=== PATIENT | male | born 1990 | race Caucasian/White ===

== ENCOUNTER 2021-07-22 11:05 | Outpatient (REF) | payer OTHER, SELFPAY ==
[2021-07-22 12:03] LABS: Influenza A PCR NEGATIVE (Negative); Influenza B PCR NEGATIVE (Negative); Resp Syncy Virus RNA Qual PCR NEGATIVE (Negative); SARS COV2 PCR INHOUSE NEGATIVE (Negative)
== END 2021-07-22 11:06 | disposition home or self-care (01) ==
LOC: HO.LNP 11:05
PROVIDERS: Visit Provider Internal Medicine
DX: Z20.822 Contact with and (suspected) exposure to COVID-19 (principal); R43.9 Unspecified disturbances of smell and taste
CPT/HCPCS: 0241U

== ENCOUNTER 2022-05-26 13:27 | Outpatient (REF) | payer OTHER, SELFPAY ==
--- NOTE | ~2022-05-26 | XR_ITS ---
EXAMINATION: CR X-RAY FOOT AND ANKLE RIGHT CLINICAL INFORMATION: Right foot and ankle pain. COMPARISON: None TECHNIQUE: 3 views each of the right foot and ankle were obtained. FINDINGS: The ankle joint and mortise are intact. The tarsal bones are normally aligned. The metatarsals and phalanges are intact. There is no acute fracture or dislocation. The soft tissues are unremarkable. XR/XR ankle RT min 3V IMPRESSION: Unremarkable right foot and ankle.
--- NOTE | ~2022-05-26 | XR_ITS ---
EXAMINATION: CR X-RAY FOOT AND ANKLE RIGHT CLINICAL INFORMATION: Right foot and ankle pain. COMPARISON: None TECHNIQUE: 3 views each of the right foot and ankle were obtained. FINDINGS: The ankle joint and mortise are intact. The tarsal bones are normally aligned. The metatarsals and phalanges are intact. There is no acute fracture or dislocation. The soft tissues are unremarkable. XR/XR foot RT min 3V IMPRESSION: Unremarkable right foot and ankle.
== END 2022-05-26 13:28 | disposition home or self-care (01) ==
LOC: HO.HMGCX 13:27
PROVIDERS: Visit Provider Internal Medicine
DX: S93.401A Sprain of unspecified ligament of right ankle, initial encounter (principal)
CPT/HCPCS: 73610; 73630

== ENCOUNTER 2022-12-08 18:26 | Outpatient (REF) | payer OTHER, SELFPAY ==
[2022-12-08 19:31] LABS: Influenza A PCR NEGATIVE (Negative); Influenza B PCR NEGATIVE (Negative); Resp Syncy Virus RNA Qual PCR NEGATIVE (Negative); SARS COV2 PCR INHOUSE NEGATIVE (Negative)
== END 2022-12-08 18:27 | disposition home or self-care (01) ==
LOC: HO.LNP 18:26
PROVIDERS: Visit Provider Nurse Practitioner Family
DX: R09.89 Other specified symptoms and signs involving the circulatory and respiratory systems (principal); Z20.822 Contact with and (suspected) exposure to COVID-19
CPT/HCPCS: 0241U

== ENCOUNTER 2022-12-20 11:44 | Outpatient (REF) | payer OTHER, SELFPAY ==
--- NOTE | ~2022-12-20 | XR_ITS ---
EXAMINATION: XR chest 2V CLINICAL INFORMATION: Reason for Exam R07.89 - Other chest pain COMPARISON: No prior chest x-ray available in our system for comparison at the time of this dictation. TECHNIQUE: XR chest 2V Lungs and Val: Both lungs are clear. Pleura: Normal. Costophrenic angles are sharp. No pneumothorax. Heart: The heart is normal in size. Mediastinum: The mediastinum is within normal limits.. Bones: Skeletal structures included are normal for patient's age. XR/XR chest 2V IMPRESSION: No radiographic evidence of acute cardiopulmonary disease.
--- NOTE | ~2022-12-20 | XR_ITS ---
EXAMINATION: XR ABDOMEN CLINICAL INFORMATION: Pain COMPARISON: None TECHNIQUE: Frontal view. FINDINGS: There is increased amount of stool projecting over the distribution of the colon raising suspicion for constipation. There is no evidence of bowel obstruction, however. There is no evidence of abnormal calcifications. There is no acute skeletal structure changes. There is no evidence of small-bowel obstruction. There is no free air in the abdomen. XR/XR abdomen 3V IMPRESSION: Increased amount of stool in the colon suggesting constipation. Please correlate with clinical presentation.
== END 2022-12-20 11:45 | disposition home or self-care (01) ==
LOC: HO.HMGCX 11:44
PROVIDERS: Visit Provider Physician Assistant Medical
DX: R07.89 Other chest pain (principal); R10.9 Unspecified abdominal pain; R19.7 Diarrhea, unspecified
CPT/HCPCS: 71046; 74021

== ENCOUNTER 2023-05-16 11:25 | Outpatient (AMB) | payer OTHER, SELFPAY ==
--- NOTE | 2023-05-16 11:28 | AM.OFFWIN_ITS ---
Intake Vital Signs 05/16/23 11:35 Height 5 ft 8 in BP 120/70 Blood Pressure Location Rt brachial Position Sitting Pulse 104 H Pulse Source Pulse Oximeter Temp 98.4 F Temp Source Oral Pulse Oximetry (%) 98 Oxygen Delivery Method Room Air Intake Visit Reasons: EST/right leg redness warm to touch Intake Note: pt is here for right leg redness, warm to touch since morning. Patient Tobacco Use Status: Current everyday Tobacco user Allergies No Known Allergies Allergy (Verified 05/16/23 11:34) Do you need a note to return to daycare/school/sports/work: Yes HPI HPI Comments History of Present Illness Details This is a 32-year-old male who presents to the office today for sick visit. Patient complaining of erythema and swelling of the medial aspect of his right knee. Patient is concerned because he is in contact with a lot of chemicals at work including ZDA (zinc diacrylate), which can cause skin irritation. Patient denies any fevers/chills or other systemic symptoms. He is otherwise feeling well without any chest pain, shortness of breath, abdominal pain nausea/vomiting/diarrhea. [facility] Social History Patient Tobacco Use Status: Current everyday Tobacco user Review of Systems Const All systems reviewed & are unremarkable except as noted in HPI and below Reports no additional complaints Eyes Reports no additional complaints ENT Reports no additional complaints Card Reports no additional complaints Resp Reports no additional complaints GI Reports no additional complaints Musc Reports no additional complaints Skin/Breast Reports system reviewed and no additional complaints, except as documented and Reports change in pigmentation Neuro Reports no additional complaints Psych Reports no additional complaints Endo Reports no additional complaints Tyrone/Lymph Reports no additional complaints Aller/Immun Reports no additional complaints Physical Exam Vital Signs: Last Vital Signs Temp 98.4 F 05/16/23 11:35 Pulse 104 H 05/16/23 11:35 BP 120/70 05/16/23 11:35 Pulse Ox 98 05/16/23 11:35 Oxygen Delivery Method Room Air 05/16/23 11:35 Const General: cooperative, healthy appearing, no acute distress and well developed Orientation/consciousness: patient oriented x3 HEENT Head: Yes normal to inspection Ears: hearing grossly normal bilaterally General nose exam: Normal external nose present Face and sinus: Yes normal facial exam Mouth: Normal oral and palatal mucosa present Eyes General: appearance normal, both eyes and all related structures Pupils: Equal, round and reactive pupils present EOM: EOMs intact bilaterally Resp Effort & Inspection: normal respiratory effort and no respiratory distress Auscultation: clear to auscultation bilaterally Cardio Rate: regular rate Rhythm: regular rhythm Heart sounds: no gallops, no murmurs and no rubs Peripheral pulses: Peripheral pulses 2+ throughout GI Inspection: No distended Palpation (GI): Soft to palpation and nontender Auscultation: normal bowel sounds Skin Other: Poorly defined erythema extending from the medial aspect of his right thigh to the medial aspect of his right brown with minimal swelling localized to the area of erythema. The area is hot to the touch. No induration or fluctuance to suggest abscess. No calf swelling or calf tenderness to palpation. Neuro General: patient oriented x3 Cranial nerves: Yes CN's II-XII intact bilaterally and Yes Equal, round and reactive pupils present Gait exam (Neuro): Normal gait present Motor exam (neuro): 5/5 motor strength present throughout Extrem General: Yes normal to inspection, Yes full ROM and Yes no clubbing, cyanosis or edema Psych Appearance: grossly normal Mental Status: mental status grossly normal Affect: Anxious affect present Assessment & Plan Assessment & Plan (1) Cellulitis of left leg: Code(s): L03.116 - Cellulitis of left lower limb Plan: This is a 32-year-old male presenting with erythema of his right leg. History and physical are most consistent with cellulitis of the right lower extremity. Patient expressed some concern for DVT but there is no calf swelling or tenderness to palpation, no recent immobilization to suggest deep vein thrombosis and he has minimal swelling localized to the area of erythema making cellulitis more likely. However, the patient expressed some concern so I offered him an ultrasound to definitively rule this out but he declined at this time. Patient sent home on p.o. cephalexin 500 mg 4 times daily x7 days. Patient was also given p.o. ibuprofen 800 mg every 8 hours to help with the swelling and pain. Patient advised to elevate the leg. The area of erythema was traced with surgical marker. Patient was instructed to follow-up here or go to the emergency room if erythema starts to spread past the tracing or if he were to develop calf swelling or tenderness to palpation, fever/chills, or other systemic symptoms. Patient advised to follow-up with his primary care physician to monitor for improvement. Patient verbalized understanding and is agreeable with the plan. Medications: New cephalexin 500 mg PO QID 28 caps 0RF ibuprofen 800 mg PO Q8H PRN 20 tabs 0RF pain, swelling Coding Level of Care Code Est Pt Level 3 (88547) Diagnoses Cellulitis of left leg L03.116
[2023-05-16 11:35] VITALS: BP 120/70; PULSE 104; TEMP 36.9; O2SAT 98
== END 2023-05-16 12:10 | disposition home or self-care (01) ==
PROVIDERS: Visit Provider Physician Assistant Medical
DX: L03.116 Cellulitis of left lower limb (principal)
CPT/HCPCS: 99051; 99213

== ENCOUNTER 2025-02-21 19:14 | Inpatient (IN) | payer OTHER, SELFPAY ==
[2025-02-21] VITALS (20 sets, daily range): BP systolic 79–161; BP diastolic 36–116; PULSE 125–169; RESP 18–30; TEMP 32–40.2; O2SAT 98–100; BMI 17.0
--- NOTE | ~2025-02-21 | XR_ITS ---
EXAMINATION: XR CHEST 1 VIEW HISTORY: sternal pain, hypoxia COMPARISON: Comparison is made with the prior examination dated 02/21/2025. FINDINGS: Two AP portable views of the chest performed at 3:41 PM are submitted. There is diffuse airspace opacity throughout the right lung. There is a small airspace opacity in the left midlung zone. There are small bilateral pleural effusions. There is opacification of the left lung base which may represent atelectasis, pneumonia, or pleural fluid. There is no pneumothorax. The heart is normal in size. The bones are intact. XR/XR chest 1V IMPRESSION: Diffuse bilateral airspace opacities throughout the right lung and at the left lung base, with a small additional airspace opacity in the left midlung zone. There are associated small bilateral pleural effusions. Findings may represent diffuse pneumonia or asymmetric pulmonary edema. Electronically signed by: Jerome Mustafa MD 02/27/2025 03:54 PM EDT
--- NOTE | ~2025-02-21 | XR_ITS ---
CLINICAL HISTORY: confirm central line placement 1 view chest x-ray Comparison: Chest x-ray from 02/21/2025. Findings: Endotracheal tube and enteric tube are redemonstrated without significant change. New right IJ approach central line terminates near the cavoatrial junction. Mild worsening of the bibasilar atelectasis. No pneumothorax in this portable image. No pleural effusion. Imaged mediastinum and osseous structures appear unchanged. IMPRESSION: No pneumothorax post right IJ central line placement. This document has been electronically signed by: Corey Lyles MD on 02/21/2025 22:11:12
--- NOTE | ~2025-02-21 | XR_ITS ---
CLINICAL HISTORY: tube placement confirmation 1 view chest x-ray Comparison: Chest x-ray from 12/20/2022 Findings: Endotracheal tube terminates in the mid to upper thoracic trachea. Mild bibasilar atelectasis. No pneumothorax or pleural effusion. Enteric tube terminates in the imaged stomach. Lung apices of the obscured. Osseous structures are unremarkable for [id number]. IMPRESSION: Endotracheal tube terminates in the mid to upper thoracic trachea. This document has been electronically signed by: Corey Lyles MD on 02/21/2025 21:30:59
--- NOTE | ~2025-02-21 | CT_ITS ---
CLINICAL HISTORY: hypoxic CT angiography chest with contrast. With MIP MPR Postprocessing. Comparison: Chest x-ray from 02/21/2025 Findings: The endotracheal tube terminates in the midthoracic trachea. Enteric tube terminates in the imaged stomach. No central pulmonary embolism. No aortic dissection. Mild bibasilar atelectasis. No pneumothorax or pleural effusion. Borderline splenomegaly in the [id number]. Multilevel Schmorl's nodes and endplate sclerosis noted in the imaged thoracic vertebrae. IMPRESSION: 1. No central pulmonary embolism. 2. Mild bibasilar atelectasis. This document has been electronically signed by: Corey Lyles MD on 02/21/2025 21:41:50
--- NOTE | ~2025-02-21 | CT_ITS ---
CLINICAL HISTORY: sepsis CT abdomen and pelvis with contrast Comparison: X-rays of the abdomen from 12/20/2022 Findings: Mild bibasilar atelectasis. Enteric tube terminates in the imaged stomach. Splenomegaly with spleen measuring 14 cm. Mild fat deposition of the liver with motion artifacts. Additional artifacts related to superficial metal and positioning of the upper extremities. Pharyngeal cap of the gallbladder are noted. Adrenal glands are normal. Pancreas unremarkable for technique and artifacts. Mild small bowel dilatation measures 3 cm diameter (imaged 13 of series 27). This is concerning for small bowel obstruction. The appendix is within normal limits. Wall thickening of the large intestine is nonspecific and concerning for colitis (diffuse). Fluid in the large intestine as can be seen with diarrhea type illnesses and colitis. Mild wall thickening of the urinary bladder is nonspecific. Gas and Mcwilliams catheter noted within the urinary bladder. Prostate gland measures 4.4 cm transverse. No free intraperitoneal air. No acute pelvic fracture. Mild height loss of the L1 appears old and accentuated by Schmorl's nodes. IMPRESSION: 1. Mild small bowel dilatation concerning for small bowel obstruction. 2. Wall thickening of the large intestine is nonspecific and concerning for diffuse colitis. This document has been electronically signed by: Corey Lyles MD on 02/21/2025 21:38:19
--- NOTE | ~2025-02-21 | CT_ITS ---
CLINICAL HISTORY: ams CT head without contrast Comparison: None available Findings: No acute intracranial hemorrhage. No midline shift or hydrocephalus. No arterial territorial infarction by CT. Bilateral nasal bone deformities are old. Retention cysts of the partially imaged right maxillary sinus measures 1.2 cm. No acute skull fracture. Previous orbit reconstruction hardware and fixation hardware of the remodeling of the hale of the left maxillary sinus with atelectasis of the remaining left maxillary sinus in the soft tissue opacification. Small left mastoid effusion. IMPRESSION: 1. No acute intracranial abnormality by CT. This document has been electronically signed by: Corey Lyles MD on 02/21/2025 21:29:33
--- NOTE | 2025-02-21 19:27 | ECG_ITS ---
Test Reason : OD Blood Pressure : */* mmHG Vent. Rate : 157 BPM Atrial Rate : 157 BPM P-R Int : 120 ms QRS Dur : 92 ms QT Int : 316 ms P-R-T Axes : 74 84 73 degrees QTcB Int : 510 ms Sinus tachycardia Nonspecific ST-T wave changes Abnormal ECG No previous ECGs available Referred By: Celeste Mcwilliams Electronically Signed By: Jesus Manuel Curran
[2025-02-21] MEDS: 0.9 % Sodium Chloride 1,608 ML 1608 ML IV (19:46)
[2025-02-21] MEDS: cefTRIAXone sodium 2 GM VIAL IVPUSH (19:55)
[2025-02-21] MEDS: Acetaminophen 1,000 MG/100 ML PIGGYBACK 400 MG IV (19:55)
[2025-02-21 20:03] LABS: Venous Blood Gas Refer to POC result
[2025-02-21 20:03] LABS: Basophils Percent Auto 0.2 % (0-2); Eosinophils Percent Auto 0.3 % (0-4); PLT CLUMP 1; SCAN SMEAR FLAG 1
[2025-02-21 20:04] LABS: VBG Base Excess -9.5 mmol/L; VBG HCO3 15 mmol/L (22-26); VBG pCO2 29 mmHg; VBG pH 7.31 (7.32-7.43); VBG pO2 36 mmHg
[2025-02-21 20:05] LABS: Eosinophils Absolute Auto 0.1 X10*3/uL (0.0-0.4); Hematocrit 48.5 % (42.0-52.0); Hemoglobin 17.4 g/dl (14.0-18.0); Imm Gran Abs Auto 0.28 X10*3/uL (0.00-0.03); Imm Gran Pct Auto 1.3 % (0.0-0.4); Lymphocytes Absolute Auto 2.8 X10*3/uL (1.2-4.9); Lymphocytes Percent Auto 12.9 % (20-40); MANUAL DIFF FLAG SCAN; Mean Corpuscular HGB Conc 35.9 g/dl (31.0-36.0); Mean Corpuscular Hemoglobin 32.2 pg (27.0-33.0); Mean Corpuscular Volume 89.6 fL (80.0-98.0); Mean Platelet Volume 11.1 fL (9.4-12.4); Monocytes Absolute Auto 1.3 X10*3/uL (0.1-1.2); Monocytes Percent Auto 5.9 % (2-11); Neutrophils Absolute Auto 17.3 x10*3/uL (2.0-8.3); Neutrophils Percent Auto 79.4 % (45-73); Red Blood Count 5.41 X10*6/uL (4.60-5.80); Red Cell Distribution Width 13.6 % (11.0-16.0)
[2025-02-21] MEDS: Etomidate 20 MG/10 ML VIAL IVPUSH (20:06)
[2025-02-21] MEDS: Rocuronium Bromide 50 MG/5 ML VIAL IVPUSH (20:06)
[2025-02-21] MEDS: propofoL 1,000 MG/100 ML VIAL 9.65 MG IVCONT (20:11)
[2025-02-21 20:12] LABS: Ethanol < 10 mg/dL
[2025-02-21 20:13] LABS: Acetaminophen LAB < 3 mcg/mL (<30); Alanine Aminotransferase 25 U/L (0-40); Albumin Level 4.1 g/dL (3.5-5.0); Alkaline Phosphatase 83 U/L (39-117); Anion Gap 26 (12-20); Aspartate Amino Transferase 72 U/L (5-37); Bilirubin Total 2.8 mg/dL (0.0-1.0); Blood Urea Nitrogen 44 mg/dL (9-16); Carbon Dioxide 14 mmol/L (22-29); Chloride 102 mmol/L (96-108); Creatinine Clr Calc Pharmacy 30.5; Estimated Glomerular Filt Rate 29; Glucose Random 132 mg/dL (60-115); Lipase 70 U/L (8-78); Magnesium 2.2 mg/dL (1.6-2.6); Potassium 4.8 mmol/L (3.3-5.1); Salicylate < 5.0 mg/dL (15-30); Sodium 137 mmol/L (135-145); Total Protein 9.5 g/dL (6.5-8.0)
[2025-02-21 20:17] LABS: Lactic Acid 10.2 mmol/L (0.5-2.0)
--- NOTE | 2025-02-21 20:26 | ED_ITS ---
HPI - General Adult General Chief complaint: Overdose Stated complaint: OD, 4mg narcan given Time Seen by Provider: 02/21/25 19:25 Source: EMS Limitations: other (AMS, OD) History of Present Illness ED Provider: Celeste Mcwilliams PA-C HPI narrative: 34-year-old male with a history of polysubstance abuse presents after heroin overdose. Patient was found in his vehicle unresponsive by police, he received 4 mg of intranasal Narcan. He became slightly more responsive. Related Data Previous Rx's ?Medication ?Instructions ?Recorded cephalexin 500 mg capsule 500 mg PO QID #28 caps 05/16/23 ibuprofen 800 mg tablet 800 mg PO Q8H PRN pain, swelling 05/16/23 #20 tabs Allergies Allergy/AdvReac Type Severity Reaction Status Date / Time No Known Allergies Allergy Verified 02/21/25 19:27 Review of Systems 2 Review of Systems: Unable to obtain Yes all other systems are reviewed and are negative PMFSH Past Medical History Attestation statement: The following information was validated with the patient. Medical History (Updated 02/22/25 @ 03:50 by ROBERT Pineda) Polysubstance abuse Social History Social History Household Members: Unknown / Unable to assess Housing: Unknown / Unable to assess Patient Tobacco Use Status: Tobacco use Unknown Use of substances other than those prescribed or required for medical reasons: Unable to respond Advance Directives: No Advance Directives Information Provided: No Recently lost weight without trying: Unsure Poor oral hygiene: Yes Physical Exam ED Vital Signs: Vital Signs - 24 hr 02/21/25 19:24 02/21/25 19:45 02/21/25 20:15 Temperature 104.4 F H Pulse Rate 162 H Respiratory Rate 25 H Blood Pressure 161/116 H Pulse Oximetry 98 Oxygen Delivery Method Room Air Fraction of Inspired Oxygen 30 02/21/25 20:25 02/21/25 21:33 02/21/25 21:42 Temperature 102.6 F H Pulse Rate 139 H Respiratory Rate Blood Pressure 100/62 79/36 L Pulse Oximetry Oxygen Delivery Method Fraction of Inspired Oxygen 02/21/25 21:42 02/21/25 22:00 02/21/25 22:30 Temperature 101.8 F H Pulse Rate 139 H 128 H Respiratory Rate 18 Blood Pressure 81/51 L 80/52 L Pulse Oximetry 98 Oxygen Delivery Method Mechanical Ventilation Fraction of Inspired Oxygen 30 02/21/25 22:31 02/21/25 22:35 02/21/25 22:40 Temperature 100.3 F Pulse Rate 128 H 127 H 128 H Respiratory Rate 25 H Blood Pressure 80/52 L 80/52 L 80/52 L Pulse Oximetry 100 Oxygen Delivery Method Mechanical Ventilation Fraction of Inspired Oxygen 02/21/25 22:42 02/21/25 22:45 02/21/25 22:50 Temperature 99.3 F Pulse Rate 125 H 128 H Respiratory Rate Blood Pressure 80/51 L 80/53 L Pulse Oximetry Oxygen Delivery Method Fraction of Inspired Oxygen BMI result Body Mass Index 17.0 Const Other: Awake, not coherent, responding to painful stimuli only, cachectic, or mucosa is dry, the patient was disheveled and full of feces both dry an active diarrhea, shaking rigors Eyes Other: Right pupil dilated approximately 8 mm, the left approximately 2 mm Resp Other: Hyperventilating Cardio Other: Warm, perfusing, Skin Other: Multiple track pena noted over upper extremities, no rash Neuro Other: Ulnar responds to painful stimuli Course Reevaluation(s) Reevaluation #1: This is a sepsis focused exam performed at 7:28 p.m. on February 21, obtaining blood cultures, lactic acid, giving weight based IV fluid therapy and initiating antibiotics, in addition to identifying a source for sepsis Time: 19:28 Reevaluation #2: Some labs are returning, he has a acute kidney injury, he could also be in rhabdomyolysis, adding on a CPK Consultations Consultation #1: consult to Dr. Woodward......... I relayed the situation to Dr. Woodward, he would like to wait for CT results before accepting the patient, I will continue to update him with findings as they return Time: 20:33 Consultation #2: Dr. Woodward is accepting the patient, he wants the RR to be increased to 25 on the vent, we are obtaining ABG too Time: 21:43 Medications Administered Generic Name Dose Route Start Last Admin Trade Name Freq PRN Reason Stop Dose Admin Heparin Sodium (Porcine) 5,000 unit 02/21/25 23:00 02/21/25 23:54 Heparin Sodium,Porcine 5,000 Unit/Ml Vial SUBCUT 5,000 unit Q8H KORINA Administration Propofol 1,000 mg in 100 mls @ 0 mls/hr 02/21/25 21:45 02/22/25 01:52 Diprivan IVCONT 50 mcg/kg/min .Q0M KORINA 16.08 mls/hr Administration Protocol Per Protocol Fentanyl 1,000 mcg in 100 mls @ 0 mls/hr 02/21/25 22:15 02/22/25 03:43 Sublimaze/Ns IVCONT 75 mcg/hr .Q0M KORINA 7.5 mls/hr Titration Protocol Per Protocol Norepinephrine Bitartrate 8 mg in 250 mls @ 0 mls/hr 02/21/25 22:15 02/22/25 03:44 Levophed IVCONT 0.26 mcg/kg/min .Q0M KORINA 26.13 mls/hr Titration Protocol Per Protocol Sodium Bicarbonate 150 meq/ 1,000 mls @ 100 mls/hr 02/22/25 00:15 02/22/25 00:47 Dextrose IV 100 mls/hr .Q10H KORINA Administration Midazolam HCl 2 mg 02/21/25 22:11 02/22/25 03:11 Midazolam Hcl 2 Mg/2 Ml Vial IVPUSH 2 mg Q2H PRN Administration Ventilator synchrony Discontinued Medications Generic Name Dose Route Start Last Admin Trade Name Freq PRN Reason Stop Dose Admin Ceftriaxone Sodium 2 gm 02/21/25 19:28 02/21/25 19:55 Ceftriaxone Sodium 2 Gm Vial IVPUSH 02/21/25 19:29 2 gm ONCE ONE Administration Etomidate 20 mg 02/21/25 21:49 02/21/25 20:06 Etomidate 20 Mg/10 Ml Vial IVPUSH 02/21/25 21:50 20 mg ONCE ONE Administration Sodium Chloride 1,608 mls @ 1,608 mls/hr 02/21/25 19:28 02/21/25 20:53 Ns 30 ml/kg infuse over 1 hr (1608 ml) 02/21/25 20:27 Infused IV Infusion .Q1H STA Acetaminophen 1,000 mg in 100 mls @ 400 mls/hr 02/21/25 19:52 02/21/25 20:10 Ofirmev IV 02/21/25 20:06 Infused ONCE ONE Infusion Vancomycin HCl 1,500 mg/ 500 mls @ 333.333 mls/hr 02/21/25 20:15 02/21/25 22:44 Sodium Chloride IV 02/21/25 21:44 Infused ONCE ONE Infusion Piperacillin Sod/Tazobactam 50 mls @ 100 mls/hr 02/21/25 20:15 02/21/25 21:13 Sod 3.375 gm/ Sodium Chloride IV 02/21/25 20:44 Infused ONCE ONE Infusion Sodium Chloride 1,000 mls @ 1,998 mls/hr 02/21/25 21:45 02/21/25 22:25 Ns IV 02/21/25 22:15 Infused .Q31M KORINA Infusion Acetaminophen 1,000 mg in 100 mls @ 400 mls/hr 02/22/25 03:09 02/22/25 03:48 Ofirmev IV 02/22/25 03:23 Infused ONCE ONE Infusion Iohexol 100 ml 02/21/25 20:41 02/21/25 20:41 Iohexol 350 Mg/Ml 100 Ml Infus..Btl IV 02/21/25 20:42 85 ml ONCE ONE Administration Rocuronium [place] 50 mg 02/21/25 21:50 02/21/25 20:06 Rocuronium [place] 50 Mg/5 Ml Vial IVPUSH 02/21/25 21:51 50 mg ONCE ONE Administration Procedures Procedure Narrative Procedure Narrative: Ultrasound-guided IV 18 gauge 1-3/4 inch IV placed in right upper extremity, adequate blood return, flushes well secured with Tegaderm Central Line Placement Right IJ: Time Out Performed: No Patient Placed on Monitor/Pulse Ox: Yes MD Prep: mask, gown and gloves Central Line Prep: Chlorhexidine scrub Ultrasound Used for Placement: Yes Central Line Lumen Inserted: triple Post Procedure: sutured in place, good blood return, all ports aspirated, flushed, capped and sterile dressing applied Post Procedure X-Ray: tip of catheter in good position Patient Tolerated Procedure: no complications Intubation Intubation Type:: Emergency Endotracheal Intubation Intubation Date:: 02/21/25 Time out performed: No sedative: Etomidate Mg Given: 20 paralytic: Rocuronium Mg Given: 50 Laryngoscope: fiber optic video scope ET Tube Size: 7.5 ET Tube Uncuffed: Yes Tube Secured Depth (cm): 22 Tube Secured Location: lips Tube Placement Confirmation: visualized tube passing through cords, equal breath sounds bilaterally and confirmation by capnometry Patient Tolerated Procedure: no complications Medical Decision Making Medical Decision Making MDM Narrative: 34-year-old male with a history of polysubstance abuse presents after heroin overdose. Patient was found in his vehicle unresponsive by police, he received 4 mg of intranasal Narcan. He became slightly more responsive. Problem: Polysubstance abuse History: Per EMS which is limited I have considered the following differential diagnoses: Overdose, Toxic ingestion, sepsis, intracranial hemorrhage, acute intra-abdominal pathology, PE Plan: The patient is tachycardic 160s, hypertensive, quite tachypneic, his CO2 is only 12, his respiratory rate is 60s, the concern is he will fatigue, we will be prepping for intubation. The patient is also febrile, concerned for sepsis. In addition to screening labs, we will be obtaining blood cultures, lactic acid, chest x-ray, urinalysis, viral panel, inflammatory markers. We will be starting empiric weight based IV fluids and broad-spectrum antibiotics. Giving rectal Tylenol. Also concerned for toxidrome, we will be obtaining an ethanol and a drug screen. I am concerned for intracranial hemorrhage, he has a blown pupil, we will be obtaining a CT of the brain. He is actively spilling large quantities of stool, concerned for intra-abdominal pathology, obtaining a CT of the abdomen. Unclear if he is hypoxic, we are not getting appropriate oxygen saturations, given his tachypnea and tachycardia, I am concerned for PE, we will obtain a CT angio of the chest. Drug screen pending, he could have use cocaine, given tachycardia with ischemic changes in EKG adding a troponin. We will be reaching out to the ICU for consult. I have independently reviewed the following tests: Labs: Significant leukocytosis with left shift, not anemic, acute kidney injury creatinine is 2.56, gap is 26, 1st lactic is 10.2, LFTs are elevated, CPK 503, troponin 1268.7, venous pH 7.31, bicarb 15, drug screen positive for cocaine and fentanyl, serum ethanol less than 10, viral panel negative, urine infected, Chest x-ray 1. IMPRESSION: Endotracheal tube terminates in the mid to upper thoracic trachea. Chest x-ray 2. IMPRESSION: No pneumothorax post right IJ central line placement. EKG: Sinus tachycardia, rate of 157, ST and T-wave abnormalities inferior lead, QTC 510 CT brain: MPRESSION: 1. No acute intracranial abnormality by CT. CT abdomen and pelvis: IMPRESSION: 1. Mild small bowel dilatation concerning for small bowel obstruction. 2. Wall thickening of the large intestine is nonspecific and concerning for diffuse colitis. CT angio chest:IMPRESSION: 1. No central pulmonary embolism. 2. Mild bibasilar atelectasis. Lab Data 02/21/25 19:48 02/21/25 19:48 Labs: Lab Results 02/21/25 02/21/25 02/21/25 Range/Units 19:48 20:00 20:04 WBC 21.8 H (4.8-10.8) X10*3/uL RBC 5.41 (4.60-5.80) X10*6/uL Hgb 17.4 (14.0-18.0) g/dl Hct 48.5 (42.0-52.0) % MCV 89.6 (80.0-98.0) fL MCH 32.2 (27.0-33.0) pg MCHC 35.9 (31.0-36.0) g/dl RDW 13.6 (11.0-16.0) % Plt Count 101 L (160-400) X10*3/uL MPV 11.1 (9.4-12.4) fL Immature Gran % (Auto) 1.3 H (0.0-0.4) % Neut % (Auto) 79.4 H (45-73) % Lymph % (Auto) 12.9 L (20-40) % [place] % (Auto) 5.9 (2-11) % Eos % (Auto) 0.3 (0-4) % Baso % (Auto) 0.2 (0-2) % Lymph # (Auto) 2.8 (1.2-4.9) X10*3/uL [place] # (Auto) 1.3 H (0.1-1.2) X10*3/uL Eos # (Auto) 0.1 (0.0-0.4) X10*3/uL Baso # (Auto) 0.0 (0.0-0.2) X10*3/uL Abs Immat Gran (auto) 0.28 H (0.00-0.03) X10*3/uL Absolute Neuts (auto) 17.3 H (2.0-8.3) x10*3/uL Absolute Nucleated RBC 0.000 (0.0-0.012) X10*3/uL Nucleated RBC % (auto) 0.0 (0.0-0.2) /100WBC Smear Tech's Comments VERIFIED Hold Blue Top SEE NOTE VBG pH 7.31 L (7.32-7.43) VBG pCO2 29 mmHg VBG pO2 36 mmHg VBG HCO3 15 L (22-26) mmol/L VBG O2 Saturation 47.0 % VBG Base Excess -9.5 mmol/L Sodium 137 (135-145) mmol/L Potassium 4.8 (3.3-5.1) mmol/L Chloride 102 (96-108) mmol/L Carbon Dioxide 14 L (22-29) mmol/L Anion Gap 26 H (12-20) BUN 44 H (9-16) mg/dL Creatinine 2.56 H (0.5-1.4) mg/dL Estim Creat Clear Calc 30.5 Estimated GFR 29 Random Glucose 132 H (60-115) mg/dL Lactic Acid 10.2 H* (0.5-2.0) mmol/L Lactic Acid F/U @ 2Hr (0.5-2.0) mmol/L Calcium 10.0 (8.4-10.2) mg/dL Magnesium 2.2 (1.6-2.6) mg/dL Total Bilirubin 2.8 H (0.0-1.0) mg/dL AST 72 H (5-37) U/L ALT 25 (0-40) U/L Alkaline Phosphatase 83 (39-117) U/L Total Creatine Kinase 503 H (38-174) U/L Troponin I High Sens 1268.7 H* (<3.5-35.0) ng/L C-Reactive Protein 40.68 H (< or = 0.50) mg/dL Total Protein 9.5 H (6.5-8.0) g/dL Albumin 4.1 (3.5-5.0) g/dL Lipase 70 (8-78) U/L Urine Color Urine Appearance Urine pH (5.0-9.0) Ur Specific [place] (1.005-1.025) Urine Protein (Neg-Trace) mg/dL Urine Glucose (UA) (Negative) mg/dL Urine Ketones (Negative) mg/dL Urine Blood (Negative) Urine Nitrite (Negative) Ur Leukocyte Esterase (Negative) Urine RBC (0-2) /HPF Urine WBC (0-5) /HPF Ur Squamous Epith Cells (0-2) /HPF Urine Bacteria (None Seen) Hyaline Casts (0-2) /LPF Granular Casts Salicylates < 5.0 L (15-30) mg/dL Urine Opiates Screen (Not Detect) Ur Buprenorphine Scrn (Not Detect) ng/mL Ur Oxycodone Screen (Not Detect) ng/mL Urine Methadone Screen (Not Detect) ng/mL Urine Fentanyl Screen (Not Detect) Acetaminophen < 3 (<30) mcg/mL Ur Barbiturates Screen (Not Detect) Ur Phencyclidine Scrn (Not Detect) Ur Amphetamines Screen (Not Detect) U Benzodiazepines Scrn (Not Detect) Urine Cocaine Screen (Not Detect) U Marijuana (THC) Screen (Not Detect) Ethyl Alcohol < 10 mg/dL Influenza Type A (PCR) NEGATIVE (Negative) Influenza Type B (PCR) NEGATIVE (Negative) RSV RNA Qual (PCR) NEGATIVE (Negative) SARS-CoV-2 RNA (RT-PCR) NEGATIVE (Negative) 02/21/25 02/21/25 02/21/25 Range/Units 20:48 22:02 22:09 WBC (4.8-10.8) X10*3/uL RBC (4.60-5.80) X10*6/uL Hgb (14.0-18.0) g/dl Hct (42.0-52.0) % MCV (80.0-98.0) fL MCH (27.0-33.0) pg MCHC (31.0-36.0) g/dl RDW (11.0-16.0) % Plt Count (160-400) X10*3/uL MPV (9.4-12.4) fL Immature Gran % (Auto) (0.0-0.4) % Neut % (Auto) (45-73) % Lymph % (Auto) (20-40) % [place] % (Auto) (2-11) % Eos % (Auto) (0-4) % Baso % (Auto) (0-2) % Lymph # (Auto) (1.2-4.9) X10*3/uL [place] # (Auto) (0.1-1.2) X10*3/uL Eos # (Auto) (0.0-0.4) X10*3/uL Baso # (Auto) (0.0-0.2) X10*3/uL Abs Immat Gran (auto) (0.00-0.03) X10*3/uL Absolute Neuts (auto) (2.0-8.3) x10*3/uL Absolute Nucleated RBC (0.0-0.012) X10*3/uL Nucleated RBC % (auto) (0.0-0.2) /100WBC Smear Tech's Comments Hold Blue Top VBG pH 7.31 L (7.32-7.43) VBG pCO2 31 mmHg VBG pO2 75 mmHg VBG HCO3 16 L (22-26) mmol/L VBG O2 Saturation 92.0 % VBG Base Excess -8.8 mmol/L Sodium (135-145) mmol/L Potassium (3.3-5.1) mmol/L Chloride (96-108) mmol/L Carbon Dioxide (22-29) mmol/L Anion Gap (12-20) BUN (9-16) mg/dL Creatinine (0.5-1.4) mg/dL Estim Creat Clear Calc Estimated GFR Random Glucose (60-115) mg/dL Lactic Acid (0.5-2.0) mmol/L Lactic Acid F/U @ 2Hr 1.1 (0.5-2.0) mmol/L Calcium (8.4-10.2) mg/dL Magnesium (1.6-2.6) mg/dL Total Bilirubin (0.0-1.0) mg/dL AST (5-37) U/L ALT (0-40) U/L Alkaline Phosphatase (39-117) U/L Total Creatine Kinase (38-174) U/L Troponin I High Sens (<3.5-35.0) ng/L C-Reactive Protein (< or = 0.50) mg/dL Total Protein (6.5-8.0) g/dL Albumin (3.5-5.0) g/dL Lipase (8-78) U/L Urine Color [place] A Urine Appearance Turbid Urine pH 5.0 (5.0-9.0) Ur Specific [place] 1.025 (1.005-1.025) Urine Protein 300 (3+) H (Neg-Trace) mg/dL Urine Glucose (UA) Negative (Negative) mg/dL Urine Ketones Negative (Negative) mg/dL Urine Blood Large (3+) H (Negative) Urine Nitrite Positive H (Negative) Ur Leukocyte Esterase Small (1+) H (Negative) Urine RBC 6-10 H (0-2) /HPF Urine WBC 11-20 (0-5) /HPF Ur Squamous Epith Cells 11-20 (0-2) /HPF Urine Bacteria 1+ (None Seen) Hyaline Casts 6-10 (0-2) /LPF Granular Casts Present Salicylates (15-30) mg/dL Urine Opiates Screen Not Detected (Not Detect) Ur Buprenorphine Scrn Not Detected (Not Detect) ng/mL Ur Oxycodone Screen Not Detected (Not Detect) ng/mL Urine Methadone Screen Not Detected (Not Detect) ng/mL Urine Fentanyl Screen POSITIVE H (Not Detect) Acetaminophen (<30) mcg/mL Ur Barbiturates Screen Not Detected (Not Detect) Ur Phencyclidine Scrn Not Detected (Not Detect) Ur Amphetamines Screen Not Detected (Not Detect) U Benzodiazepines Scrn Not Detected (Not Detect) Urine Cocaine Screen POSITIVE H (Not Detect) U Marijuana (THC) Screen Not Detected (Not Detect) Ethyl Alcohol mg/dL Influenza Type A (PCR) (Negative) Influenza Type B (PCR) (Negative) RSV RNA Qual (PCR) (Negative) SARS-CoV-2 RNA (RT-PCR) (Negative) Critical Care Time Critical Care Time Critical Care Time: Yes Total Critical Care Time: 60 Attestation: I Celeste Mcwilliams PA-C have personally performed critical care time not including lines and procedures. Discharge Plan Discharge Clinical Impression: Overdose, Sepsis, ENRRIQUE (acute kidney injury), Colitis, Acute alteration in mental status Patient Disposition: Admitted As Inpatient Interventions: Admission Worksheet (ED) Last Done: 02/21/25 23:30 Discharge Date/Time: 02/21/25 23:31
[2025-02-21 20:35] LABS: Troponin-I High Sensitivity 1268.7 ng/L (<3.5-35.0)
[2025-02-21 20:38] LABS: Influenza A PCR NEGATIVE (Negative); Influenza B PCR NEGATIVE (Negative); Resp Syncy Virus RNA Qual PCR NEGATIVE (Negative); SARS COV2 PCR INHOUSE NEGATIVE (Negative)
[2025-02-21 20:41] LABS: Platelet Count 101 X10*3/uL (160-400); SLIDE REVIEW VERIFIED; White Blood Count 21.8 X10*3/uL (4.8-10.8)
[2025-02-21] MEDS: iohexoL 350 MG/ML 100 ML INFUS..BTL IV (20:41)
[2025-02-21] MEDS: Piperacillin Sodium/Tazobactam 3.375 GM in 0.9 % Sodium Chloride 50 ML IV (20:43)
[2025-02-21 20:54] LABS: C Reactive Protein 40.68 mg/dL (< or = 0.50)
[2025-02-21] MEDS: vancomycin HCL 1,500 MG in 0.9 % Sodium Chloride 500 ML 333.33 MG IV (21:03)
[2025-02-21 21:06] LABS: Appearance Urine Turbid; Color Urine Orange; Glucose Urine UA Negative (Negative); Leukocyte Esterase Urine Small (1+) (Negative); Nitrite Urine Positive (Negative); Specific Gravity - Urine 1.025 (1.005-1.025); UMIC TRIGGER UACC YES; Urine Blood Large (3+) (Negative); Urine Ketones Negative (Negative); Urine Protein 300 (3+) mg/dL (Neg-Trace)
[2025-02-21 21:07] LABS: Amphetamine Screen Urine Not Detected (Not Detect); Barbiturates, Urine Not Detected (Not Detect); Benzodiazepines Screen Urine Not Detected (Not Detect); Buprenorphine Scr Not Detected (Not Detect); Cannabinoid Screen Urine Not Detected (Not Detect); Cocaine Screen Urine POSITIVE (Not Detect); Fentanyl, urine POSITIVE (Not Detect); Methadone Screen, Urine Not Detected (Not Detect); Opiate Screen Urine Not Detected (Not Detect); Oxycodone Screen Urine Not Detected (Not Detect); Phencyclidine Screen Urine Not Detected (Not Detect)
[2025-02-21 21:14] LABS: Bacteria Urine 1+ (None Seen); Granular Casts Urine Present; UACC Culture Trigger YES
--- NOTE | 2025-02-21 21:16 | PC.NURSE ---
Addendum entered by Soren Chavis 02/21/25 21:26: OG tube placed at time of intubation. Original Note: 1919 - pt was biba ound in car unresponsive by PD, surrounded by needles/heroin, 4mg IN Narcan given and became slightly responsive, for ems painful stimuli. on arrival pt is tachypneic, tachycardiac, R. pupil slightly larger compared to Antonio Coreas PA to room. 1944 temp sensing almeida placed with no urine output. U/S IV established to RUE by PA, pt was difficult stick delay in iv/labs obtained. delay in ekg as pt tremulous, not accurate reading. 1999- pt placed on nonrebreather and RT notified, set up for intubation. 2005 - 20mg etomidate and 50mg rocuronium given, 2007 intubated 7.5 the 23 at lip. 2010 - Propofol started at 30mcg/kg/min, well sedated. [address] with this RN and RT, no issues, return to room at 2042. 2047 - approx 50mL orange UO, sent to lab. 2049- pt remains febrile at 102.4, ice packs placed on pt. 2120 - central line placed by ROBERT to R. neck.
--- NOTE | 2025-02-21 21:33 | PC.NURSE ---
pt noted to be moving extremities, kurt marie verbal to give 20mg propofol bolus, given at this time. infusion rate increased to 40mcg/kg/min.
--- NOTE | 2025-02-21 21:37 | PC.NURSE ---
per ROBERT ok to use central line at this time, infusions moved to this access.
[2025-02-21] MEDS: 0.9 % Sodium Chloride 1,000 ML 1998 ML IV (21:38)
--- NOTE | 2025-02-21 21:45 | PC.NURSE ---
cooling blanket on pt per Lyudmila JONES verbal temp 102.4F.
[2025-02-21 21:52] LABS: Reflex Lactate? Lactic Acid Added
--- NOTE | 2025-02-21 22:07 | P.HPCC_ITS ---
History of Present Illness Date of Service: 02/21/25 Attending physician on admission: Victorino Woodward Chief Complaint: Unresponsive ?The patient is a 34-year-old male with a past medical history of polysubstance abuse,? who presented to emergency department was a overdose. ? Patient was found in his vehicle unresponsive by police,? received 4 mg of intro nasal Narcan,? and became slightly more responsive. On arrival to the emergency department,? patient is tachycardic to 150s, respiratory rate 50s and 60s,? febrile to 104, required emergent intubation for airway protection. Laboratory data significant for WBC 21.8,? serum bicarb 14, anion gap 26, BUN 44, creatinine 2.56, lactic 10.2,? Troponin sensitivity 1268, CK 503. ?Venous gas:? 7. URINE TOX: ? positive for fentanyl and cocaine, also positive for UTI? IMAGING:? ?HEAD CT: no acute findings ?ABDOMINAL CT: ? concerning for small bowel obstruction ?Chest CT:? no acute infectious process ?ED course:? ?Patient received? about 4 L? bolus,? Narcan, vancomycin 1500mg, Zosyn 3.375 g, ceftriaxone 2 g and Tylenol 1 g.? Started on vasopressors due to high sedation requirements? Review of Systems 2 Review of Systems: Yes unobtainable due to endotracheal tube PMFSH Past Medical History Medical History (Updated 02/22/25 @ 03:50 by ROBERT Pineda) Polysubstance abuse Social History Social History Household Members: Unknown / Unable to assess Housing: Unknown / Unable to assess Patient Tobacco Use Status: Tobacco use Unknown Use of substances other than those prescribed or required for medical reasons: Unable to respond Currently Displaying Signs/Symptoms of Drug Intoxication Withdrawal: No Advance Directives: No Advance Directives Information Provided: No Recently lost weight without trying: Unsure Poor oral hygiene: Yes Meds Allergies Allergy/AdvReac Type Severity Reaction Status Date / Time No Known Allergies Allergy Verified 02/21/25 19:27 Active Medications: Current Medications Propofol (Diprivan) 1,000 mg in 100 mls @ 0 mls/hr IVCONT .Q0M KORINA; Protocol Last Titration: 02/21/25 21:33 Dose: 40 mcg/kg/min, 12.86 mls/hr Sodium Chloride (Ns) 1,000 mls @ 1,998 mls/hr IV .Q31M KORINA Stop: 02/21/25 22:15 Last Admin: 02/21/25 21:38 Dose: 1,998 mls/hr Home Medications ?Medication ?Instructions ?Recorded ?Confirmed ?Last Taken ?Type buprenorphine 12 mg-naloxone 3 mg 1 film sublingual BID 02/22/25 02/22/25 Unknown History sublingual film (Suboxone) clonidine HCl 0.1 mg tablet 0.1 mg PO BID PRN anxiety 02/22/25 02/22/25 Unknown History Physical Exam 2 Vital Signs: Vital Signs: Last Vital Signs Temp 101.8 F H 02/21/25 21:42 Pulse 139 H 02/21/25 21:42 Resp 18 02/21/25 21:42 BP 81/51 L 02/21/25 21:42 Pulse Ox 98 02/21/25 21:42 O2 Del Method Mechanical Ventil ation 02/21/25 21:42 FiO2 30 02/21/25 20:15 BMI result Body Mass Index 17.0 Sepsis focused exam performed at 2230 on 02/21/2025 ?General:? Intubated ?HEENT:? Head is normocephalic, atraumatic, Right pupil round reactive to light accommodation, Left pupil constrictive, but reactive to light.? Buccal mucosa is dry, Neck is supple ?Cardiac:? Clear S1-S2, no murmurs rubs or gallops. ?Pulmonary:? Clear to auscultation, no wheezes, rales or rhonchi. ?Abdomen:? ?Abdomen soft, non-tender, non-distended. Normal bowel sounds. No pulsatile mass. No hepatosplenomegaly. ?Musculoskeletal:? Moving all 4 extremities randmly and to painful stimuli.? The strength is 5/5 bilaterally and throughout all 4 extremities.? Gait not assessed at this point. ?Neurologic:? No focal deficits noted.Motor strength as above.?? ?Skin:? Left hand track pena, discoloration. ? No ulcers. Vascular:? 2+ pulses upper and lower extremities distally.? Results Labs 02/22/25 04:08 02/22/25 04:08 Labs: Laboratory Results - last 24 hr 02/21/25 02/21/25 02/21/25 19:48 20:00 20:48 MCV 89.6 MCH 32.2 MCHC 35.9 RDW 13.6 Plt Count 101 L MPV 11.1 Immature Gran % (Auto) 1.3 H Neut % (Auto) 79.4 H Lymph % (Auto) 12.9 L [place] % (Auto) 5.9 Eos % (Auto) 0.3 Baso % (Auto) 0.2 Lymph # (Auto) 2.8 [place] # (Auto) 1.3 H Eos # (Auto) 0.1 Baso # (Auto) 0.0 Abs Immat Gran (auto) 0.28 H Absolute Neuts (auto) 17.3 H Absolute Nucleated RBC 0.000 Nucleated RBC % (auto) 0.0 Smear Tech's Comments VERIFIED Hold Blue Top SEE NOTE VBG pH 7.31 L VBG pCO2 29 VBG pO2 36 VBG HCO3 15 L VBG O2 Saturation 47.0 VBG Base Excess -9.5 Anion Gap 26 H Estim Creat Clear Calc 30.5 Estimated GFR 29 Random Glucose 132 H Lactic Acid 10.2 H* Calcium 10.0 Magnesium 2.2 Total Bilirubin 2.8 H AST 72 H ALT 25 Alkaline Phosphatase 83 Total Creatine Kinase 503 H C-Reactive Protein 40.68 H Total Protein 9.5 H Albumin 4.1 Lipase 70 Urine Color Ider A Urine Appearance Turbid Urine pH 5.0 Ur Specific [place] 1.025 Urine Protein 300 (3+) H Urine Glucose (UA) Negative Urine Ketones Negative Urine Blood Large (3+) H Urine Nitrite Positive H Ur Leukocyte Esterase Small (1+) H Urine RBC 6-10 H Urine WBC 11-20 Ur Squamous Epith Cells 11-20 Urine Bacteria 1+ Hyaline Casts 6-10 Granular Casts Present Salicylates < 5.0 L Urine Opiates Screen Not Detected Ur Buprenorphine Scrn Not Detected Ur Oxycodone Screen Not Detected Urine Methadone Screen Not Detected Urine Fentanyl Screen POSITIVE H Acetaminophen < 3 Ur Barbiturates Screen Not Detected Ur Phencyclidine Scrn Not Detected Ur Amphetamines Screen Not Detected U Benzodiazepines Scrn Not Detected Urine Cocaine Screen POSITIVE H U Marijuana (THC) Screen Not Detected Ethyl Alcohol < 10 Influenza Type A (PCR) NEGATIVE Influenza Type B (PCR) NEGATIVE RSV RNA Qual (PCR) NEGATIVE SARS-CoV-2 RNA (RT-PCR) NEGATIVE Assessment and Plan (1) Overdose: Status: Acute (2) Elevated troponin: Status: Acute (3) Acute respiratory failure: Status: Acute (4) UTI (urinary tract infection): Status: Acute (5) Cellulitis: Status: Acute (6) Small bowel obstruction: Status: Acute (7) ENRRIQUE (acute kidney injury): Status: Acute (8) Polysubstance abuse: Status: Acute Plan 34-year-old male with a past medical history of polysubstance abuse? admitted to ICU for management of septic shock and? overdose with fentanyl cocaine Plan: Neuro:? No acute issues. Cardiac Septic shock:? Skin vs UTI,? patient left hand has concerning cellulitis,? urine is positive for UTI.? lactic was 10 initially,? down trended to 1.1 after fluid resuscitation.? Received vancomycin and Zosyn in the emergency department.? We will continue.? Wean off vasopressors as tolerated.? ?Elevated troponin:? EKG with no acute changes,? troponin elevated to 1268,? likely due to demand from cocaine abuse.? We will repeat trop? Pulmonary:?? Acute respiratory failure secondary? overdose:? patient?s U tox positive for fentanyl and cocaine. ? Cause of sudden decompensation.? Wean off vent as tolerated Renal:??? ENRRIQUE,? nonoliguric. ? Received fluids in the emergency department. ? Continue to monitor renal indices and urine output Endo:? No acute issues.?? GI:?? Mild Small-bowel obstruction:? patient does not have increased amount of output from OG,? we will place OG tube intermittent suction.? Continue antibiotics,? general surgery consult in the morning.? ID:? ?Septic shock/ Cellulitis/ UTI: ? left hand concerning for cellulitis,? urine positive for UTI.? received empiric Zosyn and vancomycin in the emergency department.? Blood cultures are pending.? Continue vancomycin and Zosyn until blood cultures resulted Heme/Onc:? No acute issues. Psych: ? polysubstance abuse: ? consult addiction medicine when patient is extubated Miscellaneous:? No acute issues. Prophylaxis:? Heparin subcut/ IV protnix? CODE: FULL CODE Critical care time spent:? 90 minutes
[2025-02-21 22:13] LABS: Venous Blood Gas Refer to POC result
[2025-02-21 22:14] LABS: VBG Base Excess -8.8 mmol/L; VBG HCO3 16 mmol/L (22-26); VBG pCO2 31 mmHg; VBG pH 7.31 (7.32-7.43); VBG pO2 75 mmHg
[2025-02-21] MEDS: Midazolam HCl 2 MG/2 ML VIAL IVPUSH (22:17)
[2025-02-21 22:23] LABS: ~Lactic Acid-LAB USE ONLY 1.1 mmol/L (0.5-2.0)
[2025-02-21] MEDS: fentaNYL citrate/NS 1,000 MCG/100 ML PLAST..BAG 2.5 MCG IVCONT (22:23)
[2025-02-21] MEDS: Norepinephrine Bitartrate/D5W 8 MG/250 ML PLAST..BAG 5.03 MG IVCONT (22:30)
--- NOTE | 2025-02-21 22:31 | PC.NURSE ---
Fang ARANGO aware of HR/BP.
--- NOTE | 2025-02-21 23:02 | PC.NURSE ---
report givn to Jennifer MOLINA, RT at bedside for transport.
[2025-02-21] MEDS: Heparin Sodium,Porcine 5,000 UNIT/ML VIAL 5000 UNIT SUBCUT (23:54)
[2025-02-21 23:59] LABS: VBG Base Excess -10.9 mmol/L; VBG HCO3 13 mmol/L (22-26); VBG pCO2 25 mmHg; VBG pH 7.32 (7.32-7.43); VBG pO2 38 mmHg
[2025-02-22] VITALS (47 sets, daily range): BP systolic 90–119; BP diastolic 55–90; PULSE 104–143; RESP 22–35; TEMP 35–39.5; O2SAT 97–100; BMI 18.3
--- NOTE | 2025-02-22 | ECG_ITS ---
Test Reason : elevated trop Blood Pressure : */* mmHG Vent. Rate : 141 BPM Atrial Rate : 141 BPM P-R Int : 112 ms QRS Dur : 94 ms QT Int : 356 ms P-R-T Axes : 66 88 78 degrees QTcB Int : 545 ms Sinus tachycardia Nonspecific T wave abnormality Abnormal ECG When compared with ECG of 21-Feb-2025 20:19, No significant change was found Referred By: Fang Christina Electronically Signed By: Jesus Manuel Curran
--- NOTE | 2025-02-22 | ECG_ITS ---
Test Reason : NSTEMI? Blood Pressure : */* mmHG Vent. Rate : 112 BPM Atrial Rate : 112 BPM P-R Int : 118 ms QRS Dur : 84 ms QT Int : 332 ms P-R-T Axes : 59 85 72 degrees QTcB Int : 453 ms Sinus tachycardia Otherwise normal ECG When compared with ECG of 22-Feb-2025 04:46, Non-specific change in ST segment in Lateral leads Nonspecific T wave abnormality no longer evident in Lateral leads Referred By: Jesus Manuel Curran Electronically Signed By: Jesus Manuel Curran
[2025-02-22 00:44] LABS: Troponin-I High Sensitivity 1968.3 ng/L (<3.5-35.0)
[2025-02-22] MEDS: Sodium Bicarbonate 8.4% 150 MEQ in Dextrose 5 % 850 ML 100 MEQ IV ×2 (00:47→10:15)
[2025-02-22] MEDS: propofoL 1,000 MG/100 ML VIAL 16.08 MG IVCONT ×4 (01:52→18:04)
[2025-02-22 02:40] LABS: Venous Blood Gas Refer to POC result
[2025-02-22] MEDS: Midazolam HCl 2 MG/2 ML VIAL IVPUSH (03:11)
[2025-02-22] MEDS: Acetaminophen 1,000 MG/100 ML PIGGYBACK 400 MG IV ×2 (03:33→20:02)
[2025-02-22 04:21] LABS: Basophils Percent Auto 0.2 % (0-2); Hemoglobin 13.3 g/dl (14.0-18.0); Imm Gran Abs Auto 0.08 X10*3/uL (0.00-0.03); Imm Gran Pct Auto 0.7 % (0.0-0.4); Lymphocytes Absolute Auto 1.9 X10*3/uL (1.2-4.9); Lymphocytes Percent Auto 16.3 % (20-40); Mean Corpuscular HGB Conc 36.9 g/dl (31.0-36.0); Mean Corpuscular Hemoglobin 32.4 pg (27.0-33.0); Mean Corpuscular Volume 87.6 fL (80.0-98.0); Mean Platelet Volume 10.6 fL (9.4-12.4); Monocytes Absolute Auto 0.8 X10*3/uL (0.1-1.2); Monocytes Percent Auto 6.6 % (2-11); Neutrophils Absolute Auto 8.9 x10*3/uL (2.0-8.3); Neutrophils Percent Auto 76.2 % (45-73); Red Blood Count 4.11 X10*6/uL (4.60-5.80); Red Cell Distribution Width 13.5 % (11.0-16.0); White Blood Count 11.7 X10*3/uL (4.8-10.8)
[2025-02-22 04:22] LABS: MANUAL DIFF FLAG SCAN; Venous Blood Gas Refer to POC result
[2025-02-22 04:25] LABS: VBG Base Excess -2.5 mmol/L; VBG HCO3 19 mmol/L (22-26); VBG pCO2 26 mmHg; VBG pH 7.47 (7.32-7.43); VBG pO2 52 mmHg
[2025-02-22 04:40] LABS: Platelet Count 59 X10*3/uL (160-400); SLIDE REVIEW VERIFIED
[2025-02-22 04:43] LABS: B Type Natriuretic Peptide 717 pg/mL (<100)
[2025-02-22 04:45] LABS: Troponin-I High Sensitivity 2376.3 ng/L (<3.5-35.0)
[2025-02-22 04:54] LABS: Alanine Aminotransferase 23 U/L (0-40); Albumin Level 2.7 g/dL (3.5-5.0); Alkaline Phosphatase 56 U/L (39-117); Anion Gap 12 (12-20); Aspartate Amino Transferase 107 U/L (5-37); Bilirubin Total 1.1 mg/dL (0.0-1.0); Blood Urea Nitrogen 39 mg/dL (9-16); Calcium 7.3 mg/dL (8.4-10.2); Carbon Dioxide 18 mmol/L (22-29); Chloride 110 mmol/L (96-108); Estimated Glomerular Filt Rate 52; Glucose Random 118 mg/dL (60-115); Magnesium 1.8 mg/dL (1.6-2.6); Phosphorus 2.9 mg/dL (2.7-4.5); Potassium 2.9 mmol/L (3.3-5.1); Sodium 137 mmol/L (135-145); Total Protein 6.3 g/dL (6.5-8.0)
[2025-02-22] MEDS: Piperacillin Sodium/Tazobactam 4.5 GM in 0.9 % Sodium Chloride 100 ML IV (05:01)
[2025-02-22] MEDS: Pantoprazole Sodium 40 MG/10 ML VIAL IVPUSH ×2 (05:29→16:25)
[2025-02-22] MEDS: Potassium Chloride/H20 40 MEQ/100 ML PIGGYBACK 50 MEQ IV ×3 (05:30→19:16)
[2025-02-22] MEDS: Albumin Human 25 % 100 ML IV ×4 (05:45→22:43)
[2025-02-22] MEDS: Norepinephrine Bitartrate/D5W 8 MG/250 ML PLAST..BAG 28.14 MG IVCONT (05:56)
[2025-02-22] MEDS: fentaNYL citrate/NS 1,000 MCG/100 ML PLAST..BAG 12.5 MCG IVCONT ×2 (05:56→12:39)
--- NOTE | 2025-02-22 06:06 | HO.SKINPHOTO ---
Location: Left hand Category: ?lesion vs ulcer/cellulitis from IVDU/injections
--- NOTE | 2025-02-22 06:08 | PC.ADMIT ---
Pt admitted to ICU from ED at approx 2315. Upon initial assessment- pt sedated on propofol/fentanyl gtts, intermittently emerging from sedation, reaching for lines/tubes. PRN versed administered per MAR with some effect. L pupil constricted- [employer]ING [employer] [place] aware. Tmax 103.1 via core bladder probe-ice bags applied to B/L axilla and neck in addition to APAP 1000 mg IV x1, given with good effect. Sinus tach on tele, HR 130-140s. [employer] WORK[employer] aware of critical troponin, EKG obtained per order. Levophed gtt infusing and titrated to maintain MAP > 65. R IJ TLC placed in ED. ETT #7.5, 22 cm at lip, on ACVC settings. NPO- OGT to LIWS; initially with bilious drainage but becoming brown/blood streaked, output approx 600 mL- B[employer]ING [employer] WORKER aware, SQ heparin held. No BM. Mcwilliams in place, UOP as charted. Electrolytes replaced per MAR. Skin overall intact- L hand wound, picture uploaded in chart. Repositioned in bed q2hr with pillows. Bed locked in lowest position, alarm on. See EMR/flowsheet for further details.
--- NOTE | 2025-02-22 07:00 | CA_ITS ---
Transthoracic Echocardiogram Patient (Last, First, Middle): Vincent Thompson, Gender: Male Date of : 1990 Age: 34 Procedure Date: 02/22/2025 Procedure Type: Transthoracic Echocardiogram Height: 177.8 cm Weight: 57.61 kg BSA: 1.72 m2 Heart Rate: bpm BP: 113 / 83 mmHg Conclusions: - Normal left ventricular cavity size. There is normal left ventricular wall thickness. The left ventricular systolic function is borderline reduced. The visually estimated ejection fraction is between 45-50%. - The apical lateral and mid inferolateral segments are akinetic. - Normal right ventricular cavity size and systolic function. Findings Left Ventricle Normal left ventricular cavity size. There is normal left ventricular wall thickness. The left ventricular systolic function is borderline reduced. The visually estimated ejection fraction is between 45-50%. There is evidence of regional wall motion abnormalities. Diastolic function is indeterminate on the basis of available data. Wall Motion Rest Echo Findings The apical lateral and mid inferolateral segments are akinetic. Right Ventricle Normal right ventricular cavity size and systolic function. Atria The left atrium is normal in size. The right atrium is normal in size. Aortic Valve There is a normal trileaflet aortic valve. There is no aortic valve stenosis. There is no aortic valve regurgitation. Mitral Valve The mitral valve appears normal. There is no mitral valve regurgitation. There is no mitral valve stenosis. Pulmonic Valve The pulmonic valve is likely normal. Tricuspid Valve Normal tricuspid valve structure. There is no tricuspid valve regurgitation. Tricuspid regurgitation envelope is inadequate for calculation of right ventricular systolic pressure. Indeterminate right atrial pressure. Great Vessels All visible segments of the aorta are normal in size. Venous The inferior vena cava is normal in size and does not collapse with inspiration. The patient is on ventilator. Pericardium/Pleural There is no evidence of pericardial effusion. Measurements 2D Linear Measurements IVSd: 0.77 0.6-0.9/0.6-1.0 cm LVIDd: 4.04 3.9-5.3/4.2-5.9 cm LVIDd Index: 2.35 2.4-3.2/2.2-3.1 cm/m2 LVIDs: 3.19 2.0-3.6 cm LVPWd: 0.86 0.7-1.1 cm Ao Root: 2.70 2.1-3.5 cm LA Diam: 2.20 2.7-3.8/3.0-4.0 cm LAIDs Index: 1.28 1.5-2.3 cm/m2 LV Mass: 121.20 67-162/88-224 g LV Mass Index: 70.46 43-95/49-115 g/m2 LVOT Diam: 2.00 3.0+(-)1.3 cm 2D Systolic Function EF 4C: 60.00 >55% EF 2C: 38.80 >55% EF BiP: 49.50 >55% Mitral Valve MV Pk E: 0.69 MV PK A: 0.61 MV Decel Time: 122.00 E/A: 1.10 E'Lateral: 10.10 E'Medial: 8.81 E/E' Med: 7.90 E/E' Lat: 6.90 PHT: 36.00 MVA PHT: 6.11 Decel [place]: 5.67 Aortic Valve AoV Pk [place]: 0.97 AoV Mn [place]: 0.64 AoV VTI: 0.14 AoV Pk Grad: 4.00 Aov Mn Grad: 2.00 ASHLY Cont.VTI: 2.04 LVOT LVOT Pk [place]: 0.64 LVOT Mn [place]: 0.43 LVOT VTI: 0.09 LVOT Pk Grad: 2.00 LVOT Mn Grad: 1.00 LVOT Diam: 2.00 LVOT Area: 3.14 Diastolic Function MV Pk E: 0.69 MV Pk A: 0.61 E/A: 1.10 E'Medial: 8.81 E/E' Med: 7.90 E' Laterial: 10.10 E/E' Lat: 6.90 Great Vessels Aorta Ao Root-2D: 2.70 2.0-3.7 cm Pulmonary Valve PV Pk [place]: 0.87 Peak PV Grad: 3.00 Updated in Other Vendor System with Status of Final Jesus Manuel Curran MD electronically signed on 02/24/2025 2:50:12 PM with status of Final
[2025-02-22] MEDS: 0.9 % Sodium Chloride Flush 3 ML SYRINGE IVFLUSH ×3 (07:28→22:44)
[2025-02-22] MEDS: Chlorhexidine Gluc Oral Rinse 15 ML MOUTHWASH BUCCAL ×3 (07:40→20:00)
--- NOTE | 2025-02-22 08:54 | PHA.MEDREC ---
Addendum entered by Kalie Johnson RPh 02/22/25 09:01: reviewed by [facility]. Original Note: Pharmacy Consult ? Medication Reconciliation Pharmacy has completed the medication reconciliation. Unable to speak with patient due to him being intubated. Called patient contact on file Kika [phone] and left a message. Utilized claims to confirm med list. Will update med rec if there are any changes to patient medications when contact calls back.
--- NOTE | 2025-02-22 09:45 | MHC.CM.PN ---
Pt intubated in ICU : + tox screen upon arrival. Call placed to contact number in EMR: pt's mother answered and stated pt's grandmother is seriously ill and unable to have a meaningful conversation. She states pt has been homeless since last May and family has minimal to no contact with him. Pt's mother requested to speak with ICU provider for an update. CM to follow for finalization of d/c planning needs
[2025-02-22] MEDS: Potassium Chloride/H20 40 MEQ/100 ML PIGGYBACK 100 MEQ IV ×2 (10:11→12:18)
--- NOTE | 2025-02-22 10:33 | PM.CNCAR ---
History of Present Illness History of Present Illness Date of Service: 02/22/25 Requesting physician: Victorino Woodward Chief complaint: Overdose, elevated troponin Narrative: 34-year-old who is currently sedated and ventilated and has background history of polysubstance abuse. Presented to the emergency department reportedly with overdose. He was found unresponsive in his vagal by police and was given Narcan. In the ER the patient was tachycardic, and febrile to 104 and was emergently intubated for airway protection. His high sensitivity troponin levels are elevated. He also has been noticed to have MRSA bacteremia. He has a wound on the left hand which is dressed. Currently sedated and ventilated and history is quite limited. EKGs does not have any ischemic changes. Urine tox screen is positive for cocaine and fentanyl. He has acute kidney injury with creatinine of 2.56 and BUN of 44. Elevated lactate levels. He is currently on 2 pressors. Echocardiography reviewed which is showing mid to distal inferolateral wall akinesis. Overall LV function is normal. No obvious valvular pathology noted on this echocardiogram. No obvious signs of endocarditis. [facility] Past Medical History Medical History Polysubstance abuse Social History Social History Household Members: Unknown / Unable to assess Housing: Unknown / Unable to assess Patient Tobacco Use Status: Tobacco use Unknown Use of substances other than those prescribed or required for medical reasons: Unable to respond Currently Displaying Signs/Symptoms of Drug Intoxication Withdrawal: No Advance Directives: No Advance Directives Information Provided: No Recently lost weight without trying: Unsure Poor oral hygiene: Yes Meds Allergies Allergy/AdvReac Type Severity Reaction Status Date / Time No Known Allergies Allergy Verified 02/21/25 19:27 Active Medications: Current Medications Chlorhexidine Gluconate (Chlorhexidine Gluc Oral Rinse 15 Ml Mouthwash) 15 ml BUCCAL TID [facility] Last Admin: 02/22/25 07:40 Dose: 15 ml Heparin Sodium (Porcine) (Heparin Sodium,Porcine 5,000 Unit/Ml Vial) 5,000 unit SUBCUT Q8H [facility] Last Admin: 02/22/25 04:42 Dose: Not Given Propofol (Diprivan) 1,000 mg in 100 mls @ 0 mls/hr IVCONT .Q0M [facility]; Protocol Last Admin: 02/22/25 05:55 Dose: 50 mcg/kg/min, 16.08 mls/hr Fentanyl (Sublimaze/Ns) 1,000 mcg in 100 mls @ 0 mls/hr IVCONT .Q0M [facility]; Protocol Last Admin: 02/22/25 05:56 Dose: 125 mcg/hr, 12.5 mls/hr Norepinephrine Bitartrate (Levophed) 8 mg in 250 mls @ 0 mls/hr IVCONT .Q0M [facility]; Protocol Last Titration: 02/22/25 08:57 Dose: 0.24 mcg/kg/min, 24.12 mls/hr Sodium Bicarbonate 150 meq/ (Dextrose) 1,000 mls @ 100 mls/hr IV .Q10H [facility] Last Admin: 02/22/25 10:15 Dose: 100 mls/hr Piperacillin Sod/Tazobactam (Sod 4.5 gm/ Sodium Chloride) 100 mls @ 200 mls/hr IV Q8H [facility] Last Infusion: 02/22/25 05:30 Dose: Infused Albumin Human (Kedbumin 25 %) 100 mls @ 100 mls/hr IV Q6H [facility] Stop: 02/22/25 23:59 Last Infusion: 02/22/25 07:27 Dose: Infused Vancomycin HCl 1,500 mg/ (Sodium Chloride) 500 mls @ 333.333 mls/hr IV Q24H [facility] Potassium Chloride (Potassium Chloride/H20) 40 meq in 100 mls @ 100 mls/hr IV Q1H [facility] Stop: 02/22/25 11:14 Last Admin: 02/22/25 10:11 Dose: 100 mls/hr Midazolam HCl (Midazolam Hcl 2 Mg/2 Ml Vial) 2 mg IVPUSH Q2H PRN PRN Reason: Ventilator synchrony Last Admin: 02/22/25 03:11 Dose: 2 mg Naloxone HCl (Naloxone Hcl 0.4 Mg/Ml Vial) 0.2 mg IVPUSH Q2M PRN PRN Reason: Excessive sedation or RR < 8 Pantoprazole Sodium (Pantoprazole Sodium 40 Mg/10 Ml Vial) 40 mg IVPUSH BID@0630,1630 [facility] Last Admin: 02/22/25 05:29 Dose: 40 mg Pharmacy Consult (Consult Rx Vancomycin Dosing) 1 each MISCELLANE DAILY PRN PRN Reason: Consult order Sodium Chloride (0.9 % Sodium Chloride Flush 3 Ml Syringe) 3 ml IVFLUSH QSHIFT [facility] Last Admin: 02/22/25 07:28 Dose: 3 ml Home Medications ?Medication ?Instructions ?Recorded ?Confirmed ?Last Taken ?Type buprenorphine 12 mg-naloxone 3 mg 1 film sublingual BID 02/22/25 02/22/25 Unknown History sublingual film (Suboxone) clonidine HCl 0.1 mg tablet 0.1 mg PO BID PRN anxiety 02/22/25 02/22/25 Unknown History Physical Exam Vital Signs: Vital Signs: Last Vital Signs Temp 97.5 F 02/22/25 10:00 Pulse 116 H 02/22/25 10:00 Resp 22 H 02/22/25 10:00 BP 115/86 02/22/25 10:00 Pulse Ox 99 02/22/25 10:00 O2 Del Method Mechanical Ventil ation 02/22/25 10:00 FiO2 21 02/22/25 10:00 BMI result Body Mass Index 18.3 GENERAL APPEARANCE: Sedated and ventilated. NECK: no carotid bruit, no jugular venous distention. SKIN: Left arm dressed. HEART: no murmurs, regular rate and rhythm. Tachycardic. LUNGS: clear to auscultation bilaterally. ABDOMEN: soft, nontender. EXTREMITIES: no edema. PERIPHERAL PULSES: equal. NEUROLOGIC: No gross deficits, AAO X 3 Objective Labs and Meds 02/22/25 04:08 02/22/25 04:08 Lab results: Laboratory Results - last 24 hr 02/21/25 02/21/25 02/21/25 19:48 20:00 20:04 WBC 21.8 H RBC 5.41 Hgb 17.4 Hct 48.5 MCV 89.6 MCH 32.2 MCHC 35.9 RDW 13.6 Plt Count 101 L MPV 11.1 Immature Gran % (Auto) 1.3 H Neut % (Auto) 79.4 H Lymph % (Auto) 12.9 L [place] % (Auto) 5.9 Eos % (Auto) 0.3 Baso % (Auto) 0.2 Lymph # (Auto) 2.8 [place] # (Auto) 1.3 H Eos # (Auto) 0.1 Baso # (Auto) 0.0 Abs Immat Gran (auto) 0.28 H Absolute Neuts (auto) 17.3 H Absolute Nucleated RBC 0.000 Nucleated RBC % (auto) 0.0 Smear Tech's Comments VERIFIED Hold Blue Top SEE NOTE VBG pH 7.31 L VBG pCO2 29 VBG pO2 36 VBG HCO3 15 L VBG O2 Saturation 47.0 VBG Base Excess -9.5 Sodium 137 Potassium 4.8 Chloride 102 Carbon Dioxide 14 L Anion Gap 26 H BUN 44 H Creatinine 2.56 H Estim Creat Clear Calc 30.5 Estimated GFR 29 Random Glucose 132 H Lactic Acid 10.2 H* Lactic Acid F/U @ 2Hr Calcium 10.0 Phosphorus Magnesium 2.2 Total Bilirubin 2.8 H AST 72 H ALT 25 Alkaline Phosphatase 83 Total Creatine Kinase 503 H Troponin I High Sens 1268.7 H* C-Reactive Protein 40.68 H B-Natriuretic Peptide Total Protein 9.5 H Albumin 4.1 Lipase 70 Urine Color Urine Appearance Urine pH Ur Specific [place] Urine Protein Urine Glucose (UA) Urine Ketones Urine Blood Urine Nitrite Ur Leukocyte Esterase Urine RBC Urine WBC Ur Squamous Epith Cells Urine Bacteria Hyaline Casts Granular Casts Salicylates < 5.0 L Urine Opiates Screen Ur Buprenorphine Scrn Ur Oxycodone Screen Urine Methadone Screen Urine Fentanyl Screen Acetaminophen < 3 Ur Barbiturates Screen Ur Phencyclidine Scrn Ur Amphetamines Screen U Benzodiazepines Scrn Urine Cocaine Screen U Marijuana (THC) Screen Ethyl Alcohol < 10 Influenza Type A (PCR) NEGATIVE Influenza Type B (PCR) NEGATIVE RSV RNA Qual (PCR) NEGATIVE SARS-CoV-2 RNA (RT-PCR) NEGATIVE 02/21/25 02/21/25 02/21/25 20:48 22:02 22:09 WBC RBC Hgb Hct MCV MCH MCHC RDW Plt Count MPV Immature Gran % (Auto) Neut % (Auto) Lymph % (Auto) [place] % (Auto) Eos % (Auto) Baso % (Auto) Lymph # (Auto) [place] # (Auto) Eos # (Auto) Baso # (Auto) Abs Immat Gran (auto) Absolute Neuts (auto) Absolute Nucleated RBC Nucleated RBC % (auto) Smear Tech's Comments Hold Blue Top VBG pH 7.31 L VBG pCO2 31 VBG pO2 75 VBG HCO3 16 L VBG O2 Saturation 92.0 VBG Base Excess -8.8 Sodium Potassium Chloride Carbon Dioxide Anion Gap BUN Creatinine Estim Creat Clear Calc Estimated GFR Random Glucose Lactic Acid Lactic Acid F/U @ 2Hr 1.1 Calcium Phosphorus Magnesium Total Bilirubin AST ALT Alkaline Phosphatase Total Creatine Kinase Troponin I High Sens C-Reactive Protein B-Natriuretic Peptide Total Protein Albumin Lipase Urine Color [place] A Urine Appearance Turbid Urine pH 5.0 Ur Specific [place] 1.025 Urine Protein 300 (3+) H Urine Glucose (UA) Negative Urine Ketones Negative Urine Blood Large (3+) H Urine Nitrite Positive H Ur Leukocyte Esterase Small (1+) H Urine RBC 6-10 H Urine WBC 11-20 Ur Squamous Epith Cells 11-20 Urine Bacteria 1+ Hyaline Casts 6-10 Granular Casts Present Salicylates Urine Opiates Screen Not Detected Ur Buprenorphine Scrn Not Detected Ur Oxycodone Screen Not Detected Urine Methadone Screen Not Detected Urine Fentanyl Screen POSITIVE H Acetaminophen Ur Barbiturates Screen Not Detected Ur Phencyclidine Scrn Not Detected Ur Amphetamines Screen Not Detected U Benzodiazepines Scrn Not Detected Urine Cocaine Screen POSITIVE H U Marijuana (THC) Screen Not Detected Ethyl Alcohol Influenza Type A (PCR) Influenza Type B (PCR) RSV RNA Qual (PCR) SARS-CoV-2 RNA (RT-PCR) 02/21/25 02/21/25 02/22/25 23:38 23:52 04:08 WBC 11.7 H RBC 4.11 L D Hgb 13.3 L D Hct 36.0 L D MCV 87.6 MCH 32.4 MCHC 36.9 H RDW 13.5 Plt Count 59 L D MPV 10.6 Immature Gran % (Auto) 0.7 H Neut % (Auto) 76.2 H Lymph % (Auto) 16.3 L [place] % (Auto) 6.6 Eos % (Auto) 0.0 Baso % (Auto) 0.2 Lymph # (Auto) 1.9 [place] # (Auto) 0.8 Eos # (Auto) 0.0 Baso # (Auto) 0.0 Abs Immat Gran (auto) 0.08 H Absolute Neuts (auto) 8.9 H Absolute Nucleated RBC 0.000 Nucleated RBC % (auto) 0.0 Smear Tech's Comments VERIFIED Hold Blue Top VBG pH 7.32 VBG pCO2 25 VBG pO2 38 VBG HCO3 13 L VBG O2 Saturation 60.0 VBG Base Excess -10.9 Sodium 137 Potassium 2.9 L* D Chloride 110 H Carbon Dioxide 18 L Anion Gap 12 BUN 39 H Creatinine 1.53 H Estim Creat Clear Calc 51.0 Estimated GFR 52 Random Glucose 118 H Lactic Acid Lactic Acid F/U @ 2Hr Calcium 7.3 L D Phosphorus Cancelled Magnesium Total Bilirubin AST ALT Alkaline Phosphatase Total Creatine Kinase Troponin I High Sens 1968.3 H* D C-Reactive Protein B-Natriuretic Peptide Total Protein Albumin Lipase Urine Color Urine Appearance Urine pH Ur Specific [place] Urine Protein Urine Glucose (UA) Urine Ketones Urine Blood Urine Nitrite Ur Leukocyte Esterase Urine RBC Urine WBC Ur Squamous Epith Cells Urine Bacteria Hyaline Casts Granular Casts Salicylates Urine Opiates Screen Ur Buprenorphine Scrn Ur Oxycodone Screen Urine Methadone Screen Urine Fentanyl Screen Acetaminophen Ur Barbiturates Screen Ur Phencyclidine Scrn Ur Amphetamines Screen U Benzodiazepines Scrn Urine Cocaine Screen U Marijuana (THC) Screen Ethyl Alcohol Influenza Type A (PCR) Influenza Type B (PCR) RSV RNA Qual (PCR) SARS-CoV-2 RNA (RT-PCR) 02/22/25 02/22/25 02/22/25 04:08 04:08 04:08 WBC RBC Hgb Hct MCV MCH MCHC RDW Plt Count MPV Immature Gran % (Auto) Neut % (Auto) Lymph % (Auto) [place] % (Auto) Eos % (Auto) Baso % (Auto) Lymph # (Auto) [place] # (Auto) Eos # (Auto) Baso # (Auto) Abs Immat Gran (auto) Absolute Neuts (auto) Absolute Nucleated RBC Nucleated RBC % (auto) Smear Tech's Comments Hold Blue Top VBG pH VBG pCO2 VBG pO2 VBG HCO3 VBG O2 Saturation VBG Base Excess Sodium Potassium Chloride Carbon Dioxide Anion Gap BUN Creatinine Estim Creat Clear Calc Estimated GFR Random Glucose Lactic Acid Lactic Acid F/U @ 2Hr Calcium Phosphorus 2.9 Magnesium Cancelled 1.8 Total Bilirubin 1.1 H AST 107 H ALT 23 Alkaline Phosphatase 56 Total Creatine Kinase Cancelled 2259 H Troponin I High Sens 2376.3 H* C-Reactive Protein B-Natriuretic Peptide 717 H Total Protein 6.3 L Albumin 2.7 L Lipase Urine Color Urine Appearance Urine pH Ur Specific [place] Urine Protein Urine Glucose (UA) Urine Ketones Urine Blood Urine Nitrite Ur Leukocyte Esterase Urine RBC Urine WBC Ur Squamous Epith Cells Urine Bacteria Hyaline Casts Granular Casts Salicylates Urine Opiates Screen Ur Buprenorphine Scrn Ur Oxycodone Screen Urine Methadone Screen Urine Fentanyl Screen Acetaminophen Ur Barbiturates Screen Ur Phencyclidine Scrn Ur Amphetamines Screen U Benzodiazepines Scrn Urine Cocaine Screen U Marijuana (THC) Screen Ethyl Alcohol Influenza Type A (PCR) Influenza Type B (PCR) RSV RNA Qual (PCR) SARS-CoV-2 RNA (RT-PCR) 02/22/25 04:20 WBC RBC Hgb Hct MCV MCH MCHC RDW Plt Count MPV Immature Gran % (Auto) Neut % (Auto) Lymph % (Auto) [place] % (Auto) Eos % (Auto) Baso % (Auto) Lymph # (Auto) [place] # (Auto) Eos # (Auto) Baso # (Auto) Abs Immat Gran (auto) Absolute Neuts (auto) Absolute Nucleated RBC Nucleated RBC % (auto) Smear Tech's Comments Hold Blue Top VBG pH 7.47 H VBG pCO2 26 VBG pO2 52 VBG HCO3 19 L VBG O2 Saturation 84.0 VBG Base Excess -2.5 Sodium Potassium Chloride Carbon Dioxide Anion Gap BUN Creatinine Estim Creat Clear Calc Estimated GFR Random Glucose Lactic Acid Lactic Acid F/U @ 2Hr Calcium Phosphorus Magnesium Total Bilirubin AST ALT Alkaline Phosphatase Total Creatine Kinase Troponin I High Sens C-Reactive Protein B-Natriuretic Peptide Total Protein Albumin Lipase Urine Color Urine Appearance Urine pH Ur Specific [place] Urine Protein Urine Glucose (UA) Urine Ketones Urine Blood Urine Nitrite Ur Leukocyte Esterase Urine RBC Urine WBC Ur Squamous Epith Cells Urine Bacteria Hyaline Casts Granular Casts Salicylates Urine Opiates Screen Ur Buprenorphine Scrn Ur Oxycodone Screen Urine Methadone Screen Urine Fentanyl Screen Acetaminophen Ur Barbiturates Screen Ur Phencyclidine Scrn Ur Amphetamines Screen U Benzodiazepines Scrn Urine Cocaine Screen U Marijuana (THC) Screen Ethyl Alcohol Influenza Type A (PCR) Influenza Type B (PCR) RSV RNA Qual (PCR) SARS-CoV-2 RNA (RT-PCR) Assessment and Plan (1) NSTEMI (non-ST elevated myocardial infarction): Status: Acute (2) Toxic encephalopathy: Status: Acute (3) MRSA bacteremia: Status: Acute Plan 34-year-old with history of polysubstance abuse who was brought in unresponsive and was intubated for airway protection. He has MRSA bacteremia. He has wound on the left arm. I have not seen in personally because it is dressed. He is on antibiotics. He is positive for cocaine and fentanyl. No obvious evidence of endocarditis on the echocardiogram. By exam also no obvious signs of endocarditis picked up by physical examination. His troponins are elevated. He also has wall motion abnormality on echocardiogram. This can be related to coronary spasm from cocaine. Would favor using heparin if he can tolerate it. He is septic with low platelet counts up to 59,000. Use heparin for now, if any concerns for bleeding or platelets dropping below 50,000 I think we have to be cautious and hold the heparin that case. Multiple issues going on currently. We will follow along with you. Thank you for allowing me to participate in the care of your patient. Please feel free to contact me if you have any questions. Procedures Date of Service Date of Service: 02/22/25
--- NOTE | 2025-02-22 11:04 | PM.CCPN ---
Subjective Subjective Date of Service: 02/22/25 Interval History: 34-year-old gentleman with underlying history of polysubstance abuse including opiates and cocaine admitted on 02/21/2025 after he was found unresponsive by police. On ER evaluation patient in respiratory distress requiring emergent intubation and ventilatory support. Also noted to have evidence of acute kidney injury with significant metabolic acidosis and rhabdomyolysis, NSTEMI, and undifferentiated shock. Patient empirically covered with broad-spectrum antibiotics and started on pressor support. Initial imaging with likely evidence of small-bowel obstruction, but essentially negative CT chest and CT head. Patient admitted to the intensive care unit. No events overnight. Blood cultures are positive for Staphylococcus, PCR is positive for MRSA. Critical Care Time (minutes): 60 Physical Exam Vital Signs: Vital Signs: Last Vital Signs Temp 97.5 F 02/22/25 10:00 Pulse 116 H 02/22/25 10:00 Resp 22 H 02/22/25 10:00 BP 115/86 02/22/25 10:00 Pulse Ox 99 02/22/25 10:00 O2 Del Method Mechanical Ventil ation 02/22/25 10:00 FiO2 21 02/22/25 10:00 BMI result Body Mass Index 18.3 Const: General: no acute distress and other (Sedated on ventilatory support) Eyes: Other: Pupils right pinpoint, left-sided 3 mm, very sluggish Sclerae: sclerae normal Neck: Neck: Yes no lymphadenopathy, Yes trachea midline and Yes supple Resp: Auscultation: clear to auscultation bilaterally Cardio: Rate: tachycardic Rhythm: regular rhythm Heart sounds: no gallops, no murmurs and no rubs GI: Palpation (GI): Soft to palpation and Other GI palpation findings present ( Nontender) Auscultation: normal bowel sounds Extrem: Other: Bilateral hand extensor surfaces with stigmata of skin popping General: Yes no pedal edema, No clubbing and No cyanosis Objective Data Labs 02/22/25 04:08 02/22/25 04:08 Labs: Laboratory Results - last 24 hr 02/21/25 02/21/25 02/21/25 19:48 20:00 20:04 WBC 21.8 H RBC 5.41 Hgb 17.4 Hct 48.5 MCV 89.6 MCH 32.2 MCHC 35.9 RDW 13.6 Plt Count 101 L MPV 11.1 Immature Gran % (Auto) 1.3 H Neut % (Auto) 79.4 H Lymph % (Auto) 12.9 L [place] % (Auto) 5.9 Eos % (Auto) 0.3 Baso % (Auto) 0.2 Lymph # (Auto) 2.8 [place] # (Auto) 1.3 H Eos # (Auto) 0.1 Baso # (Auto) 0.0 Abs Immat Gran (auto) 0.28 H Absolute Neuts (auto) 17.3 H Absolute Nucleated RBC 0.000 Nucleated RBC % (auto) 0.0 Smear Tech's Comments VERIFIED Hold Blue Top SEE NOTE VBG pH 7.31 L VBG pCO2 29 VBG pO2 36 VBG HCO3 15 L VBG O2 Saturation 47.0 VBG Base Excess -9.5 Sodium 137 Potassium 4.8 Chloride 102 Carbon Dioxide 14 L Anion Gap 26 H BUN 44 H Creatinine 2.56 H Estim Creat Clear Calc 30.5 Estimated GFR 29 Random Glucose 132 H Lactic Acid 10.2 H* Lactic Acid F/U @ 2Hr Calcium 10.0 Phosphorus Magnesium 2.2 Total Bilirubin 2.8 H AST 72 H ALT 25 Alkaline Phosphatase 83 Total Creatine Kinase 503 H Troponin I High Sens 1268.7 H* C-Reactive Protein 40.68 H B-Natriuretic Peptide Total Protein 9.5 H Albumin 4.1 Lipase 70 Urine Color Urine Appearance Urine pH Ur Specific [place] Urine Protein Urine Glucose (UA) Urine Ketones Urine Blood Urine Nitrite Ur Leukocyte Esterase Urine RBC Urine WBC Ur Squamous Epith Cells Urine Bacteria Hyaline Casts Granular Casts Salicylates < 5.0 L Urine Opiates Screen Ur Buprenorphine Scrn Ur Oxycodone Screen Urine Methadone Screen Urine Fentanyl Screen Acetaminophen < 3 Ur Barbiturates Screen Ur Phencyclidine Scrn Ur Amphetamines Screen U Benzodiazepines Scrn Urine Cocaine Screen U Marijuana (THC) Screen Ethyl Alcohol < 10 Influenza Type A (PCR) NEGATIVE Influenza Type B (PCR) NEGATIVE RSV RNA Qual (PCR) NEGATIVE SARS-CoV-2 RNA (RT-PCR) NEGATIVE 02/21/25 02/21/25 02/21/25 20:48 22:02 22:09 WBC RBC Hgb Hct MCV MCH MCHC RDW Plt Count MPV Immature Gran % (Auto) Neut % (Auto) Lymph % (Auto) [place] % (Auto) Eos % (Auto) Baso % (Auto) Lymph # (Auto) [place] # (Auto) Eos # (Auto) Baso # (Auto) Abs Immat Gran (auto) Absolute Neuts (auto) Absolute Nucleated RBC Nucleated RBC % (auto) Smear Tech's Comments Hold Blue Top VBG pH 7.31 L VBG pCO2 31 VBG pO2 75 VBG HCO3 16 L VBG O2 Saturation 92.0 VBG Base Excess -8.8 Sodium Potassium Chloride Carbon Dioxide Anion Gap BUN Creatinine Estim Creat Clear Calc Estimated GFR Random Glucose Lactic Acid Lactic Acid F/U @ 2Hr 1.1 Calcium Phosphorus Magnesium Total Bilirubin AST ALT Alkaline Phosphatase Total Creatine Kinase Troponin I High Sens C-Reactive Protein B-Natriuretic Peptide Total Protein Albumin Lipase Urine Color [place] A Urine Appearance Turbid Urine pH 5.0 Ur Specific [place] 1.025 Urine Protein 300 (3+) H Urine Glucose (UA) Negative Urine Ketones Negative Urine Blood Large (3+) H Urine Nitrite Positive H Ur Leukocyte Esterase Small (1+) H Urine RBC 6-10 H Urine WBC 11-20 Ur Squamous Epith Cells 11-20 Urine Bacteria 1+ Hyaline Casts 6-10 Granular Casts Present Salicylates Urine Opiates Screen Not Detected Ur Buprenorphine Scrn Not Detected Ur Oxycodone Screen Not Detected Urine Methadone Screen Not Detected Urine Fentanyl Screen POSITIVE H Acetaminophen Ur Barbiturates Screen Not Detected Ur Phencyclidine Scrn Not Detected Ur Amphetamines Screen Not Detected U Benzodiazepines Scrn Not Detected Urine Cocaine Screen POSITIVE H U Marijuana (THC) Screen Not Detected Ethyl Alcohol Influenza Type A (PCR) Influenza Type B (PCR) RSV RNA Qual (PCR) SARS-CoV-2 RNA (RT-PCR) 02/21/25 02/21/25 02/22/25 23:38 23:52 04:08 WBC 11.7 H RBC 4.11 L D Hgb 13.3 L D Hct 36.0 L D MCV 87.6 MCH 32.4 MCHC 36.9 H RDW 13.5 Plt Count 59 L D MPV 10.6 Immature Gran % (Auto) 0.7 H Neut % (Auto) 76.2 H Lymph % (Auto) 16.3 L [place] % (Auto) 6.6 Eos % (Auto) 0.0 Baso % (Auto) 0.2 Lymph # (Auto) 1.9 [place] # (Auto) 0.8 Eos # (Auto) 0.0 Baso # (Auto) 0.0 Abs Immat Gran (auto) 0.08 H Absolute Neuts (auto) 8.9 H Absolute Nucleated RBC 0.000 Nucleated RBC % (auto) 0.0 Smear Tech's Comments VERIFIED Hold Blue Top VBG pH 7.32 VBG pCO2 25 VBG pO2 38 VBG HCO3 13 L VBG O2 Saturation 60.0 VBG Base Excess -10.9 Sodium 137 Potassium 2.9 L* D Chloride 110 H Carbon Dioxide 18 L Anion Gap 12 BUN 39 H Creatinine 1.53 H Estim Creat Clear Calc 51.0 Estimated GFR 52 Random Glucose 118 H Lactic Acid Lactic Acid F/U @ 2Hr Calcium 7.3 L D Phosphorus Cancelled Magnesium Total Bilirubin AST ALT Alkaline Phosphatase Total Creatine Kinase Troponin I High Sens 1968.3 H* D C-Reactive Protein B-Natriuretic Peptide Total Protein Albumin Lipase Urine Color Urine Appearance Urine pH Ur Specific [place] Urine Protein Urine Glucose (UA) Urine Ketones Urine Blood Urine Nitrite Ur Leukocyte Esterase Urine RBC Urine WBC Ur Squamous Epith Cells Urine Bacteria Hyaline Casts Granular Casts Salicylates Urine Opiates Screen Ur Buprenorphine Scrn Ur Oxycodone Screen Urine Methadone Screen Urine Fentanyl Screen Acetaminophen Ur Barbiturates Screen Ur Phencyclidine Scrn Ur Amphetamines Screen U Benzodiazepines Scrn Urine Cocaine Screen U Marijuana (THC) Screen Ethyl Alcohol Influenza Type A (PCR) Influenza Type B (PCR) RSV RNA Qual (PCR) SARS-CoV-2 RNA (RT-PCR) 02/22/25 02/22/25 02/22/25 04:08 04:08 04:08 WBC RBC Hgb Hct MCV MCH MCHC RDW Plt Count MPV Immature Gran % (Auto) Neut % (Auto) Lymph % (Auto) [place] % (Auto) Eos % (Auto) Baso % (Auto) Lymph # (Auto) [place] # (Auto) Eos # (Auto) Baso # (Auto) Abs Immat Gran (auto) Absolute Neuts (auto) Absolute Nucleated RBC Nucleated RBC % (auto) Smear Tech's Comments Hold Blue Top VBG pH VBG pCO2 VBG pO2 VBG HCO3 VBG O2 Saturation VBG Base Excess Sodium Potassium Chloride Carbon Dioxide Anion Gap BUN Creatinine Estim Creat Clear Calc Estimated GFR Random Glucose Lactic Acid Lactic Acid F/U @ 2Hr Calcium Phosphorus 2.9 Magnesium Cancelled 1.8 Total Bilirubin 1.1 H AST 107 H ALT 23 Alkaline Phosphatase 56 Total Creatine Kinase Cancelled 2259 H Troponin I High Sens 2376.3 H* C-Reactive Protein B-Natriuretic Peptide 717 H Total Protein 6.3 L Albumin 2.7 L Lipase Urine Color Urine Appearance Urine pH Ur Specific [place] Urine Protein Urine Glucose (UA) Urine Ketones Urine Blood Urine Nitrite Ur Leukocyte Esterase Urine RBC Urine WBC Ur Squamous Epith Cells Urine Bacteria Hyaline Casts Granular Casts Salicylates Urine Opiates Screen Ur Buprenorphine Scrn Ur Oxycodone Screen Urine Methadone Screen Urine Fentanyl Screen Acetaminophen Ur Barbiturates Screen Ur Phencyclidine Scrn Ur Amphetamines Screen U Benzodiazepines Scrn Urine Cocaine Screen U Marijuana (THC) Screen Ethyl Alcohol Influenza Type A (PCR) Influenza Type B (PCR) RSV RNA Qual (PCR) SARS-CoV-2 RNA (RT-PCR) 02/22/25 04:20 WBC RBC Hgb Hct MCV MCH MCHC RDW Plt Count MPV Immature Gran % (Auto) Neut % (Auto) Lymph % (Auto) [place] % (Auto) Eos % (Auto) Baso % (Auto) Lymph # (Auto) [place] # (Auto) Eos # (Auto) Baso # (Auto) Abs Immat Gran (auto) Absolute Neuts (auto) Absolute Nucleated RBC Nucleated RBC % (auto) Smear Tech's Comments Hold Blue Top VBG pH 7.47 H VBG pCO2 26 VBG pO2 52 VBG HCO3 19 L VBG O2 Saturation 84.0 VBG Base Excess -2.5 Sodium Potassium Chloride Carbon Dioxide Anion Gap BUN Creatinine Estim Creat Clear Calc Estimated GFR Random Glucose Lactic Acid Lactic Acid F/U @ 2Hr Calcium Phosphorus Magnesium Total Bilirubin AST ALT Alkaline Phosphatase Total Creatine Kinase Troponin I High Sens C-Reactive Protein B-Natriuretic Peptide Total Protein Albumin Lipase Urine Color Urine Appearance Urine pH Ur Specific [place] Urine Protein Urine Glucose (UA) Urine Ketones Urine Blood Urine Nitrite Ur Leukocyte Esterase Urine RBC Urine WBC Ur Squamous Epith Cells Urine Bacteria Hyaline Casts Granular Casts Salicylates Urine Opiates Screen Ur Buprenorphine Scrn Ur Oxycodone Screen Urine Methadone Screen Urine Fentanyl Screen Acetaminophen Ur Barbiturates Screen Ur Phencyclidine Scrn Ur Amphetamines Screen U Benzodiazepines Scrn Urine Cocaine Screen U Marijuana (THC) Screen Ethyl Alcohol Influenza Type A (PCR) Influenza Type B (PCR) RSV RNA Qual (PCR) SARS-CoV-2 RNA (RT-PCR) Microbiology Microbiology Results: Microbiology 02/21/25 19:48 Blood - Venous Blood Culture - Preliminary Prelim: GPC Gram Stain only 02/21/25 19:48 Blood - Venous Blood Culture - Preliminary Prelim: GPC Gram Stain only Progress Note: A&P Assessment and plan (1) MRSA bacteremia: Status: Acute (2) ENRRIQUE (acute kidney injury): Status: Acute (3) Polysubstance abuse: Status: Acute (4) Acute respiratory failure: Status: Acute (5) Toxic encephalopathy: Status: Acute (6) NSTEMI (non-ST elevated myocardial infarction): Status: Acute (7) Small bowel obstruction: Status: Acute Plan Assessment: 34-year-old gentleman admitted with shock and staphylococcal bacteremia on a background of polysubstance abuse with likely cocaine induced vasospasm resulting in acute kidney injury and NSTEMI, also noted to have small-bowel obstruction Plan: Neuro: Toxic encephalopathy likely secondary to polysubstance abuse, may also have underlying cocaine induced vasospasm ischemia. Initial CT head with no acute findings. Cardiac: Shock, likely septic, may have cardiac component. Continue to titrate off pressors as tolerated. Cardiology service appreciated. 2D echocardiogram is pending. Pulmonary: Acute respiratory failure secondary to polysubstance abuse requiring ventilatory support, continue to titrate off as tolerated. Renal: Acute renal failure on background of polysubstance abuse and shock, likely secondary to ATN and rhabdomyolysis. Continue IV fluid support. Non oliguric. Continue to monitor renal indices and urine output. Endo: No acute issues. GI: CT abdomen with evidence of small-bowel obstruction. Surgery evaluation requested. Abdominal exam is benign. Continue with OG. ID: Staphylococcal bacteremia, likely MRSA. Continue empiric broad-spectrum antibiotics. Heme/Onc: No acute issues. Psych: No acute issues. Miscellaneous: No acute issues. Prophylaxis: Heparin, ppi Diet: NPO Critical care time spent: 60 minutes Quality Stroke Does the patient have a stroke diagnosis?: No VTE Prior VTE?: No VTE Risk Level:: Medical - moderate - high VTE Device Contraindication: N/A - Device Ordered VTE Drug Contraindication: N/A - Med Ordered
--- NOTE | 2025-02-22 11:20 | P.CONGS_ITS ---
History of Present Illness Consult details Consult date: 02/22/25 <Lacho Watt PA-C - Last Filed: 02/22/25 12:41> Reason for consult: other (SBO found on imaging) <Lacho Watt PA-C - Last Filed: 02/22/25 12:41> Requesting physician: Victorino Woodward <Lacho Watt PA-C - Last Filed: 02/22/25 12:41> Narrative: 34 year old male admitted to the ICU for management of septic shock secondary to fentanyl overdose seen in consult for SBO found on imaging. Patient is currently intubated and sedated. Patients mother and father were bedside during consult. Per EMR and family, patients medical history includes polysubstance use. patient has no history of abdominal surgery. Medications include suboxone and clonidine. Patient has not passed bowel movements. <Lacho Watt PA-C - Last Filed: 02/22/25 12:41> Review of Systems 2 Review of Systems: unobtainable due to intubation <Lacho Watt PA-C - Last Filed: 02/22/25 12:41> [facility] Past Medical History Medical History: Medical History Polysubstance abuse <Lacho Watt PA-C - Last Filed: 02/22/25 12:41> Social History Social History: Social History Household Members: Unknown / Unable to assess Housing: Unknown / Unable to assess Patient Tobacco Use Status: Tobacco use Unknown Use of substances other than those prescribed or required for medical reasons: Unable to respond Currently Displaying Signs/Symptoms of Drug Intoxication Withdrawal: No Advance Directives: No Advance Directives Information Provided: No Recently lost weight without trying: Unsure Poor oral hygiene: Yes <Lacho Watt PA-C - Last Filed: 02/22/25 12:41> Meds Allergies/Adverse reactions: Allergies Allergy/AdvReac Type Severity Reaction Status Date / Time No Known Allergies Allergy Verified 02/21/25 19:27 <Lacho Watt PA-C - Last Filed: 02/22/25 12:41> Active Medications: Current Medications Chlorhexidine Gluconate (Chlorhexidine Gluc Oral Rinse 15 Ml Mouthwash) 15 ml BUCCAL TID [facility] Last Admin: 02/22/25 07:40 Dose: 15 ml Heparin Sodium (Porcine) (Heparin Sodium,Porcine 5,000 Unit/Ml Vial) 5,000 unit SUBCUT Q8H [facility] Last Admin: 02/22/25 04:42 Dose: Not Given Propofol (Diprivan) 1,000 mg in 100 mls @ 0 mls/hr IVCONT .Q0M [facility]; Protocol Last Admin: 02/22/25 05:55 Dose: 50 mcg/kg/min, 16.08 mls/hr Fentanyl (Sublimaze/Ns) 1,000 mcg in 100 mls @ 0 mls/hr IVCONT .Q0M [facility]; Protocol Last Admin: 02/22/25 05:56 Dose: 125 mcg/hr, 12.5 mls/hr Norepinephrine Bitartrate (Levophed) 8 mg in 250 mls @ 0 mls/hr IVCONT .Q0M [facility]; Protocol Last Titration: 02/22/25 08:57 Dose: 0.24 mcg/kg/min, 24.12 mls/hr Sodium Bicarbonate 150 meq/ (Dextrose) 1,000 mls @ 100 mls/hr IV .Q10H [facility] Last Admin: 02/22/25 10:15 Dose: 100 mls/hr Piperacillin Sod/Tazobactam (Sod 4.5 gm/ Sodium Chloride) 100 mls @ 200 mls/hr IV Q8H [facility] Last Infusion: 02/22/25 05:30 Dose: Infused Albumin Human (Kedbumin 25 %) 100 mls @ 100 mls/hr IV Q6H [facility] Stop: 02/22/25 23:59 Last Infusion: 02/22/25 07:27 Dose: Infused Vancomycin HCl 1,500 mg/ (Sodium Chloride) 500 mls @ 333.333 mls/hr IV Q24H [facility] Midazolam HCl (Midazolam Hcl 2 Mg/2 Ml Vial) 2 mg IVPUSH Q2H PRN PRN Reason: Ventilator synchrony Last Admin: 02/22/25 03:11 Dose: 2 mg Naloxone HCl (Naloxone Hcl 0.4 Mg/Ml Vial) 0.2 mg IVPUSH Q2M PRN PRN Reason: Excessive sedation or RR < 8 Pantoprazole Sodium (Pantoprazole Sodium 40 Mg/10 Ml Vial) 40 mg IVPUSH BID@0630,1630 [facility] Last Admin: 02/22/25 05:29 Dose: 40 mg Pharmacy Consult (Consult Rx Vancomycin Dosing) 1 each MISCELLANE DAILY PRN PRN Reason: Consult order Sodium Chloride (0.9 % Sodium Chloride Flush 3 Ml Syringe) 3 ml IVFLUSH QSHIFT [facility] Last Admin: 02/22/25 07:28 Dose: 3 ml <Lacho Watt PA-C - Last Filed: 02/22/25 12:41> Home medications: Home Medications ?Medication ?Instructions ?Recorded ?Confirmed ?Last Taken ?Type buprenorphine 12 mg-naloxone 3 mg 1 film sublingual BID 02/22/25 02/22/25 Unknown History sublingual film (Suboxone) clonidine HCl 0.1 mg tablet 0.1 mg PO BID PRN anxiety 02/22/25 02/22/25 Unknown History <Lacho Watt PA-C - Last Filed: 02/22/25 12:41> Physical Exam 2 Vital Signs: Vital Signs: Last Vital Signs Temp 99.5 F 02/22/25 11:00 Pulse 115 H 02/22/25 11:00 Resp 22 H 02/22/25 11:00 BP 113/84 02/22/25 11:00 Pulse Ox 98 02/22/25 11:00 O2 Del Method Mechanical Ventil ation 02/22/25 11:00 FiO2 21 02/22/25 11:00 BMI result Body Mass Index 18.3 <Lacho Watt PA-C - Last Filed: 02/22/25 12:41> Const: Other: Patient is sedated, responding to pain stimulus <Lacho Watt PA-C - Last Filed: 02/22/25 12:41> General: No alert or awake <Lacho Watt PA-C - Last Filed: 02/22/25 12:41> Nutritional Appearance: thin <Lacho Watt PA-C - Last Filed: 02/22/25 12:41> GI: Other: OG tube present <MARVIN Mccabe Last Filed: 02/22/25 12:41> Inspection: Yes normal to inspection, No distended and No scar <MARVIN Mccabe Last Filed: 02/22/25 12:41> Palpation (GI): Soft to palpation, nontender, no guarding and not rigid < Lacho Wtat PA-C - Last Filed: 02/22/25 12:41> Percussion: Yes tympanic to percussion <MARVIN Mccabe Last Filed: 02/22/25 12:41> Auscultation: Absent bowel sounds (lower abdomen) and Hypoactive bowel sounds present (upper abdomen) <MARVIN Mccabe Last Filed: 02/22/25 12:41> Results Labs Result diagrams: 02/23/25 05:00 02/23/25 05:00 <Lacho Watt PA-C - Last Filed: 02/22/25 12:41> Labs: Abnormal lab results 02/21/25 02/21/25 02/21/25 Range/Units 19:48 20:00 20:04 WBC 21.8 H (4.8-10.8) X10*3/uL RBC (4.60-5.80) X10*6/uL Hgb (14.0-18.0) g/dl Hct (42.0-52.0) % MCHC (31.0-36.0) g/dl Plt Count 101 L (160-400) X10*3/uL Immature Gran % (Auto) 1.3 H (0.0-0.4) % Neut % (Auto) 79.4 H (45-73) % Lymph % (Auto) 12.9 L (20-40) % [place] # (Auto) 1.3 H (0.1-1.2) X10*3/uL Abs Immat Gran (auto) 0.28 H (0.00-0.03) X10*3/uL Absolute Neuts (auto) 17.3 H (2.0-8.3) x10*3/uL VBG pH 7.31 L (7.32-7.43) VBG HCO3 15 L (22-26) mmol/L Potassium (3.3-5.1) mmol/L Chloride (96-108) mmol/L Carbon Dioxide 14 L (22-29) mmol/L Anion Gap 26 H (12-20) BUN 44 H (9-16) mg/dL Creatinine 2.56 H (0.5-1.4) mg/dL Random Glucose 132 H (60-115) mg/dL Lactic Acid 10.2 H* (0.5-2.0) mmol/L Calcium (8.4-10.2) mg/dL Total Bilirubin 2.8 H (0.0-1.0) mg/dL AST 72 H (5-37) U/L Total Creatine Kinase 503 H (38-174) U/L Troponin I High Sens 1268.7 H* (<3.5-35.0) ng/L C-Reactive Protein 40.68 H (< or = 0.50) mg/dL B-Natriuretic Peptide (<100) pg/mL Total Protein 9.5 H (6.5-8.0) g/dL Albumin (3.5-5.0) g/dL Urine Color Urine Protein (Neg-Trace) mg/dL Urine Blood (Negative) Urine Nitrite (Negative) Ur Leukocyte Esterase (Negative) Urine RBC (0-2) /HPF Salicylates < 5.0 L (15-30) mg/dL Urine Fentanyl Screen (Not Detect) Urine Cocaine Screen (Not Detect) 02/21/25 02/21/25 02/21/25 Range/Units 20:48 22:09 23:38 WBC (4.8-10.8) X10*3/uL RBC (4.60-5.80) X10*6/uL Hgb (14.0-18.0) g/dl Hct (42.0-52.0) % MCHC (31.0-36.0) g/dl Plt Count (160-400) X10*3/uL Immature Gran % (Auto) (0.0-0.4) % Neut % (Auto) (45-73) % Lymph % (Auto) (20-40) % [place] # (Auto) (0.1-1.2) X10*3/uL Abs Immat Gran (auto) (0.00-0.03) X10*3/uL Absolute Neuts (auto) (2.0-8.3) x10*3/uL VBG pH 7.31 L (7.32-7.43) VBG HCO3 16 L (22-26) mmol/L Potassium (3.3-5.1) mmol/L Chloride (96-108) mmol/L Carbon Dioxide (22-29) mmol/L Anion Gap (12-20) BUN (9-16) mg/dL Creatinine (0.5-1.4) mg/dL Random Glucose (60-115) mg/dL Lactic Acid (0.5-2.0) mmol/L Calcium (8.4-10.2) mg/dL Total Bilirubin (0.0-1.0) mg/dL AST (5-37) U/L Total Creatine Kinase (38-174) U/L Troponin I High Sens 1968.3 H* D (<3.5-35.0) ng/L C-Reactive Protein (< or = 0.50) mg/dL B-Natriuretic Peptide (<100) pg/mL Total Protein (6.5-8.0) g/dL Albumin (3.5-5.0) g/dL Urine Color [place] A Urine Protein 300 (3+) H (Neg-Trace) mg/dL Urine Blood Large (3+) H (Negative) Urine Nitrite Positive H (Negative) Ur Leukocyte Esterase Small (1+) H (Negative) Urine RBC 6-10 H (0-2) /HPF Salicylates (15-30) mg/dL Urine Fentanyl Screen POSITIVE H (Not Detect) Urine Cocaine Screen POSITIVE H (Not Detect) 02/21/25 02/22/25 02/22/25 Range/Units 23:52 04:08 04:20 WBC 11.7 H (4.8-10.8) X10*3/uL RBC 4.11 L D (4.60-5.80) X10*6/uL Hgb 13.3 L D (14.0-18.0) g/dl Hct 36.0 L D (42.0-52.0) % MCHC 36.9 H (31.0-36.0) g/dl Plt Count 59 L D (160-400) X10*3/uL Immature Gran % (Auto) 0.7 H (0.0-0.4) % Neut % (Auto) 76.2 H (45-73) % Lymph % (Auto) 16.3 L (20-40) % [place] # (Auto) (0.1-1.2) X10*3/uL Abs Immat Gran (auto) 0.08 H (0.00-0.03) X10*3/uL Absolute Neuts (auto) 8.9 H (2.0-8.3) x10*3/uL VBG pH 7.47 H (7.32-7.43) VBG HCO3 13 L 19 L (22-26) mmol/L Potassium 2.9 L* D (3.3-5.1) mmol/L Chloride 110 H (96-108) mmol/L Carbon Dioxide 18 L (22-29) mmol/L Anion Gap (12-20) BUN 39 H (9-16) mg/dL Creatinine 1.53 H (0.5-1.4) mg/dL Random Glucose 118 H (60-115) mg/dL Lactic Acid (0.5-2.0) mmol/L Calcium 7.3 L D (8.4-10.2) mg/dL Total Bilirubin 1.1 H (0.0-1.0) mg/dL AST 107 H (5-37) U/L Total Creatine Kinase 2259 H (38-174) U/L Troponin I High Sens 2376.3 H* (<3.5-35.0) ng/L C-Reactive Protein (< or = 0.50) mg/dL B-Natriuretic Peptide 717 H (<100) pg/mL Total Protein 6.3 L (6.5-8.0) g/dL Albumin 2.7 L (3.5-5.0) g/dL Urine Color Urine Protein (Neg-Trace) mg/dL Urine Blood (Negative) Urine Nitrite (Negative) Ur Leukocyte Esterase (Negative) Urine RBC (0-2) /HPF Salicylates (15-30) mg/dL Urine Fentanyl Screen (Not Detect) Urine Cocaine Screen (Not Detect) Short CBC 02/21/25 02/22/25 Range/Units 19:48 04:08 WBC 21.8 H 11.7 H (4.8-10.8) X10*3/uL Hgb 17.4 13.3 L D (14.0-18.0) g/dl Hct 48.5 36.0 L D (42.0-52.0) % Plt Count 101 L 59 L D (160-400) X10*3/uL BMP 02/21/25 02/22/25 19:48 04:08 Sodium 137 137 Potassium 4.8 2.9 L* D Chloride 102 110 H Carbon Dioxide 14 L 18 L BUN 44 H 39 H Creatinine 2.56 H 1.53 H Calcium 10.0 7.3 L D Cardiac Enzymes 02/21/25 02/22/25 02/22/25 Range/Units 19:48 04:08 04:08 Total Creatine Kinase 503 H Cancelled 2259 H (38-174) U/L Liver Function 02/21/25 02/22/25 Range/Units 19:48 04:08 Total Bilirubin 2.8 H 1.1 H (0.0-1.0) mg/dL AST 72 H 107 H (5-37) U/L ALT 25 23 (0-40) U/L Alkaline Phosphatase 83 56 (39-117) U/L Albumin 4.1 2.7 L (3.5-5.0) g/dL Urine 02/21/25 Range/Units 20:48 Urine Color [place] A Urine Appearance Turbid Urine pH 5.0 (5.0-9.0) Ur Specific [place] 1.025 (1.005-1.025) Urine Protein 300 (3+) H (Neg-Trace) mg/dL Urine Glucose (UA) Negative (Negative) mg/dL All other labs normal. <Lacho Watt PA-C - Last Filed: 02/22/25 12:41> Assessment and Plan (1) Small bowel obstruction: Status: Acute <Lacho Watt PA-C - Last Filed: 02/22/25 12:41> admitted for drug overdose - fentanyl; has a history of polysubstance abuse with ENRRIQUE clinically septic - likely from hand cellulitis CAT scan of the abdomen reviewed - mild dilatation of the small bowel but no obvious transition point Abdomen is soft and benign, not distended NG tube in place with minimal output Unlikely to have significant small-bowel obstruction Continue current care Keep NG tube in for now while intubated We will follow <Bernardo Conrad MD - Last Filed: 02/22/25 18:44> 34 year old male admitted to the ICU for management of septic shock and fentanyl overdose seen in consult for SBO found on imaging. CT shows mild small bowel dilation and diffuse large bowel collitis. Patient is currently intubated and sedated. OG tube is currently in place, draining 350 mL since insertion. Abdominal exam is reassuring at this point. Abdomen is nondistended, unable to assess tenderness, patient did not respond to palpation. At this point we will proceed with conservative non operative management. Continue with OG management We will continue to follow patient. <Lacho Watt PA-C - Last Filed: 02/22/25 12:41> Total time managing care of this patient today: 32 minutes. <Lacho Watt PA-C - Last Filed: 02/22/25 12:41> Procedures Date of Service Date of Service: 02/22/25 <Lacho Watt PA-C - Last Filed: 02/22/25 12:41> 02/22/25 <Bernardo Conrad MD - Last Filed: 02/22/25 18:44> 02/24/25 <Fang Christina NP - Last Filed: 02/24/25 05:53>
--- NOTE | 2025-02-22 11:37 | MHC.CLN ---
CONSULT PT IS MODERATELY MALNOURISHED-QUALIFIES FOR NON-SEVERE MALNUTRITION IN THE CONTEXT OF SOCIAL/BEHAVIORAL/ENVIRONMENTAL PT WITH MILDLY DEPLETED SUBCUTANEOUS FAT AND MUSCLE MASS WITH BMI 18.3 PT IS INTUBATED AND SEDATED CURRENTLY NPO DISCUSSED AT ROUNDS WITH MD PT WITH OGT TO SUCTION R/T SBO IF ALTERNATIVE NUTRITION (TPN/PPN) NEEDED PLEASE CONSULT RD FOLLOWING WITH TEAM FOR DIET ADVANCEMENT
[2025-02-22] MEDS: Piperacillin Sodium/Tazobactam 3.375 GM in 0.9 % Sodium Chloride 50 ML IV ×2 (12:22→18:04)
[2025-02-22] MEDS: Heparin Sodium,Porcine/1/2NS 25,000 UNIT/250 ML IV.SOLN 8.11 UNIT IVCONT (14:32)
[2025-02-22 14:56] LABS: Hematocrit 32.2 % (42.0-52.0); Hemoglobin 11.6 g/dl (14.0-18.0); Mean Corpuscular Hemoglobin 32.1 pg (27.0-33.0); Mean Corpuscular Volume 89.2 fL (80.0-98.0); Mean Platelet Volume 11.3 fL (9.4-12.4); Platelet Count 46 X10*3/uL (160-400); Red Blood Count 3.61 X10*6/uL (4.60-5.80); Red Cell Distribution Width 13.7 % (11.0-16.0); White Blood Count 9.3 X10*3/uL (4.8-10.8)
[2025-02-22 14:59] LABS: INTERNATIONAL NORM RATIO 1.4 (0.9-1.1); Prothrombin Time 16.9 SEC (10.9-12.4)
[2025-02-22 15:02] LABS: PTT Heparin Drip 38.1 SEC (53-77.9)
[2025-02-22 15:31] LABS: SLIDE REVIEW MANUAL DIFF
[2025-02-22 15:32] LABS: Band Neutrophils Percent 28 % (3-5); Basophils Abs Manual 0.1 X10*3/uL (0.0-0.2); Basophils Percent Manual 1 % (0-2); Lymphocytes Absolute Manual 1.4 X10*3/uL (1.2-4.9); Lymphocytes Percent Manual 15 % (20-40); Monocytes Absolute Manual 0.2 X10*3/uL (0.1-1.2); Monocytes Percent Manual 2 % (2-11); Neutrophils Absolute Manual 7.6 X10*3/uL (2.0-8.3); Neutrophils Percent Manual 54 % (45-73)
[2025-02-22 15:33] LABS: RBC Morphology NOTED
[2025-02-22 15:34] LABS: Burr Cells 3+ (>5) /OIF
[2025-02-22 15:35] LABS: Dohle Bodies PRESENT
[2025-02-22 15:36] LABS: Platelet Estimate DECREASED (NORMAL); Platelet Morphology Comment NORMAL
[2025-02-22] MEDS: Norepinephrine Bitartrate/D5W 8 MG/250 ML PLAST..BAG 20.1 MG IVCONT (16:22)
--- NOTE | 2025-02-22 18:22 | PC.NURSE ---
Assumed care at 0700. Pt intubated, on levophed and sedative drips. Mri Technician spoke with pt?s mother, Justin. Mother states that pt?s primary contact, pt?s grandmother, has dementia and is unable to communicate effectively. Catrachita Hazel?s contact info entered into chart. Per MD, heparin drip started at approx 1400. Pt?s temperature noted to be rising throughout the day. Ice packs applied. See MAR and assessments for details. Pt repositioned q2hr. Bed locked and in lowest position. Alarm on.
[2025-02-22 18:41] LABS: Anion Gap 12 (12-20); Blood Urea Nitrogen 21 mg/dL (9-16); Calcium 8.2 mg/dL (8.4-10.2); Carbon Dioxide 26 mmol/L (22-29); Chloride 108 mmol/L (96-108); Creatinine Clr Calc Pharmacy 78.1; Estimated Glomerular Filt Rate > 60; Glucose Random 120 mg/dL (60-115); Potassium 3.4 mmol/L (3.3-5.1); Sodium 143 mmol/L (135-145)
[2025-02-22] MEDS: fentaNYL citrate/NS 1,000 MCG/100 ML PLAST..BAG 15 MCG IVCONT (19:14)
[2025-02-22 19:20] LABS: MANUAL DIFF FLAG NO
[2025-02-22 19:23] LABS: Basophils Percent Auto 0.3 % (0-2); Hematocrit 30.3 % (42.0-52.0); Hemoglobin 10.9 g/dl (14.0-18.0); Imm Gran Abs Auto 0.04 X10*3/uL (0.00-0.03); Imm Gran Pct Auto 0.5 % (0.0-0.4); Lymphocytes Absolute Auto 1.3 X10*3/uL (1.2-4.9); Lymphocytes Percent Auto 16.9 % (20-40); Mean Corpuscular Hemoglobin 32.2 pg (27.0-33.0); Mean Corpuscular Volume 89.4 fL (80.0-98.0); Mean Platelet Volume 10.8 fL (9.4-12.4); Monocytes Absolute Auto 0.4 X10*3/uL (0.1-1.2); Monocytes Percent Auto 5.5 % (2-11); Neutrophils Percent Auto 76.8 % (45-73); Red Blood Count 3.39 X10*6/uL (4.60-5.80); Red Cell Distribution Width 13.7 % (11.0-16.0); White Blood Count 7.8 X10*3/uL (4.8-10.8)
[2025-02-22 19:42] LABS: Platelet Count 42 X10*3/uL (160-400)
[2025-02-22] MEDS: Lactated Ringers 1,000 ML 150 ML IVCONT (19:58)
[2025-02-22] MEDS: vancomycin HCL 1,500 MG in 0.9 % Sodium Chloride 500 ML 333.33 MG IV (20:24)
[2025-02-22 20:50] LABS: PTT Heparin Drip 46.9 SEC (53-77.9)
[2025-02-22] MEDS: Heparin Sodium,Porcine 5,000 UNIT/ML VIAL 2300 UNIT IVPUSH (21:14)
[2025-02-23] VITALS (42 sets, daily range): BP systolic 80–131; BP diastolic 51–96; PULSE 80–117; RESP 17–47; TEMP 34.3–39.5; O2SAT 92–99; BMI 20.1
[2025-02-23] MEDS: propofoL 1,000 MG/100 ML VIAL 16.08 MG IVCONT ×2 (00:02→04:37)
[2025-02-23] MEDS: Piperacillin Sodium/Tazobactam 3.375 GM in 0.9 % Sodium Chloride 50 ML IV ×4 (00:11→18:06)
[2025-02-23] MEDS: Midazolam HCl 2 MG/2 ML VIAL IVPUSH ×4 (01:15→23:45)
[2025-02-23] MEDS: fentaNYL citrate/NS 1,000 MCG/100 ML PLAST..BAG 15 MCG IVCONT (01:34)
[2025-02-23] MEDS: Acetaminophen 1,000 MG/100 ML PIGGYBACK 400 MG IV ×2 (01:56→23:40)
[2025-02-23] MEDS: Lactated Ringers 1,000 ML 150 ML IVCONT ×2 (02:19→08:39)
[2025-02-23 03:50] LABS: PTT Heparin Drip 57.6 SEC (53-77.9)
[2025-02-23] MEDS: Norepinephrine Bitartrate/D5W 8 MG/250 ML PLAST..BAG 16.08 MG IVCONT (05:04)
[2025-02-23] MEDS: Pantoprazole Sodium 40 MG/10 ML VIAL IVPUSH ×2 (05:11→16:25)
[2025-02-23 05:13] LABS: VBG Base Excess 2.7 mmol/L; VBG HCO3 24 mmol/L (22-26); VBG pCO2 27 mmHg; VBG pH 7.56 (7.32-7.43); VBG pO2 37 mmHg
[2025-02-23 05:28] LABS: MANUAL DIFF FLAG NO
[2025-02-23 05:32] LABS: Basophils Percent Auto 0.4 % (0-2); Eosinophils Percent Auto 0.1 % (0-4); Hematocrit 28.6 % (42.0-52.0); Hemoglobin 10.3 g/dl (14.0-18.0); Imm Gran Abs Auto 0.06 X10*3/uL (0.00-0.03); Imm Gran Pct Auto 0.9 % (0.0-0.4); Lymphocytes Absolute Auto 1.1 X10*3/uL (1.2-4.9); Lymphocytes Percent Auto 16.7 % (20-40); Mean Corpuscular Hemoglobin 33.1 pg (27.0-33.0); Mean Platelet Volume 11.4 fL (9.4-12.4); Monocytes Absolute Auto 0.4 X10*3/uL (0.1-1.2); Monocytes Percent Auto 6.5 % (2-11); Neutrophils Absolute Auto 5.1 x10*3/uL (2.0-8.3); Neutrophils Percent Auto 75.4 % (45-73); Platelet Count 35 X10*3/uL (160-400); Red Blood Count 3.11 X10*6/uL (4.60-5.80); White Blood Count 6.8 X10*3/uL (4.8-10.8)
[2025-02-23 05:43] LABS: INTERNATIONAL NORM RATIO 1.2 (0.9-1.1); Prothrombin Time 13.8 SEC (10.9-12.4)
[2025-02-23 05:50] LABS: Alanine Aminotransferase 25 U/L (0-40); Albumin Level 3.4 g/dL (3.5-5.0); Anion Gap 14 (12-20); Aspartate Amino Transferase 123 U/L (5-37); Bilirubin Total 2.8 mg/dL (0.0-1.0); Blood Urea Nitrogen 15 mg/dL (9-16); Calcium 8.2 mg/dL (8.4-10.2); Carbon Dioxide 22 mmol/L (22-29); Chloride 109 mmol/L (96-108); Creatinine Clr Calc Pharmacy 108.9; Estimated Glomerular Filt Rate > 60; Glucose Random 96 mg/dL (60-115); Magnesium 2.1 mg/dL (1.6-2.6); Phosphorus 1.7 mg/dL (2.7-4.5); Potassium 3.6 mmol/L (3.3-5.1); Sodium 141 mmol/L (135-145)
[2025-02-23 05:57] LABS: Alkaline Phosphatase 42 U/L (39-117)
[2025-02-23 06:07] LABS: Venous Blood Gas Refer to POC result
[2025-02-23] MEDS: 0.9 % Sodium Chloride Flush 3 ML SYRINGE IVFLUSH ×3 (07:24→23:08)
[2025-02-23] MEDS: fentaNYL citrate/NS 1,000 MCG/100 ML PLAST..BAG 17.5 MCG IVCONT (07:25)
[2025-02-23] MEDS: Chlorhexidine Gluc Oral Rinse 15 ML MOUTHWASH BUCCAL (07:45)
--- NOTE | 2025-02-23 07:47 | PM.PNGS ---
Subjective Subjective Date of Service: 02/23/25 <Lacho Watt PA-C - Last Filed: 02/23/25 07:54> 02/23/25 <Bernardo Conrad MD - Last Filed: 02/23/25 08:45> Patient reports: no bowel movement <Lacho Watt PA-C - Last Filed: 02/23/25 07:54> Interval history: Patient remains intubated and sedated, responding to painful stimuli. per nursing, no BM. OG tube 300 cc yesterday, 0 cc overnight <Lacho Watt PA-C - Last Filed: 02/23/25 07:54> Physical Exam Vital Signs: Vital Signs: Last Vital Signs Temp 100.4 F 02/23/25 07:00 Pulse 104 H 02/23/25 07:00 Resp 20 02/23/25 07:00 BP 97/69 02/23/25 07:00 Pulse Ox 94 02/23/25 07:28 O2 Del Method Mechanical Ventil ation 02/23/25 07:00 FiO2 21 02/23/25 07:33 BMI result Body Mass Index 20.1 <Lacho Watt PA-C - Last Filed: 02/23/25 07:54> Const: Other: Intubated, sedated <Lacho Watt PA-C - Last Filed: 02/23/25 07:54> GI: Other: OG tube present <Lacho Watt PA-C - Last Filed: 02/23/25 07:54> Inspection: Yes distended (mild distention) <Lacho Watt PA-C - Last Filed: 02/23/25 07:54> Palpation (GI): Soft to palpation, Tenderness to palpation present (GI) (RUQ tender to palpation) and not rigid <Lacho Watt PA-C - Last Filed: 02/23/25 07:54> Objective Data Active Medications Chlorhexidine Gluconate (Chlorhexidine Gluc Oral Rinse 15 Ml Mouthwash) 15 ml BUCCAL TID [facility] Last Admin: 02/23/25 07:45 Dose: 15 ml Documented By: RUDY Heparin Sodium (Porcine) (Heparin Sodium,Porcine 5,000 Unit/Ml Vial) 2,300 unit 40 unit/kg (2300 unit) IVPUSH PROTOCOL BOLUS PRN; Protocol PRN Reason: 40 unit/kg - Heparin Protocol Last Admin: 02/22/25 21:14 Dose: 2,300 unit Documented By: LEVI Heparin Sodium (Porcine) (Heparin Sodium,Porcine 5,000 Unit/Ml Vial) 4,600 unit 80 unit/kg (4600 unit) IVPUSH PROTOCOL BOLUS PRN; Protocol PRN Reason: 80 unit/kg - Heparin Protocol Propofol (Diprivan) 1,000 mg in 100 mls @ 0 mls/hr IVCONT .Q0M [facility]; Protocol Last Admin: 02/23/25 04:37 Dose: 50 mcg/kg/min, 16.08 mls/hr Documented By: LEVI Fentanyl (Sublimaze/Ns) 1,000 mcg in 100 mls @ 0 mls/hr IVCONT .Q0M [facility]; Protocol Last Admin: 02/23/25 07:25 Dose: 175 mcg/hr, 17.5 mls/hr Documented By: RUDY Norepinephrine Bitartrate (Levophed) 8 mg in 250 mls @ 0 mls/hr IVCONT .Q0M [facility]; Protocol Last Titration: 02/23/25 05:15 Dose: 0.14 mcg/kg/min, 14.07 mls/hr Documented By: LEVI Vancomycin HCl 1,500 mg/ (Sodium Chloride) 500 mls @ 333.333 mls/hr IV Q24H [facility] Last Infusion: 02/22/25 21:57 Dose: Infused Documented By: LEVI Piperacillin Sod/Tazobactam (Sod 3.375 gm/ Sodium Chloride) 50 mls @ 100 mls/hr IV Q6H [facility] Last Infusion: 02/23/25 06:40 Dose: Infused Documented By: LEVI Heparin Sodium/Sodium Chloride (Heparin Sodium,Porcine/1/2ns) 25,000 unit in 250 mls @ 0 mls/hr IVCONT .Q0M [facility]; Protocol Last Titration: 02/23/25 06:18 Dose: 0 units/kg/hr, 0 mls/hr Documented By: LEVI Co-signed By: ADNIEL Lactated Ringer's (Lr) 1,000 mls @ 150 mls/hr IVCONT .Q6H40M [facility] Last Admin: 02/23/25 02:19 Dose: 150 mls/hr Documented By: LEVI Midazolam HCl (Midazolam Hcl 2 Mg/2 Ml Vial) 2 mg IVPUSH Q2H PRN PRN Reason: Ventilator synchrony Last Admin: 02/23/25 07:44 Dose: 2 mg Documented By: RUDY Multi-Ingred Cream/Lotion/Oil/Oint (Artificial Tears Ophth Oint 3.5 Gm Tube) 1 appl EYE-BOTH TID PRN; Protocol PRN Reason: Dry Eyes Naloxone HCl (Naloxone Hcl 0.4 Mg/Ml Vial) 0.2 mg IVPUSH Q2M PRN PRN Reason: Excessive sedation or RR < 8 Pantoprazole Sodium (Pantoprazole Sodium 40 Mg/10 Ml Vial) 40 mg IVPUSH BID@0630,1630 [facility] Last Admin: 02/23/25 05:11 Dose: 40 mg Documented By: LEVI Pharmacy Consult (Consult Rx Vancomycin Dosing) 1 each MISCELLANE DAILY PRN PRN Reason: Consult order Sodium Chloride (0.9 % Sodium Chloride Flush 3 Ml Syringe) 3 ml IVFLUSH QSHIFT [facility] Last Admin: 02/23/25 07:24 Dose: 3 ml Documented By: RUDY <Lacho Watt PA-C - Last Filed: 02/23/25 07:54> Labs CBC & Chem 7: 02/23/25 05:00 02/23/25 05:00 <Lacho Watt PA-C - Last Filed: 02/23/25 07:54> Labs: Laboratory Results - last 24 hr 02/22/25 02/22/25 02/22/25 14:44 18:10 19:16 MCV 89.2 89.4 MCH 32.1 32.2 MCHC 36.0 36.0 RDW 13.7 13.7 Plt Count 46 L 42 L MPV 11.3 10.8 Immature Gran % (Auto) Cancelled 0.5 H Neut % (Auto) Cancelled 76.8 H Lymph % (Auto) Cancelled 16.9 L [place] % (Auto) Cancelled 5.5 Eos % (Auto) Cancelled 0.0 Baso % (Auto) Cancelled 0.3 Lymph # (Auto) Cancelled 1.3 [place] # (Auto) Cancelled 0.4 Eos # (Auto) Cancelled 0.0 Baso # (Auto) Cancelled 0.0 Abs Immat Gran (auto) Cancelled 0.04 H Absolute Neuts (auto) Cancelled 6.0 Absolute Nucleated RBC 0.000 0.000 Nucleated RBC % (auto) 0.0 0.0 Neutrophils % (Manual) 54 Band Neutrophils % 28 H Lymphocytes % (Manual) 15 L Monocytes % (Manual) 2 Basophils % (Manual) 1 Abs Neuts (Manual) 7.6 Lymphocytes # (Manual) 1.4 Monocytes # (Manual) 0.2 Basophils # (Manual) 0.1 Dohle Bodies PRESENT Platelet Estimate DECREASED Plt Morphology Comment NORMAL RBC Morphology NOTED [place] Cells 3+ (>5) Smear Tech's Comments MANUAL DIFF PT 16.9 H INR 1.4 H aPTT Heparin Protocol 38.1 L VBG pH VBG pCO2 VBG pO2 VBG HCO3 VBG O2 Saturation VBG Base Excess Anion Gap 12 Estim Creat Clear Calc 78.1 Estimated GFR > 60 Random Glucose 120 H Calcium 8.2 L D Phosphorus Magnesium Total Bilirubin AST ALT Alkaline Phosphatase Total Creatine Kinase 2246 H Total Protein Albumin 02/22/25 02/23/25 02/23/25 20:32 03:31 05:00 MCV 92.0 MCH 33.1 H MCHC 36.0 RDW 14.0 Plt Count 35 L MPV 11.4 Immature Gran % (Auto) 0.9 H Neut % (Auto) 75.4 H Lymph % (Auto) 16.7 L [place] % (Auto) 6.5 Eos % (Auto) 0.1 Baso % (Auto) 0.4 Lymph # (Auto) 1.1 L [place] # (Auto) 0.4 Eos # (Auto) 0.0 Baso # (Auto) 0.0 Abs Immat Gran (auto) 0.06 H Absolute Neuts (auto) 5.1 Absolute Nucleated RBC 0.000 Nucleated RBC % (auto) 0.0 Neutrophils % (Manual) Band Neutrophils % Lymphocytes % (Manual) Monocytes % (Manual) Basophils % (Manual) Abs Neuts (Manual) Lymphocytes # (Manual) Monocytes # (Manual) Basophils # (Manual) Dohle Bodies Platelet Estimate Plt Morphology Comment RBC Morphology [place] Cells Smear Tech's Comments PT 13.8 H INR 1.2 H aPTT Heparin Protocol 46.9 L D 57.6 D VBG pH VBG pCO2 VBG pO2 VBG HCO3 VBG O2 Saturation VBG Base Excess Anion Gap 14 Estim Creat Clear Calc 108.9 Estimated GFR > 60 Random Glucose 96 Calcium 8.2 L Phosphorus 1.7 L Magnesium 2.1 Total Bilirubin 2.8 H AST 123 H ALT 25 Alkaline Phosphatase 42 Total Creatine Kinase 1628 H Total Protein 6.0 L Albumin 3.4 L 02/23/25 05:10 MCV MCH MCHC RDW Plt Count MPV Immature Gran % (Auto) Neut % (Auto) Lymph % (Auto) [place] % (Auto) Eos % (Auto) Baso % (Auto) Lymph # (Auto) [place] # (Auto) Eos # (Auto) Baso # (Auto) Abs Immat Gran (auto) Absolute Neuts (auto) Absolute Nucleated RBC Nucleated RBC % (auto) Neutrophils % (Manual) Band Neutrophils % Lymphocytes % (Manual) Monocytes % (Manual) Basophils % (Manual) Abs Neuts (Manual) Lymphocytes # (Manual) Monocytes # (Manual) Basophils # (Manual) Dohle Bodies Platelet Estimate Plt Morphology Comment RBC Morphology [place] Cells Smear Tech's Comments PT INR aPTT Heparin Protocol VBG pH 7.56 H VBG pCO2 27 VBG pO2 37 VBG HCO3 24 VBG O2 Saturation 69.0 VBG Base Excess 2.7 Anion Gap Estim Creat Clear Calc Estimated GFR Random Glucose Calcium Phosphorus Magnesium Total Bilirubin AST ALT Alkaline Phosphatase Total Creatine Kinase Total Protein Albumin <Lacho Watt PA-C - Last Filed: 02/23/25 07:54> Microbiology Microbiology Results: Microbiology 02/21/25 21:17 Urine Culture - Preliminary Urine clean catch - Clean Catch Midstream No growth to date. 02/21/25 19:48 Blood Culture - Preliminary Blood - Venous Prelim: GPC Gram Stain only 02/21/25 19:48 Blood Culture - Preliminary Blood - Venous Prelim: GPC Gram Stain only <Lacho Watt PA-C - Last Filed: 02/23/25 07:54> Procedures Date of Service Date of Service: 02/23/25 <Lacho Watt PA-C - Last Filed: 02/23/25 07:54> 02/23/25 <Bernardo Conrad MD - Last Filed: 02/23/25 08:45> Progress Note: A&P Assessment and plan (1) Small bowel obstruction: Status: Acute <Lacho Watt PA-C - Last Filed: 02/23/25 07:54> Assessment and Plan: As per ICU staff, no significant changes Continues to have temperature spikes OG tube output low Abdomen is soft, not significantly distended, no apparent tenderness, no guarding, no rebound Skin breakdown in the left hand from IVDA noted, no fluctuant areas, no obvious abscess Clinically not obstructed; CAT scan images underwhelming Positive blood cultures show Gram-positive bacteria, likely from skin If extubated, okay to DC OG-tube if output remains low Discussed with nursing staff Seen and examined independently <Bernardo Conrad MD - Last Filed: 02/23/25 08:45> Assessment and Plan: 34-year-old male admitted to ICU for septic shock and fentanyl overdose. Surgery following for SBO. Patient remains sedated and intubated. OG tube present, 0 cc drainage overnight. patient has mild distention and was responding to pain to palpation in the RLQ. Has not passed bowel movement. Continue with OG management Will continue to follow <Lacho Watt PA-C - Last Filed: 02/23/25 07:54> Time Spent With Patient Time: Total time managing care of this patient today ____ minutes. <Lacho Watt PA-C - Last Filed: 02/23/25 07:54> Quality Stroke Does the patient have a stroke diagnosis?: No <Lacho Watt PA-C - Last Filed: 02/23/25 07:54> VTE Prior VTE?: No <Lacho Watt PA-C - Last Filed: 02/23/25 07:54> VTE Risk Level:: Medical - moderate - high <Lacho Watt PA-C - Last Filed: 02/23/25 07:54> VTE Device Contraindication: N/A - Device Ordered <Lacho Watt PA-C - Last Filed: 02/23/25 07:54> VTE Drug Contraindication: N/A - Med Ordered <Lacho Watt PA-C - Last Filed: 02/23/25 07:54>
--- NOTE | 2025-02-23 10:43 | P.PNCC_ITS ---
Subjective Subjective Date of Service: 02/23/25 Interval History: 34-year-old gentleman with underlying history of polysubstance abuse including opiates and cocaine admitted on 02/21/2025 after he was found unresponsive by police. On ER evaluation patient in respiratory distress requiring emergent intubation and ventilatory support. Also noted to have evidence of acute kidney injury with significant metabolic acidosis and rhabdomyolysis, NSTEMI, and undifferentiated shock. Patient empirically covered with broad-spectrum antibiotics and started on pressor support. Initial imaging with likely evidence of small-bowel obstruction, but essentially negative CT chest and CT head. Patient admitted to the intensive care unit. With evidence of wall motion abnormalities, patient started on heparin drip, but had to be held secondary to worsening thrombocytopenia. Extubated uneventfully this a.m.. No events overnight. Critical Care Time (minutes): 60 Physical Exam 2 Vital Signs: Vital Signs: Last Vital Signs Temp 100.8 F H 02/23/25 10:00 Pulse 111 H 02/23/25 10:00 Resp 30 H 02/23/25 10:00 BP 108/78 02/23/25 10:00 Pulse Ox 97 02/23/25 10:00 O2 Del Method Nasal Cannula 02/23/25 10:00 O2 Flow Rate 0.5 02/23/25 10:00 FiO2 21 02/23/25 09:00 BMI result Body Mass Index 20.1 Const: General: no acute distress and lethargic (Arousable and follows commands) Orientation/consciousness: lethargic (Arousable and follows commands) Eyes: Sclerae: sclerae normal EOM: EOMs intact bilaterally Neck: Neck: Yes no lymphadenopathy, Yes trachea midline and Yes supple Resp: Effort & Inspection: normal respiratory effort and no respiratory distress Auscultation: clear to auscultation bilaterally Cardio: Rate: tachycardic Rhythm: regular rhythm Heart sounds: no gallops, no murmurs and no rubs GI: Palpation (GI): Soft to palpation and Other GI palpation findings present ( Nontender) Auscultation: normal bowel sounds Extrem: General: Yes no pedal edema, No clubbing and No cyanosis Objective Data Labs 02/23/25 05:00 02/23/25 05:00 Labs: Laboratory Results - last 24 hr 02/22/25 02/22/25 02/22/25 14:44 18:10 19:16 WBC 9.3 7.8 RBC 3.61 L 3.39 L Hgb 11.6 L 10.9 L Hct 32.2 L 30.3 L MCV 89.2 89.4 MCH 32.1 32.2 MCHC 36.0 36.0 RDW 13.7 13.7 Plt Count 46 L 42 L MPV 11.3 10.8 Immature Gran % (Auto) Cancelled 0.5 H Neut % (Auto) Cancelled 76.8 H Lymph % (Auto) Cancelled 16.9 L [place] % (Auto) Cancelled 5.5 Eos % (Auto) Cancelled 0.0 Baso % (Auto) Cancelled 0.3 Lymph # (Auto) Cancelled 1.3 [place] # (Auto) Cancelled 0.4 Eos # (Auto) Cancelled 0.0 Baso # (Auto) Cancelled 0.0 Abs Immat Gran (auto) Cancelled 0.04 H Absolute Neuts (auto) Cancelled 6.0 Absolute Nucleated RBC 0.000 0.000 Nucleated RBC % (auto) 0.0 0.0 Neutrophils % (Manual) 54 Band Neutrophils % 28 H Lymphocytes % (Manual) 15 L Monocytes % (Manual) 2 Basophils % (Manual) 1 Abs Neuts (Manual) 7.6 Lymphocytes # (Manual) 1.4 Monocytes # (Manual) 0.2 Basophils # (Manual) 0.1 Dohle Bodies PRESENT Platelet Estimate DECREASED Plt Morphology Comment NORMAL RBC Morphology NOTED [place] Cells 3+ (>5) Smear Tech's Comments MANUAL DIFF PT 16.9 H INR 1.4 H aPTT Heparin Protocol 38.1 L VBG pH VBG pCO2 VBG pO2 VBG HCO3 VBG O2 Saturation VBG Base Excess Sodium 143 Potassium 3.4 Chloride 108 Carbon Dioxide 26 Anion Gap 12 BUN 21 H Creatinine 1.08 Estim Creat Clear Calc 78.1 Estimated GFR > 60 Random Glucose 120 H Calcium 8.2 L D Phosphorus Magnesium Total Bilirubin AST ALT Alkaline Phosphatase Total Creatine Kinase 2246 H Total Protein Albumin 02/22/25 02/23/25 02/23/25 20:32 03:31 05:00 WBC 6.8 RBC 3.11 L Hgb 10.3 L Hct 28.6 L MCV 92.0 MCH 33.1 H MCHC 36.0 RDW 14.0 Plt Count 35 L MPV 11.4 Immature Gran % (Auto) 0.9 H Neut % (Auto) 75.4 H Lymph % (Auto) 16.7 L [place] % (Auto) 6.5 Eos % (Auto) 0.1 Baso % (Auto) 0.4 Lymph # (Auto) 1.1 L [place] # (Auto) 0.4 Eos # (Auto) 0.0 Baso # (Auto) 0.0 Abs Immat Gran (auto) 0.06 H Absolute Neuts (auto) 5.1 Absolute Nucleated RBC 0.000 Nucleated RBC % (auto) 0.0 Neutrophils % (Manual) Band Neutrophils % Lymphocytes % (Manual) Monocytes % (Manual) Basophils % (Manual) Abs Neuts (Manual) Lymphocytes # (Manual) Monocytes # (Manual) Basophils # (Manual) Dohle Bodies Platelet Estimate Plt Morphology Comment RBC Morphology [place] Cells Smear Tech's Comments PT 13.8 H INR 1.2 H aPTT Heparin Protocol 46.9 L D 57.6 D VBG pH VBG pCO2 VBG pO2 VBG HCO3 VBG O2 Saturation VBG Base Excess Sodium 141 Potassium 3.6 Chloride 109 H Carbon Dioxide 22 Anion Gap 14 BUN 15 Creatinine 0.85 Estim Creat Clear Calc 108.9 Estimated GFR > 60 Random Glucose 96 Calcium 8.2 L Phosphorus 1.7 L Magnesium 2.1 Total Bilirubin 2.8 H AST 123 H ALT 25 Alkaline Phosphatase 42 Total Creatine Kinase 1628 H Total Protein 6.0 L Albumin 3.4 L 02/23/25 05:10 WBC RBC Hgb Hct MCV MCH MCHC RDW Plt Count MPV Immature Gran % (Auto) Neut % (Auto) Lymph % (Auto) Walker % (Auto) Eos % (Auto) Baso % (Auto) Lymph # (Auto) [place] # (Auto) Eos # (Auto) Baso # (Auto) Abs Immat Gran (auto) Absolute Neuts (auto) Absolute Nucleated RBC Nucleated RBC % (auto) Neutrophils % (Manual) Band Neutrophils % Lymphocytes % (Manual) Monocytes % (Manual) Basophils % (Manual) Abs Neuts (Manual) Lymphocytes # (Manual) Monocytes # (Manual) Basophils # (Manual) Dohle Bodies Platelet Estimate Plt Morphology Comment RBC Morphology [place] Cells Smear Tech's Comments PT INR aPTT Heparin Protocol VBG pH 7.56 H VBG pCO2 27 VBG pO2 37 VBG HCO3 24 VBG O2 Saturation 69.0 VBG Base Excess 2.7 Sodium Potassium Chloride Carbon Dioxide Anion Gap BUN Creatinine Estim Creat Clear Calc Estimated GFR Random Glucose Calcium Phosphorus Magnesium Total Bilirubin AST ALT Alkaline Phosphatase Total Creatine Kinase Total Protein Albumin Microbiology Microbiology Results: Microbiology 02/21/25 19:48 Blood - Venous Blood Culture - Preliminary Staphylococcus aureus 02/21/25 19:48 Blood - Venous Blood Culture - Preliminary Staphylococcus aureus 02/21/25 21:17 Urine clean catch - Clean Catch Midstream Urine Culture - Preliminary No growth to date. Progress Note: A&P Assessment and plan (1) Polysubstance abuse: Status: Acute (2) NSTEMI (non-ST elevated myocardial infarction): Status: Acute (3) Small bowel obstruction: Status: Acute (4) ENRRIQUE (acute kidney injury): Status: Acute (5) MRSA bacteremia: Status: Acute (6) Toxic encephalopathy: Status: Acute Plan Assessment: 34-year-old gentleman admitted with shock and staphylococcal bacteremia on a background of polysubstance abuse with likely cocaine induced vasospasm resulting in acute kidney injury and NSTEMI, also noted to have small- bowel obstruction Plan: Neuro: Toxic encephalopathy likely secondary to polysubstance abuse, may also have underlying cocaine induced vasospasm ischemia. Initial CT head with no acute findings. Cardiac: Shock, likely septic, may have cardiac component. Continue to titrate off pressors as tolerated. Cardiology service appreciated. 2D echocardiogram with wall motion abnormalities, started on heparin drip, however had to hold it secondary to worsening thrombocytopenia. Pulmonary: Acute respiratory failure secondary to polysubstance abuse requiring ventilatory support, improved, extubated uneventfully this a.m.. Renal: Acute renal failure on background of polysubstance abuse and shock, likely secondary to ATN and rhabdomyolysis, improving. Continue IV fluid support. Non oliguric. Continue to monitor renal indices and urine output. Endo: No acute issues. GI: CT abdomen with evidence of small-bowel obstruction. General surgery service care appreciated. Abdominal exam is benign. ID: Staphylococcal bacteremia, likely MRSA. Continue empiric broad-spectrum antibiotics. Heme/Onc: No acute issues. Psych: No acute issues. Miscellaneous: No acute issues. Prophylaxis: Heparin, ppi Diet: NPO Critical care time spent: 60 minutes Quality Stroke Does the patient have a stroke diagnosis?: No VTE Prior VTE?: No VTE Risk Level:: Medical - moderate - high VTE Device Contraindication: N/A - Device Ordered VTE Drug Contraindication: N/A - Med Ordered
--- NOTE | 2025-02-23 10:56 | MHC.CLN ---
F/U PT IS MODERATELY MALNOURISHED-QUALIFIES FOR NON-SEVERE MALNUTRITION IN THE CONTEXT OF SOCIAL/BEHAVIORAL/ENVIRONMENTAL SEE FULL CLINICAL NUTRITION ASSESSMENT DATED 02/22/25 DISCUSSED AT ROUNDS WITH MD PT EXTUBATED TODAY DAY 2 NPO PT WITH OGT TO SUCTION R/T SBO IF ALTERNATIVE NUTRITION (TPN/PPN) NEEDED PLEASE CONSULT RD FOLLOWING WITH TEAM FOR DIET ADVANCEMENT
[2025-02-23] MEDS: Potassium Phosphate/NS 15 MMOL/250 ML PLAST..BAG 62.5 MMOL IV ×2 (11:18→15:28)
[2025-02-23] MEDS: Albumin Human 25 % 100 ML IV ×3 (11:18→23:07)
[2025-02-23] MEDS: dexmedeTOMIDine HCL/NS 400 MCG/100 ML PLAST..BAG 15.88 MCG IVCONT (12:02)
--- NOTE | 2025-02-23 13:12 | MHC.CM.PN ---
Pt extubated but remains in ICU for continued care. Blood cx + for Staph. D/C plan ongoing and not finalized. Pt will need to see the CARE team once medically cleared. CM to follow
--- NOTE | 2025-02-23 13:47 | P.PNCA_ITS ---
Subjective Subjective Date of Service: 02/23/25 Interval history: Seen and examined at bedside. He is post extubation. Denying any symptoms. Continues to spike high fevers. Physical Exam Vital Signs: Last Vital Signs Temp 102.4 F H 02/23/25 13:00 Pulse 80 02/23/25 13:00 Resp 20 02/23/25 13:00 BP 98/68 02/23/25 13:00 Pulse Ox 97 02/23/25 13:00 O2 Del Method Room Air 02/23/25 13:00 O2 Flow Rate 0.5 02/23/25 10:00 FiO2 21 02/23/25 09:00 BMI result Body Mass Index 20.1 GENERAL APPEARANCE: Extubated, in no acute distress. NECK: no carotid bruit, no jugular venous distention. SKIN: Left hand wound assessed. No obvious abscess. HEART: no murmurs, regular rate and rhythm. Tachycardic. LUNGS: clear to auscultation bilaterally. ABDOMEN: soft, nontender. EXTREMITIES: no edema. PERIPHERAL PULSES: equal. NEUROLOGIC: No gross deficits, AAO X 3 Objective Labs and Meds 02/23/25 05:00 02/23/25 05:00 Lab results: Laboratory Results - last 24 hr 02/22/25 02/22/25 02/22/25 14:44 18:10 19:16 WBC 9.3 7.8 RBC 3.61 L 3.39 L Hgb 11.6 L 10.9 L Hct 32.2 L 30.3 L MCV 89.2 89.4 MCH 32.1 32.2 MCHC 36.0 36.0 RDW 13.7 13.7 Plt Count 46 L 42 L MPV 11.3 10.8 Immature Gran % (Auto) Cancelled 0.5 H Neut % (Auto) Cancelled 76.8 H Lymph % (Auto) Cancelled 16.9 L [place] % (Auto) Cancelled 5.5 Eos % (Auto) Cancelled 0.0 Baso % (Auto) Cancelled 0.3 Lymph # (Auto) Cancelled 1.3 [place] # (Auto) Cancelled 0.4 Eos # (Auto) Cancelled 0.0 Baso # (Auto) Cancelled 0.0 Abs Immat Gran (auto) Cancelled 0.04 H Absolute Neuts (auto) Cancelled 6.0 Absolute Nucleated RBC 0.000 0.000 Nucleated RBC % (auto) 0.0 0.0 Neutrophils % (Manual) 54 Band Neutrophils % 28 H Lymphocytes % (Manual) 15 L Monocytes % (Manual) 2 Basophils % (Manual) 1 Abs Neuts (Manual) 7.6 Lymphocytes # (Manual) 1.4 Monocytes # (Manual) 0.2 Basophils # (Manual) 0.1 Dohle Bodies PRESENT Platelet Estimate DECREASED Plt Morphology Comment NORMAL RBC Morphology NOTED [place] Cells 3+ (>5) Smear Tech's Comments MANUAL DIFF PT 16.9 H INR 1.4 H aPTT Heparin Protocol 38.1 L VBG pH VBG pCO2 VBG pO2 VBG HCO3 VBG O2 Saturation VBG Base Excess Sodium 143 Potassium 3.4 Chloride 108 Carbon Dioxide 26 Anion Gap 12 BUN 21 H Creatinine 1.08 Estim Creat Clear Calc 78.1 Estimated GFR > 60 Random Glucose 120 H Calcium 8.2 L D Phosphorus Magnesium Total Bilirubin AST ALT Alkaline Phosphatase Total Creatine Kinase 2246 H Total Protein Albumin 02/22/25 02/23/25 02/23/25 20:32 03:31 05:00 WBC 6.8 RBC 3.11 L Hgb 10.3 L Hct 28.6 L MCV 92.0 MCH 33.1 H MCHC 36.0 RDW 14.0 Plt Count 35 L MPV 11.4 Immature Gran % (Auto) 0.9 H Neut % (Auto) 75.4 H Lymph % (Auto) 16.7 L [place] % (Auto) 6.5 Eos % (Auto) 0.1 Baso % (Auto) 0.4 Lymph # (Auto) 1.1 L [place] # (Auto) 0.4 Eos # (Auto) 0.0 Baso # (Auto) 0.0 Abs Immat Gran (auto) 0.06 H Absolute Neuts (auto) 5.1 Absolute Nucleated RBC 0.000 Nucleated RBC % (auto) 0.0 Neutrophils % (Manual) Band Neutrophils % Lymphocytes % (Manual) Monocytes % (Manual) Basophils % (Manual) Abs Neuts (Manual) Lymphocytes # (Manual) Monocytes # (Manual) Basophils # (Manual) Dohle Bodies Platelet Estimate Plt Morphology Comment RBC Morphology [place] Cells Smear Tech's Comments PT 13.8 H INR 1.2 H aPTT Heparin Protocol 46.9 L D 57.6 D VBG pH VBG pCO2 VBG pO2 VBG HCO3 VBG O2 Saturation VBG Base Excess Sodium 141 Potassium 3.6 Chloride 109 H Carbon Dioxide 22 Anion Gap 14 BUN 15 Creatinine 0.85 Estim Creat Clear Calc 108.9 Estimated GFR > 60 Random Glucose 96 Calcium 8.2 L Phosphorus 1.7 L Magnesium 2.1 Total Bilirubin 2.8 H AST 123 H ALT 25 Alkaline Phosphatase 42 Total Creatine Kinase 1628 H Total Protein 6.0 L Albumin 3.4 L 02/23/25 05:10 WBC RBC Hgb Hct MCV MCH MCHC RDW Plt Count MPV Immature Gran % (Auto) Neut % (Auto) Lymph % (Auto) [place] % (Auto) Eos % (Auto) Baso % (Auto) Lymph # (Auto) [place] # (Auto) Eos # (Auto) Baso # (Auto) Abs Immat Gran (auto) Absolute Neuts (auto) Absolute Nucleated RBC Nucleated RBC % (auto) Neutrophils % (Manual) Band Neutrophils % Lymphocytes % (Manual) Monocytes % (Manual) Basophils % (Manual) Abs Neuts (Manual) Lymphocytes # (Manual) Monocytes # (Manual) Basophils # (Manual) Dohle Bodies Platelet Estimate Plt Morphology Comment RBC Morphology [place] Cells Smear Tech's Comments PT INR aPTT Heparin Protocol VBG pH 7.56 H VBG pCO2 27 VBG pO2 37 VBG HCO3 24 VBG O2 Saturation 69.0 VBG Base Excess 2.7 Sodium Potassium Chloride Carbon Dioxide Anion Gap BUN Creatinine Estim Creat Clear Calc Estimated GFR Random Glucose Calcium Phosphorus Magnesium Total Bilirubin AST ALT Alkaline Phosphatase Total Creatine Kinase Total Protein Albumin Progress Note: A&P Assessment and plan (1) NSTEMI (non-ST elevated myocardial infarction): Status: Acute (2) MRSA bacteremia: Status: Acute Plan 34-year-old who presented with overdose and was intubated for airway protection. He is status post extubation at this point. He was using IV cocaine and had NSTEMI. Difficult to say whether this was related to coronary spasm or true plaque rupture or type 2 related to sepsis as he has been bacteremic with MRSA and has been vomiting high fevers. His high sensitive troponin levels were 503, 2259, 2246 and 1628. There is clear rise and fall of troponins. He also has low platelet count secondary to sepsis with platelet count 35,000 currently. I think it is challenging to use any anticoagulation in him in this situation. He is denying any chest discomfort or any unstable symptoms currently. As he improves we can do further ischemic workup. Currently care will be supportive. He continues to be febrile. His transthoracic echocardiogram did not show any evidence of vegetation but if he continues to be bacteremic and no source is found then he may need MICHELLE. As platelets start improving I think he should be started on baby aspirin. We will follow along with you. Thank you for allowing me to participate in the care of your patient. Please feel free to contact me if you have any questions. Time Spent With Patient Time: Total time managing care of this patient today ____ minutes. Progress Note: Quality Stroke Does the patient have a stroke diagnosis?: No Procedures Date of Service Date of Service: 02/23/25
[2025-02-23] MEDS: Buprenorphine/Naloxone 12/3 mg FILM 1 FILM SUBLINGUAL ×2 (14:12→23:03)
[2025-02-23] MEDS: Acetaminophen Oral Liquid 650 MG/20.3 ML SOLUTION PO ×2 (14:12→19:40)
[2025-02-23] MEDS: dexmedeTOMIDine HCL/NS 400 MCG/100 ML PLAST..BAG 22.23 MCG IVCONT (16:25)
--- NOTE | 2025-02-23 17:52 | PC.NURSE ---
Assumed care at 0700. Pt intubated, on levophed and sedative drips. Sedation vacation started at 0915. Pt following commands at approx 0930. Placed on PSV of 5/5 at approx 0938. Per MD, pt extubated at 0945. Suction provided, placed on 0.5L o2 in order to monitor end tidal co2. Pt states ?I?m really confused,? which this comic writer can verify. Pt restless; camera placed in room. Precedex drip started for agitation. Pt able to pass bedside swallow MD autumn notified, diet added. Pt temp radha to 103 degrees, oral tylenol given to some positive effect. Sitter in room for patient safety and protection of lines. Health status discussed with family. For further details, see assessments and MAR. Pt repositioned q2hr or as tolerated. Once extubated, pt repositioned self. Bed locked and in low position. Alarms on.
[2025-02-23 19:22] LABS: Vancomycin Random 6.2 mcg/mL (15-20)
--- NOTE | 2025-02-23 19:28 | HE.PHANOTE ---
Re: [place] Significant improvement in renal function. Trough returned at 6.2, current therapy is sub-therapeutic. Dose changed to 750mg q8h with predicted AUC 481, predicted trough 14.3. Next trough to be drawn 02/24 @ 1900.
[2025-02-23] MEDS: dexmedeTOMIDine HCL/NS 400 MCG/100 ML PLAST..BAG 23.81 MCG IVCONT (20:46)
[2025-02-23] MEDS: vancomycin HCL 750 MG in 0.9 % Sodium Chloride 250 ML 265 MG IV (20:48)
[2025-02-23] MEDS: fentaNYL citrate/PF 100 MCG/2 ML VIAL 50 MCG IVPUSH (21:20)
[2025-02-23] MEDS: Norepinephrine Bitartrate/D5W 8 MG/250 ML PLAST..BAG 14.07 MG IVCONT (23:10)
[2025-02-24] VITALS (31 sets, daily range): BP systolic 90–139; BP diastolic 60–93; PULSE 74–106; RESP 25–51; TEMP 36.3–39.3; O2SAT 89–95; BMI 19.3
[2025-02-24] MEDS: dexmedeTOMIDine HCL/NS 400 MCG/100 ML PLAST..BAG 23.81 MCG IVCONT ×2 (00:50→05:19)
[2025-02-24] MEDS: Piperacillin Sodium/Tazobactam 3.375 GM in 0.9 % Sodium Chloride 50 ML IV ×4 (00:52→17:53)
[2025-02-24] MEDS: Albumin Human 25 % 100 ML IV (04:59)
[2025-02-24] MEDS: vancomycin HCL 750 MG in 0.9 % Sodium Chloride 250 ML 265 MG IV ×2 (05:01→13:25)
[2025-02-24] MEDS: Midazolam HCl 2 MG/2 ML VIAL IVPUSH ×4 (05:05→22:17)
[2025-02-24] MEDS: Pantoprazole Sodium 40 MG/10 ML VIAL IVPUSH ×2 (05:05→17:01)
[2025-02-24 05:11] LABS: VBG Base Excess -0.2 mmol/L; VBG HCO3 21 mmol/L (22-26); VBG pCO2 24 mmHg; VBG pH 7.54 (7.32-7.43); VBG pO2 34 mmHg
--- NOTE | 2025-02-24 05:26 | P.EN_ITS ---
Event Note Date of Service: 02/24/25 Event Note: 55-year-old female With a past medical history of severe asthma/COPD overlap syndrome (2-3 L02 at baseline) recurrently exacerbated by cocaine use, severe obstructive sleep apnea with obesity hypoventilation controlled on nocturnal BiPAP,? congestive heart failure (LVEF 40-45%), hypertension, hyperlipidemia, GERD and Morales?s esophagus who presented to the emergency department? via EMS with dyspnea.?? ?Patient had recent admission 02/15/25 to 02/17/25? for COPD exacerbation and? Congestive heart failure exacerbation with new echo showing LVEF of 40-45% she was started on Lasix. According to EMS patient has had increased shortness of breath since yesterday, ? been using nebulizing treatment multiple times without much relief. The patient also admitted using cocaine earlier today. ?On arrival to emergency department patient?s severe respiratory distress re quiring BiPAP? support initially,? but? later patient was agitated? hypoxic unable to keep BiPAP? requiring emergent intubation.? ?Acute decompensation is related to acute respiratory failure secondary to? cocaine abuse requiring ventilatory support ? Unfortunately there is no ICU bed at this time, recommend:? Vent settings: change to higher RR, to 22 , Repeat VBG after 1 hour of changes? ?Diuresing with Lasix ?continue Keep 02 sat 88-92% Continue antibiotics Tox screen? Vent bundle:? head of the bed 30 degrees,? chlorhexidine TID, ppi prophylaxis, DVT prophylaxis Time Spent With Patient Time: Total time managing care of this patient today ____ minutes.
[2025-02-24 05:48] LABS: MANUAL DIFF FLAG NO
[2025-02-24] MEDS: Ketorolac Tromethamine 15 MG/ML VIAL 30 MG IVPUSH (05:48)
[2025-02-24 05:57] LABS: Basophils Percent Auto 0.4 % (0-2); Eosinophils Percent Auto 0.1 % (0-4); Hematocrit 28.4 % (42.0-52.0); Hemoglobin 9.9 g/dl (14.0-18.0); Imm Gran Abs Auto 0.03 X10*3/uL (0.00-0.03); Imm Gran Pct Auto 0.4 % (0.0-0.4); Lymphocytes Absolute Auto 1.4 X10*3/uL (1.2-4.9); Lymphocytes Percent Auto 20.2 % (20-40); Mean Corpuscular HGB Conc 34.9 g/dl (31.0-36.0); Mean Corpuscular Volume 91.9 fL (80.0-98.0); Mean Platelet Volume 12.5 fL (9.4-12.4); Monocytes Absolute Auto 0.5 X10*3/uL (0.1-1.2); Monocytes Percent Auto 7.7 % (2-11); Neutrophils Absolute Auto 4.8 x10*3/uL (2.0-8.3); Neutrophils Percent Auto 71.2 % (45-73); Red Blood Count 3.09 X10*6/uL (4.60-5.80); Red Cell Distribution Width 13.7 % (11.0-16.0); White Blood Count 6.8 X10*3/uL (4.8-10.8)
[2025-02-24 06:02] LABS: Platelet Count 33 X10*3/uL (160-400)
[2025-02-24 06:09] LABS: Alanine Aminotransferase 24 U/L (0-40); Albumin Level 3.7 g/dL (3.5-5.0); Anion Gap 13 (12-20); Aspartate Amino Transferase 94 U/L (5-37); Bilirubin Total 4.1 mg/dL (0.0-1.0); Blood Urea Nitrogen 14 mg/dL (9-16); Calcium 8.2 mg/dL (8.4-10.2); Carbon Dioxide 19 mmol/L (22-29); Chloride 112 mmol/L (96-108); Creatinine Clr Calc Pharmacy 108.9; Estimated Glomerular Filt Rate > 60; Glucose Random 102 mg/dL (60-115); Magnesium 2.1 mg/dL (1.6-2.6); Phosphorus 1.9 mg/dL (2.7-4.5); Potassium 3.5 mmol/L (3.3-5.1); Sodium 140 mmol/L (135-145); Total Protein 6.1 g/dL (6.5-8.0)
[2025-02-24 06:14] LABS: Alkaline Phosphatase 60 U/L (39-117)
--- NOTE | 2025-02-24 06:18 | PC.NURSE ---
Assumed care 1900, pt alert to person and place, confused/agitated at times.?On precedex see MAR for titrations. Pt c/o opiate withdrawal symptoms?- see COWS assessment. PRN?versed 2 mg IVP administered for anxiety and restlessness per CONCHITA Christina. Pt became hypoxic spO2 mid 80s on RA, placed on 4L to maintain spO2 >90%. Pt tachypneic 30-40s - fentanyl 50 mcg IVP administered for increased work of breathing. Temp 102.9 - tylenol administered per MAR.?On levophed, MAPs >65 - see MAR for titrations. Around 0500 pt increasingly restless - temp 102.7, tachypneic 50s, spO2 87-89% on 4L NC.? CONCHITA Christina made aware. Toradol 30 mg IVP ordered and administered. Placed on 6L oxymask to maintain spO2 >90%.
[2025-02-24 06:27] LABS: Venous Blood Gas Refer to POC result
[2025-02-24] MEDS: Potassium Chloride/H20 40 MEQ/100 ML PIGGYBACK 50 MEQ IV (07:45)
[2025-02-24] MEDS: 0.9 % Sodium Chloride Flush 3 ML SYRINGE IVFLUSH ×2 (07:45→17:01)
[2025-02-24] MEDS: Nicotine 21 MG PATCH.TD24 TRANSDERMA (07:46)
[2025-02-24] MEDS: Acetaminophen Oral Liquid 650 MG/20.3 ML SOLUTION PO ×2 (07:47→15:02)
--- NOTE | 2025-02-24 08:01 | P.PNGS_ITS ---
Subjective Subjective Date of Service: 02/24/25 Patient reports: bowel movement Interval history: Patient now extubated, remains sedated, able to express pain and respond to commands. He had two small BM overnight. Diet has been advanced to clear liquid, tolerating currently. Physical Exam 2 Vital Signs: Vital Signs: Last Vital Signs Temp 102.7 F H 02/24/25 07:00 Pulse 92 02/24/25 07:00 Resp 25 H 02/24/25 07:00 BP 106/77 02/24/25 07:00 Pulse Ox 90 L 02/24/25 07:00 O2 Del Method Oxymask 02/24/25 07:00 O2 Flow Rate 6 02/24/25 07:00 FiO2 21 02/23/25 09:00 BMI result Body Mass Index 19.3 Const: Other: Sedated during exam, able to respond to verbal commands GI: Inspection: Yes distended (mild distention) Palpation (GI): Soft to palpation, Tenderness to palpation present (GI) (generalized) and no guarding Percussion: Yes tympanic to percussion Objective Data Active Medications Acetaminophen (Acetaminophen Oral Liquid 650 Mg/20.3 Ml Solution) 650 mg PO Q6H PRN PRN Reason: Fever >102F Last Admin: 02/24/25 07:47 Dose: 650 mg Documented By: JESÚS Buprenorphine/Naloxone (Buprenorphine/Naloxone 12/3 Mg Film) 1 film SUBLINGUAL BID KORINA Last Admin: 02/24/25 07:46 Dose: 1 film Documented By: JESÚS Norepinephrine Bitartrate (Levophed) 8 mg in 250 mls @ 0 mls/hr IVCONT .Q0M KORINA; Protocol Last Titration: 02/24/25 04:14 Dose: 0.12 mcg/kg/min, 12.06 mls/hr Documented By: LEVI Piperacillin Sod/Tazobactam (Sod 3.375 gm/ Sodium Chloride) 50 mls @ 100 mls/hr IV Q6H KORINA Last Infusion: 02/24/25 07:43 Dose: Infused Documented By: JESÚS Dexmedetomidine HCl (Precedex) 400 mcg in 100 mls @ 0 mls/hr IVCONT .Q0M KORINA; Protocol Last Admin: 02/24/25 05:19 Dose: 1.5 mcg/kg/hr, 23.81 mls/hr Documented By: LEVI Vancomycin HCl 750 mg/ Sodium (Chloride) 265 mls @ 265 mls/hr IV Q8H [facility] Last Infusion: 02/24/25 06:02 Dose: Infused Documented By: LEVI Potassium Chloride (Potassium Chloride/H20) 40 meq in 100 mls @ 50 mls/hr IV ONCE ONE Stop: 02/24/25 09:59 Last Admin: 02/24/25 07:45 Dose: 50 mls/hr Documented By: JESÚS Midazolam HCl (Midazolam Hcl 2 Mg/2 Ml Vial) 2 mg IVPUSH Q2H PRN PRN Reason: anxiety/restlessness Last Admin: 02/24/25 05:05 Dose: 2 mg Documented By: ELVI Multi-Ingred Cream/Lotion/Oil/Oint (Artificial Tears Ophth Oint 3.5 Gm Tube) 1 appl EYE-BOTH TID PRN; Protocol PRN Reason: Dry Eyes Naloxone HCl (Naloxone Hcl 0.4 Mg/Ml Vial) 0.2 mg IVPUSH Q2M PRN PRN Reason: Excessive sedation or RR < 8 Nicotine (Nicotine 21 Mg Patch.Td24) 21 mg TRANSDERMA DAILY [facility] Last Admin: 02/24/25 07:46 Dose: 21 mg Documented By: JESÚS Pantoprazole Sodium (Pantoprazole Sodium 40 Mg/10 Ml Vial) 40 mg IVPUSH BID@0630,1630 [facility] Last Admin: 02/24/25 05:05 Dose: 40 mg Documented By: LEVI Pharmacy Consult (Consult Rx Vancomycin Dosing) 1 each MISCELLANE DAILY PRN PRN Reason: Consult order Sodium Chloride (0.9 % Sodium Chloride Flush 3 Ml Syringe) 3 ml IVFLUSH QSHIFT [facility] Last Admin: 02/24/25 07:45 Dose: 3 ml Documented By: JESÚS Labs 02/24/25 05:05 02/24/25 05:05 Labs: Laboratory Results - last 24 hr 02/23/25 02/24/25 02/24/25 19:00 05:05 05:06 MCV 91.9 MCH 32.0 MCHC 34.9 RDW 13.7 Plt Count 33 L MPV 12.5 H Immature Gran % (Auto) 0.4 Neut % (Auto) 71.2 Lymph % (Auto) 20.2 [place] % (Auto) 7.7 Eos % (Auto) 0.1 Baso % (Auto) 0.4 Lymph # (Auto) 1.4 [place] # (Auto) 0.5 Eos # (Auto) 0.0 Baso # (Auto) 0.0 Abs Immat Gran (auto) 0.03 Absolute Neuts (auto) 4.8 Absolute Nucleated RBC 0.000 Nucleated RBC % (auto) 0.0 VBG pH 7.54 H VBG pCO2 24 VBG pO2 34 VBG HCO3 21 L VBG O2 Saturation 58.0 VBG Base Excess -0.2 Anion Gap 13 Estim Creat Clear Calc 108.9 Estimated GFR > 60 Random Glucose 102 Calcium 8.2 L Phosphorus 1.9 L Magnesium 2.1 Total Bilirubin 4.1 H AST 94 H ALT 24 Alkaline Phosphatase 60 Total Protein 6.1 L Albumin 3.7 Random Vancomycin 6.2 L Microbiology Microbiology Results: Microbiology 02/21/25 21:17 Urine Culture - Final Urine clean catch - Clean Catch Midstream No growth. 02/21/25 19:48 Blood Culture - Preliminary Blood - Venous Staphylococcus aureus 02/21/25 19:48 Blood Culture - Preliminary Blood - Venous Staphylococcus aureus Procedures Date of Service Date of Service: 02/24/25 Progress Note: A&P Assessment and plan (1) Small bowel obstruction: Status: Acute Plan 34 year old male admitted to ICU for septic shock and fentanyl overdose. Patient has been extubated, he remains sedated but is able to communicate minimally with provider during exam. Patients diet has advanced to clear liquids, tolerating well. He has had two small BM overnight. Exam significant for mild distention, tympany to percussion, generalized pain to palpation. Will continue to monitor for worsening pain, nausea, distention. Recommend ambulation as tolerated. continue with clear liquid diet Time Spent With Patient Time: Total time managing care of this patient today ____ minutes. Quality Stroke Does the patient have a stroke diagnosis?: No VTE Prior VTE?: No VTE Risk Level:: Medical - moderate - high VTE Device Contraindication: N/A - Device Ordered VTE Drug Contraindication: N/A - Med Ordered
[2025-02-24] MEDS: dexmedeTOMIDine HCL/NS 400 MCG/100 ML PLAST..BAG 11.11 MCG IVCONT ×2 (09:57→19:55)
[2025-02-24] MEDS: Buprenorphine/Naloxone 12/3 mg FILM 1 FILM SUBLINGUAL ×2 (09:58→19:54)
--- NOTE | 2025-02-24 10:19 | HO.WOUND ---
Wound Consult: Initial 34yr old?male admitted to [facility] on 02/21/25 - See progress notes and H&P for detailed history.? Wound consult placed for Left Hand.? Patient was no interactive with his environment at the time of my consultation. Left Dorsal Hand Etiology: ?Ulceration secondary to IV injection site Measurements: 4cm x 5cm x 0.2cm Wound Bed: dried brown scab Drainage / Odor: None Edges: irregular and attached? Evelyn wound: Hyperpigmentation - firmness noted, scar tissue noted - No Fluctuance or Warmth noted Pain: not pain indicators at the time of my assessment Goals of Treatment: ? Hydrocolloid to keep covered and allow for autolytic debridement Right hand is noted for healed scar tissue with hyperpigmentation noted. Recommendations: 1. Turn and Reposition every 2 hours and as needed for patient comfort.? Use pillows or wedges to support off loading positions. 2. Off Load all bony prominences with use of pillows and heel boots if needed.? Apply Preventative foams where needed. ? 3. Monitor for incontinence and moisture control, use barrier creams when needed for prevention and treatment. 4. Provide adequate and supplemental nutrition.? 5. Continue low air loss mattress. 6. When applicable maintain blood glucose levels per Providers order. Left Hand - Cleanse with NS moist gauze, dry well. Apply skin prep allow to dry. Cover with Hyrdocolloid dressing. Change every 3 -4 days and PRN. Re-consult wound care Nurse for wound deterioration or wound changes.
--- NOTE | 2025-02-24 11:39 | MHC.CLN ---
F/U QUALIFIES FOR NON-SEVERE MALNUTRITION IN THE CONTEXT OF SOCIAL/BEHAVIORAL/ENVIRONMENTAL DISCUSSED AT ROUNDS WITH MD DIET ADVANCED TO CLEAR LIQUIDS PT DRANK OJ PER NURSING REPORT RECOMMEND ADDING ENSURE CLEAR TID TO INCREASE KCALS SUPP TO PROVIDE 720KCALS, 24G PROTEIN WITH 100% ACCEPTANCE MONITOR PO INTAKE AND ENCOURAGE SUPPLEMENT
[2025-02-24 12:28] LABS: VBG HCO3 18 mmol/L (22-26); VBG pCO2 26 mmHg; VBG pH 7.44 (7.32-7.43); VBG pO2 89 mmHg
[2025-02-24 12:29] LABS: Venous Blood Gas Refer to POC result
[2025-02-24 12:36] LABS: Anion Gap 12 (12-20); Blood Urea Nitrogen 17 mg/dL (9-16); Calcium 8.5 mg/dL (8.4-10.2); Carbon Dioxide 19 mmol/L (22-29); Chloride 113 mmol/L (96-108); Creatinine Clr Calc Pharmacy 92.6; Estimated Glomerular Filt Rate > 60; Glucose Random 132 mg/dL (60-115); Potassium 3.8 mmol/L (3.3-5.1); Sodium 140 mmol/L (135-145)
--- NOTE | 2025-02-24 12:55 | P.PNCC_ITS ---
Subjective Subjective Date of Service: 02/24/25 Interval History: 34-year-old gentleman with underlying history of polysubstance abuse including opiates and cocaine admitted on 02/21/2025 after he was found unresponsive by police. On ER evaluation patient in respiratory distress requiring emergent intubation and ventilatory support. Also noted to have evidence of acute kidney injury with significant metabolic acidosis and rhabdomyolysis, NSTEMI, and undifferentiated shock. Patient empirically covered with broad-spectrum antibiotics and started on pressor support. Initial imaging with likely evidence of small-bowel obstruction, but essentially negative CT chest and CT head. Patient admitted to the intensive care unit. With evidence of wall motion abnormalities, patient started on heparin drip, but had to be held secondary to worsening thrombocytopenia. Extubated uneventfully on 02/23/2025. No events overnight. Critical Care Time (minutes): 45 Physical Exam 2 Vital Signs: Vital Signs: Last Vital Signs Temp 99.7 F 02/24/25 12:00 Pulse 88 02/24/25 12:00 Resp 40 H 02/24/25 12:00 BP 118/86 02/24/25 12:00 Pulse Ox 90 L 02/24/25 12:00 O2 Del Method Oxymask 02/24/25 12:00 O2 Flow Rate 6 02/24/25 12:00 FiO2 21 02/23/25 09:00 BMI result Body Mass Index 19.3 Const: General: no acute distress and lethargic (Intermittently agitated) O rientation/consciousness: lethargic (Intermittently agitated) Eyes: Sclerae: sclerae normal EOM: EOMs intact bilaterally Neck: Neck: Yes no lymphadenopathy, Yes trachea midline and Yes supple Resp: Effort & Inspection: normal respiratory effort and no respiratory distress Auscultation: crackles (Bilateral) Cardio: Rate: regular rate Rhythm: regular rhythm Heart sounds: no gallops, no murmurs and no rubs GI: Palpation (GI): Soft to palpation Auscultation: Hypoactive bowel sounds present Extrem: General: Yes no pedal edema, No clubbing and No cyanosis Objective Data Labs 02/24/25 05:05 02/24/25 12:18 Labs: Laboratory Results - last 24 hr 02/23/25 02/24/25 02/24/25 19:00 05:05 05:06 WBC 6.8 RBC 3.09 L Hgb 9.9 L Hct 28.4 L MCV 91.9 MCH 32.0 MCHC 34.9 RDW 13.7 Plt Count 33 L MPV 12.5 H Immature Gran % (Auto) 0.4 Neut % (Auto) 71.2 Lymph % (Auto) 20.2 [place] % (Auto) 7.7 Eos % (Auto) 0.1 Baso % (Auto) 0.4 Lymph # (Auto) 1.4 [place] # (Auto) 0.5 Eos # (Auto) 0.0 Baso # (Auto) 0.0 Abs Immat Gran (auto) 0.03 Absolute Neuts (auto) 4.8 Absolute Nucleated RBC 0.000 Nucleated RBC % (auto) 0.0 VBG pH 7.54 H VBG pCO2 24 VBG pO2 34 VBG HCO3 21 L VBG O2 Saturation 58.0 VBG Base Excess -0.2 Sodium 140 Potassium 3.5 Chloride 112 H Carbon Dioxide 19 L Anion Gap 13 BUN 14 Creatinine 0.85 Estim Creat Clear Calc 108.9 Estimated GFR > 60 Random Glucose 102 Calcium 8.2 L Phosphorus 1.9 L Magnesium 2.1 Total Bilirubin 4.1 H AST 94 H ALT 24 Alkaline Phosphatase 60 Total Protein 6.1 L Albumin 3.7 Random Vancomycin 6.2 L 02/24/25 02/24/25 12:18 12:24 WBC RBC Hgb Hct MCV MCH MCHC RDW Plt Count MPV Immature Gran % (Auto) Neut % (Auto) Lymph % (Auto) [place] % (Auto) Eos % (Auto) Baso % (Auto) Lymph # (Auto) [place] # (Auto) Eos # (Auto) Baso # (Auto) Abs Immat Gran (auto) Absolute Neuts (auto) Absolute Nucleated RBC Nucleated RBC % (auto) VBG pH 7.44 H VBG pCO2 26 VBG pO2 89 VBG HCO3 18 L VBG O2 Saturation 97.0 VBG Base Excess -4.0 Sodium 140 Potassium 3.8 Chloride 113 H Carbon Dioxide 19 L Anion Gap 12 BUN 17 H Creatinine 0.96 Estim Creat Clear Calc 92.6 Estimated GFR > 60 Random Glucose 132 H Calcium 8.5 Phosphorus Magnesium Total Bilirubin AST ALT Alkaline Phosphatase Total Protein Albumin Random Vancomycin Microbiology Microbiology Results: Microbiology 02/21/25 19:48 Blood - Venous Blood Culture - Final Methicillin Res Staph Aureus 02/21/25 19:48 Blood - Venous Blood Culture - Final Methicillin Res Staph Aureus 02/21/25 21:17 Urine clean catch - Clean Catch Midstream Urine Culture - Final No growth. Progress Note: A&P Assessment and plan (1) Polysubstance abuse: Status: Acute (2) MRSA bacteremia: Status: Acute (3) ENRRIQUE (acute kidney injury): Status: Acute (4) Small bowel obstruction: Status: Acute (5) Toxic encephalopathy: Status: Acute Plan Assessment: 34-year-old gentleman admitted with shock and staphylococcal bacteremia on a background of polysubstance abuse with likely cocaine induced vasospasm resulting in acute kidney injury and NSTEMI, also noted to have small- bowel obstruction Plan: Neuro: Toxic encephalopathy likely secondary to polysubstance abuse, may also have underlying cocaine induced vasospasm ischemia. Initial CT head with no acute findings. Cardiac: Shock, likely septic, may have cardiac component. Continue to titrate off pressors as tolerated. Cardiology service appreciated. 2D echocardiogram with wall motion abnormalities, started on heparin drip, however had to hold it secondary to worsening thrombocytopenia. Pulmonary: Acute respiratory failure secondary to polysubstance abuse requiring ventilatory support, improved, extubated uneventfully this a.m.. Renal: Acute renal failure on background of polysubstance abuse and shock now with oliguria. Continue to monitor renal indices and urine output. Endo: No acute issues. GI: CT abdomen with evidence of small-bowel obstruction. General surgery service care appreciated. Abdominal exam remains benign. ID: MRSA bacteremia. Continue empiric broad-spectrum antibiotics. Heme/Onc: No acute issues. Psych: No acute issues. Miscellaneous: No acute issues. Prophylaxis: Heparin, ppi Diet: NPO Critical care time spent: 45 minutes Quality Stroke Does the patient have a stroke diagnosis?: No VTE Prior VTE?: No VTE Risk Level:: Medical - moderate - high VTE Device Contraindication: N/A - Device Ordered VTE Drug Contraindication: N/A - Med Ordered
--- NOTE | 2025-02-24 14:36 | MHC.CM.PN ---
Pt extubated on 02/23 : continues care in ICU for OD, NSTEMI and SBO. Plans for the day are to reduce Precedex dosing and re draw blood cx. No plans for transfer at this time. CM to follow for medical stability.
[2025-02-24] MEDS: Norepinephrine Bitartrate/D5W 8 MG/250 ML PLAST..BAG 4.02 MG IVCONT (17:51)
[2025-02-24 19:45] LABS: Vancomycin Trough 20.5 mcg/mL (10.0-20.0)
[2025-02-24] MEDS: vancomycin HCL 1,000 MG in 0.9 % Sodium Chloride 250 ML 270 MG IV (22:18)
[2025-02-25] VITALS (29 sets, daily range): BP systolic 89–148; BP diastolic 49–103; PULSE 77–121; RESP 15–55; TEMP 36.1–39; O2SAT 90–98; BMI 20.1
[2025-02-25] MEDS: Piperacillin Sodium/Tazobactam 3.375 GM in 0.9 % Sodium Chloride 50 ML IV ×2 (00:28→06:00)
[2025-02-25] MEDS: Acetaminophen Oral Liquid 650 MG/20.3 ML SOLUTION PO ×2 (00:28→18:37)
[2025-02-25] MEDS: 0.9 % Sodium Chloride Flush 3 ML SYRINGE IVFLUSH ×4 (00:29→23:48)
[2025-02-25] MEDS: Ketorolac Tromethamine 15 MG/ML VIAL 30 MG IVPUSH (02:41)
--- NOTE | 2025-02-25 03:17 | HE.ICUCC ---
ICU Critical Care Nursing Note ICU Day #:5 Patient A&Ox1 , vague at times SR-ST on telemetry 6L O2 NC Hypoactive BS/tolerating clear liquids Left hand abrasion with dressing CDI/ right hand heeling abrasion/redness to coccyx Patient is homeless/ mother has been inquiring about pt. Positive for MRSA/ contact precautions TLC to right IJ
[2025-02-25 05:10] LABS: VBG Base Excess -1.9 mmol/L; VBG HCO3 22 mmol/L (22-26); VBG pCO2 34 mmHg; VBG pH 7.41 (7.32-7.43); VBG pO2 39 mmHg
[2025-02-25 05:12] LABS: Basophils Percent Auto 0.5 % (0-2); Eosinophils Percent Auto 0.9 % (0-4); Hematocrit 26.4 % (42.0-52.0); Hemoglobin 9.1 g/dl (14.0-18.0); Imm Gran Abs Auto 0.04 X10*3/uL (0.00-0.03); Imm Gran Pct Auto 0.9 % (0.0-0.4); Lymphocytes Absolute Auto 1.2 X10*3/uL (1.2-4.9); Lymphocytes Percent Auto 28.4 % (20-40); MANUAL DIFF FLAG SCAN; Mean Corpuscular HGB Conc 34.5 g/dl (31.0-36.0); Mean Corpuscular Hemoglobin 32.3 pg (27.0-33.0); Mean Corpuscular Volume 93.6 fL (80.0-98.0); Mean Platelet Volume 12.3 fL (9.4-12.4); Monocytes Absolute Auto 0.4 X10*3/uL (0.1-1.2); Monocytes Percent Auto 9.2 % (2-11); Neutrophils Absolute Auto 2.6 x10*3/uL (2.0-8.3); Neutrophils Percent Auto 60.1 % (45-73); Red Blood Count 2.82 X10*6/uL (4.60-5.80); Red Cell Distribution Width 14.1 % (11.0-16.0); SCAN SMEAR FLAG 1; White Blood Count 4.4 X10*3/uL (4.8-10.8)
[2025-02-25 05:13] LABS: Platelet Count 32 X10*3/uL (160-400)
[2025-02-25 05:34] LABS: Alanine Aminotransferase 19 U/L (0-40); Albumin Level 3.2 g/dL (3.5-5.0); Anion Gap 10 (12-20); Aspartate Amino Transferase 75 U/L (5-37); Bilirubin Total 3.3 mg/dL (0.0-1.0); Blood Urea Nitrogen 16 mg/dL (9-16); Calcium 7.9 mg/dL (8.4-10.2); Carbon Dioxide 21 mmol/L (22-29); Chloride 114 mmol/L (96-108); Estimated Glomerular Filt Rate > 60; Glucose Random 84 mg/dL (60-115); Magnesium 1.9 mg/dL (1.6-2.6); Phosphorus 2.2 mg/dL (2.7-4.5); Potassium 3.7 mmol/L (3.3-5.1); Sodium 141 mmol/L (135-145); Total Protein 5.6 g/dL (6.5-8.0)
[2025-02-25 05:38] LABS: Alkaline Phosphatase 99 U/L (39-117); SLIDE REVIEW VERIFIED
[2025-02-25] MEDS: Pantoprazole Sodium 40 MG/10 ML VIAL IVPUSH (06:00)
[2025-02-25] MEDS: Albumin Human 25 % 100 ML IV ×2 (08:02→14:41)
[2025-02-25] MEDS: Potassium Phosphate/NS 15 MMOL/250 ML PLAST..BAG 62.5 MMOL IV (08:02)
[2025-02-25] MEDS: Nicotine 21 MG PATCH.TD24 TRANSDERMA (08:39)
[2025-02-25] MEDS: Buprenorphine/Naloxone 12/3 mg FILM 1 FILM SUBLINGUAL ×2 (08:39→20:57)
[2025-02-25] MEDS: Furosemide 20 MG/2 ML VIAL IVPUSH (09:31)
[2025-02-25] MEDS: Midazolam HCl 2 MG/2 ML VIAL IVPUSH ×4 (09:31→23:42)
--- NOTE | 2025-02-25 09:45 | PM.CCPN ---
Subjective Subjective Date of Service: 02/25/25 Interval History: 34-year-old gentleman with underlying history of polysubstance abuse including opiates and cocaine admitted on 02/21/2025 after he was found unresponsive by police. On ER evaluation patient in respiratory distress requiring emergent intubation and ventilatory support. Also noted to have evidence of acute kidney injury with significant metabolic acidosis and rhabdomyolysis, NSTEMI, and undifferentiated shock. Patient empirically covered with broad-spectrum antibiotics and started on pressor support. Initial imaging with likely evidence of small-bowel obstruction, but essentially negative CT chest and CT head. Patient admitted to the intensive care unit. With evidence of wall motion abnormalities, patient started on heparin drip, but had to be held secondary to worsening thrombocytopenia. Extubated uneventfully on 02/23/2025. No events overnight. Titrated off pressor support. Critical Care Time (minutes): 0 Physical Exam Vital Signs: Vital Signs: Last Vital Signs Temp 97.0 F 02/25/25 08:00 Pulse 96 02/25/25 09:28 Resp 36 H 02/25/25 09:00 BP 122/83 02/25/25 09:28 Pulse Ox 91 L 02/25/25 09:00 O2 Del Method Nasal Cannula 02/25/25 09:00 O2 Flow Rate 6 02/25/25 09:00 FiO2 21 02/23/25 09:00 BMI result Body Mass Index 20.1 Const: General: no acute distress, alert and awake Eyes: Sclerae: sclerae normal EOM: EOMs intact bilaterally Neck: Neck: Yes no lymphadenopathy, Yes trachea midline and Yes supple Resp: Effort & Inspection: normal respiratory effort and no respiratory distress Auscultation: clear to auscultation bilaterally Cardio: Rate: regular rate Rhythm: regular rhythm Heart sounds: no gallops, no murmurs and no rubs GI: Palpation (GI): Soft to palpation and Other GI palpation findings present ( Nontender) Auscultation: normal bowel sounds Extrem: General: Yes no pedal edema, No clubbing and No cyanosis Objective Data Labs 02/25/25 05:02 02/25/25 05:02 Labs: Laboratory Results - last 24 hr 02/24/25 02/24/25 02/24/25 12:18 12:24 19:12 WBC RBC Hgb Hct MCV MCH MCHC RDW Plt Count MPV Immature Gran % (Auto) Neut % (Auto) Lymph % (Auto) [place] % (Auto) Eos % (Auto) Baso % (Auto) Lymph # (Auto) [place] # (Auto) Eos # (Auto) Baso # (Auto) Abs Immat Gran (auto) Absolute Neuts (auto) Absolute Nucleated RBC Nucleated RBC % (auto) Smear Tech's Comments VBG pH 7.44 H VBG pCO2 26 VBG pO2 89 VBG HCO3 18 L VBG O2 Saturation 97.0 VBG Base Excess -4.0 Sodium 140 Potassium 3.8 Chloride 113 H Carbon Dioxide 19 L Anion Gap 12 BUN 17 H Creatinine 0.96 Estim Creat Clear Calc 92.6 Estimated GFR > 60 Random Glucose 132 H Calcium 8.5 Phosphorus Magnesium Total Bilirubin AST ALT Alkaline Phosphatase Total Protein Albumin Vancomycin Trough 20.5 H 02/25/25 02/25/25 05:02 05:05 WBC 4.4 L RBC 2.82 L Hgb 9.1 L Hct 26.4 L MCV 93.6 MCH 32.3 MCHC 34.5 RDW 14.1 Plt Count 32 L MPV 12.3 Immature Gran % (Auto) 0.9 H Neut % (Auto) 60.1 Lymph % (Auto) 28.4 [place] % (Auto) 9.2 Eos % (Auto) 0.9 Baso % (Auto) 0.5 Lymph # (Auto) 1.2 [place] # (Auto) 0.4 Eos # (Auto) 0.0 Baso # (Auto) 0.0 Abs Immat Gran (auto) 0.04 H Absolute Neuts (auto) 2.6 Absolute Nucleated RBC 0.000 Nucleated RBC % (auto) 0.0 Smear Tech's Comments VERIFIED VBG pH 7.41 VBG pCO2 34 VBG pO2 39 VBG HCO3 22 VBG O2 Saturation 63.0 VBG Base Excess -1.9 Sodium 141 Potassium 3.7 Chloride 114 H Carbon Dioxide 21 L Anion Gap 10 L BUN 16 Creatinine 0.88 Estim Creat Clear Calc 101.0 Estimated GFR > 60 Random Glucose 84 Calcium 7.9 L D Phosphorus 2.2 L Magnesium 1.9 Total Bilirubin 3.3 H AST 75 H ALT 19 Alkaline Phosphatase 99 Total Protein 5.6 L Albumin 3.2 L Vancomycin Trough Microbiology Microbiology Results: Microbiology 02/21/25 19:48 Blood - Venous Blood Culture - Final Methicillin Res Staph Aureus 02/21/25 19:48 Blood - Venous Blood Culture - Final Methicillin Res Staph Aureus 02/21/25 21:17 Urine clean catch - Clean Catch Midstream Urine Culture - Final No growth. Progress Note: A&P Assessment and plan (1) Polysubstance abuse: Status: Acute (2) NSTEMI (non-ST elevated myocardial infarction): Status: Acute (3) Small bowel obstruction: Status: Acute (4) ENRRIQUE (acute kidney injury): Status: Acute (5) MRSA bacteremia: Status: Acute (6) Toxic encephalopathy: Status: Acute (7) Acute respiratory failure: Status: Acute Plan Assessment: 34-year-old gentleman admitted with shock and staphylococcal bacteremia on a background of polysubstance abuse with likely cocaine induced vasospasm resulting in acute kidney injury and NSTEMI, also noted to have small-bowel obstruction Plan: Neuro: Toxic encephalopathy likely secondary to polysubstance abuse, may also have underlying cocaine induced vasospasm ischemia. Initial CT head with no acute findings. Cardiac: Shock, likely septic, may have cardiac component. Continue to titrate off pressors as tolerated. Cardiology service appreciated. 2D echocardiogram with systolic dysfunction and wall motion abnormalities, started on heparin drip, however had to stop it secondary to worsening thrombocytopenia. Pulmonary: Acute respiratory failure secondary to polysubstance abuse requiring ventilatory support, improved, extubated 02/24/2025. Continue to titrate off supplemental oxygen as tolerated Renal: Acute renal failure on background of polysubstance abuse and shock, improved. Continue to monitor renal indices and urine output. Endo: No acute issues. GI: CT abdomen with evidence of small-bowel obstruction. General surgery service care appreciated. Abdominal exam remains benign. Now tolerating regular diet. ID: MRSA bacteremia. Continue empiric broad-spectrum antibiotics. Heme/Onc: Thrombocytopenia, likely sepsis related. Psych: No acute issues. Miscellaneous: No acute issues. Prophylaxis: Pneumatic compression Diet: Regular Critical care time spent: 45 minutes Quality Stroke Does the patient have a stroke diagnosis?: No VTE Prior VTE?: No VTE Risk Level:: Medical - moderate - high VTE Device Contraindication: N/A - Device Ordered VTE Drug Contraindication: N/A - Med Ordered
[2025-02-25] MEDS: vancomycin HCL 1,000 MG in 0.9 % Sodium Chloride 250 ML 270 MG IV ×2 (11:08→23:47)
[2025-02-25] MEDS: cloNIDine HCL 0.1 MG TABLET PO ×2 (11:09→21:24)
[2025-02-25 13:07] LABS: Venous Blood Gas Refer to POC result
[2025-02-25] MEDS: Lidocaine 4 % Patch ADH..PATCH 2 PATCH TRANSDERMA ×2 (16:27→20:58)
[2025-02-25] MEDS: ondansetron HCL 4 MG/2 ML VIAL IVPUSH (18:37)
[2025-02-25 19:51] LABS: Lactic Acid 1.4 mmol/L (0.5-2.0)
[2025-02-25 22:51] LABS: Vancomycin Random 13.7 mcg/mL (15-20)
[2025-02-26] VITALS (7 sets, daily range): BP systolic 116–134; BP diastolic 75–85; PULSE 95–107; RESP 18–20; TEMP 36.4–37.6; O2SAT 92–100; BMI 21.0
[2025-02-26] MEDS: Midazolam HCl 2 MG/2 ML VIAL IVPUSH (07:52)
[2025-02-26 08:22] LABS: Venous Blood Gas Refer to POC result
[2025-02-26 08:23] LABS: Basophils Percent Auto 0.4 % (0-2); Eosinophils Percent Auto 0.6 % (0-4); Hematocrit 28.3 % (42.0-52.0); Imm Gran Abs Auto 0.05 X10*3/uL (0.00-0.03); Imm Gran Pct Auto 0.9 % (0.0-0.4); Lymphocytes Absolute Auto 1.6 X10*3/uL (1.2-4.9); Lymphocytes Percent Auto 29.1 % (20-40); MANUAL DIFF FLAG SCAN; Mean Corpuscular HGB Conc 35.3 g/dl (31.0-36.0); Mean Corpuscular Hemoglobin 32.3 pg (27.0-33.0); Mean Corpuscular Volume 91.3 fL (80.0-98.0); Monocytes Absolute Auto 0.5 X10*3/uL (0.1-1.2); Neutrophils Absolute Auto 3.2 x10*3/uL (2.0-8.3); Red Cell Distribution Width 13.4 % (11.0-16.0); SCAN SMEAR FLAG 1; White Blood Count 5.4 X10*3/uL (4.8-10.8)
[2025-02-26 08:24] LABS: VBG HCO3 22 mmol/L (22-26); VBG pCO2 29 mmHg; VBG pH 7.49 (7.32-7.43); VBG pO2 44 mmHg
[2025-02-26 08:24] LABS: Platelet Count 53 X10*3/uL (160-400)
[2025-02-26 08:45] LABS: Alanine Aminotransferase 23 U/L (0-40); Albumin Level 3.6 g/dL (3.5-5.0); Alkaline Phosphatase 171 U/L (39-117); Anion Gap 13 (12-20); Aspartate Amino Transferase 79 U/L (5-37); Bilirubin Total 2.4 mg/dL (0.0-1.0); Blood Urea Nitrogen 9 mg/dL (9-16); Calcium 8.1 mg/dL (8.4-10.2); Carbon Dioxide 19 mmol/L (22-29); Chloride 108 mmol/L (96-108); Creatinine Clr Calc Pharmacy 142.4; Estimated Glomerular Filt Rate > 60; Glucose Random 91 mg/dL (60-115); Magnesium 1.7 mg/dL (1.6-2.6); Phosphorus 2.2 mg/dL (2.7-4.5); Potassium 3.6 mmol/L (3.3-5.1); Sodium 136 mmol/L (135-145); Total Protein 6.4 g/dL (6.5-8.0)
[2025-02-26 09:03] LABS: SLIDE REVIEW VERIFIED
[2025-02-26] MEDS: cloNIDine HCL 0.1 MG TABLET PO ×2 (09:10→20:16)
[2025-02-26] MEDS: Buprenorphine/Naloxone 12/3 mg FILM 1 FILM SUBLINGUAL ×3 (09:11→22:43)
[2025-02-26] MEDS: Lidocaine 4 % Patch ADH..PATCH 2 PATCH TRANSDERMA (09:11)
[2025-02-26] MEDS: vancomycin HCL 1,000 MG in 0.9 % Sodium Chloride 250 ML 270 MG IV ×2 (09:12→22:40)
[2025-02-26] MEDS: Nicotine 21 MG PATCH.TD24 TRANSDERMA (09:18)
[2025-02-26] MEDS: 0.9 % Sodium Chloride Flush 3 ML SYRINGE IVFLUSH ×2 (09:34→17:12)
--- NOTE | 2025-02-26 12:37 | P.PNIM_ITS ---
Subjective Subjective Date of Service: 02/26/25 Interval History: Seen and evaluated this morning spiking fever last night feels overall better but weak and has no energy still on O2 supplement Review of Systems Review of Systems: Yes all other systems are reviewed and are negative Physical Exam 2 Vital Signs: Vital Signs: Last Vital Signs Temp 99.5 F 02/26/25 11:27 Pulse 95 02/26/25 11:27 Resp 20 02/26/25 11:27 BP 120/78 02/26/25 11:27 Pulse Ox 92 02/26/25 11:27 O2 Del Method Nasal Cannula 02/26/25 11:27 O2 Flow Rate 6 02/26/25 11:27 FiO2 21 02/23/25 09:00 BMI result Body Mass Index 21.0 Const: Other: Constitutional : Awake, interactive, not in distress Neck : Normal inspection, Supple Cardiovascular : RRR, no JVP, trace lower extremity edema Respiratory : good bilateral air entry, no crackles, wheezes or rhonchi Gastrointestinal: soft, lax, Normal bowel sounds, Non tender Skin : Warm, Dry, left hand dorsal ulcer with no erythema Neurological : Alert & oriented x3, No focal deficit Objective Data Active Medications Acetaminophen (Acetaminophen Oral Liquid 650 Mg/20.3 Ml Solution) 650 mg PO Q6H PRN PRN Reason: Fever >102F Last Admin: 02/25/25 18:37 Dose: 650 mg Documented By: RANDAL Aspirin (Aspirin Enteric Coated 81 Mg Tablet.Dr) 81 mg PO DAILY [facility] Buprenorphine/Naloxone (Buprenorphine/Naloxone 12/3 Mg Film) 1 film SUBLINGUAL BID [facility] Last Admin: 02/26/25 09:11 Dose: 1 film Documented By: SARAH Clonidine HCl (Clonidine Hcl 0.1 Mg Tablet) 0.1 mg PO BID PRN; Protocol PRN Reason: anxiety Last Admin: 02/26/25 09:10 Dose: 0.1 mg Documented By: SARAH Dicyclomine HCl (Dicyclomine Hcl 10 Mg Capsule) 10 mg PO QIDACHS PRN PRN Reason: abdominal pain, cramps Vancomycin HCl 1,000 mg/ (Sodium Chloride) 270 mls @ 270 mls/hr IV Q12H [facility] Last Infusion: 02/26/25 11:31 Dose: Infused Documented By: SARAH Lidocaine (Lidocaine 4 % Patch Adh..Patch) 2 patch TRANSDERMA DAILY [facility]; Protocol Last Admin: 02/26/25 09:11 Dose: 2 patch Documented By: SARAH Midazolam HCl (Midazolam Hcl 2 Mg/2 Ml Vial) 2 mg IVPUSH Q2H PRN PRN Reason: anxiety/restlessness Last Admin: 02/26/25 07:52 Dose: 2 mg Documented By: SARAH Multi-Ingred Cream/Lotion/Oil/Oint (Artificial Tears Ophth Oint 3.5 Gm Tube) 1 appl EYE-BOTH TID PRN; Protocol PRN Reason: Dry Eyes Naloxone HCl (Naloxone Hcl 0.4 Mg/Ml Vial) 0.2 mg IVPUSH Q2M PRN PRN Reason: Excessive sedation or RR < 8 Nicotine (Nicotine 21 Mg Patch.Td24) 21 mg TRANSDERMA DAILY [facility] Last Admin: 02/26/25 09:18 Dose: 21 mg Documented By: SARAH Ondansetron HCl (Ondansetron Hcl 4 Mg/2 Ml Vial) 4 mg IVPUSH Q6H PRN PRN Reason: Nausea and Vomiting Last Admin: 02/25/25 18:37 Dose: 4 mg Documented By: RANDAL Pharmacy Consult (Consult Rx Vancomycin Dosing) 1 each MISCELLANE DAILY PRN PRN Reason: Consult order Sodium Chloride (0.9 % Sodium Chloride Flush 3 Ml Syringe) 3 ml IVFLUSH QSHIFT [facility] Last Admin: 02/26/25 09:34 Dose: 3 ml Documented By: SARAH Trazodone HCl (Trazodone Hcl 50 Mg Tablet) 50 mg PO BEDTIME PRN PRN Reason: Insomnia Labs 02/26/25 08:15 02/26/25 08:15 Labs: Laboratory Results - last 24 hr 02/25/25 02/25/25 02/26/25 19:17 22:06 08:15 MCV 91.3 MCH 32.3 MCHC 35.3 RDW 13.4 Plt Count 53 L D MPV 12.0 Immature Gran % (Auto) 0.9 H Neut % (Auto) 60.0 Lymph % (Auto) 29.1 [place] % (Auto) 9.0 Eos % (Auto) 0.6 Baso % (Auto) 0.4 Lymph # (Auto) 1.6 [place] # (Auto) 0.5 Eos # (Auto) 0.0 Baso # (Auto) 0.0 Abs Immat Gran (auto) 0.05 H Absolute Neuts (auto) 3.2 Absolute Nucleated RBC 0.000 Nucleated RBC % (auto) 0.0 Smear Tech's Comments VERIFIED VBG pH VBG pCO2 VBG pO2 VBG HCO3 VBG O2 Saturation VBG Base Excess Anion Gap 13 Estim Creat Clear Calc 142.4 Estimated GFR > 60 Random Glucose 91 Lactic Acid 1.4 Calcium 8.1 L Phosphorus 2.2 L Magnesium 1.7 Total Bilirubin 2.4 H AST 79 H ALT 23 Alkaline Phosphatase 171 H Total Protein 6.4 L Albumin 3.6 Random Vancomycin 13.7 L 02/26/25 08:21 MCV MCH MCHC RDW Plt Count MPV Immature Gran % (Auto) Neut % (Auto) Lymph % (Auto) [place] % (Auto) Eos % (Auto) Baso % (Auto) Lymph # (Auto) [place] # (Auto) Eos # (Auto) Baso # (Auto) Abs Immat Gran (auto) Absolute Neuts (auto) Absolute Nucleated RBC Nucleated RBC % (auto) Smear Tech's Comments VBG pH 7.49 H VBG pCO2 29 VBG pO2 44 VBG HCO3 22 VBG O2 Saturation 72.0 VBG Base Excess 0.0 Anion Gap Estim Creat Clear Calc Estimated GFR Random Glucose Lactic Acid Calcium Phosphorus Magnesium Total Bilirubin AST ALT Alkaline Phosphatase Total Protein Albumin Random Vancomycin Microbiology Microbiology Results: Microbiology 02/24/25 09:37 Blood Culture - Preliminary Blood - Venous No growth after 48 hours. 02/24/25 09:36 Blood Culture - Preliminary Blood - Venous No growth after 48 hours. Assessment and Plan (1) NSTEMI (non-ST elevated myocardial infarction): Status: Acute (2) Toxic encephalopathy: Status: Acute (3) MRSA bacteremia: Status: Acute (4) Acute alteration in mental status: Status: Acute (5) ENRRIQUE (acute kidney injury): Status: Acute (6) Polysubstance abuse: Status: Acute Plan A 34-year-old gentleman admitted with shock and staphylococcal bacteremia on a background of polysubstance abuse with likely cocaine induced vasospasm resulting in acute kidney injury and NSTEMI, also noted to have small-bowel obstruction Fever in MRSA bacteremia complicated by septic shock on presentation Continue Vancomycin follow repeat cultures ID consult PICC placement once clear ACute Toxic encephalopathy likely secondary to polysubstance abuse and overdose, on presentation CT head with no acute findings NSTEMI likely septic\ischemic Cardiology service appreciated 2D echocardiogram with systolic dysfunction and wall motion abnormalities started on heparin drip, but had to stop it secondary to worsening thrombocytopenia while in ICU Cardio asked to start Aspirin if remains >50 Acute respiratory failure secondary to polysubstance abuse required ventilatory support, extubated 02/24/2025. Wean down supplemental oxygen as tolerated Thrombocytopenia likely sepsis related Improving Cardio asked to start Aspirin if remains >[address] abdomen with evidence of small-bowel obstruction. General surgery service care appreciated. Acute renal failure on background of polysubstance abuse and shock resolved IVDU On Suboxone Addiction team eval Prophylaxis: Pneumatic compression Diet: Regular The patient will need inpatient stay for IV antibiotics for bacteremia pending resolution of fever, weaning down O2 as tolerated and follow Quality Stroke Does the patient have a stroke diagnosis?: No VTE Prior VTE?: No VTE Risk Level:: Medical - moderate - high VTE Device Contraindication: N/A - Device Ordered VTE Drug Contraindication: N/A - Med Ordered
[2025-02-26] MEDS: Ketorolac Tromethamine 30 MG/ML VIAL IVPUSH (17:34)
[2025-02-26] MEDS: Lidocaine 4 % Patch ADH..PATCH 1 PATCH TRANSDERMA (20:16)
[2025-02-26 21:31] LABS: Vancomycin Random 13.3 mcg/mL (15-20)
[2025-02-26] MEDS: traZODone HCL 50 MG TABLET PO (22:43)
[2025-02-27] VITALS (7 sets, daily range): BP systolic 103–127; BP diastolic 67–80; PULSE 86–107; RESP 16–22; TEMP 36.4–39.2; O2SAT 92–97; BMI 20.9
[2025-02-27] MEDS: LORazepam 0.5 MG TABLET 0.25 MG PO ×3 (02:55→23:02)
[2025-02-27] MEDS: Zolpidem Tartrate 5 MG TABLET PO ×2 (02:55→23:02)
[2025-02-27] MEDS: Acetaminophen Oral Liquid 650 MG/20.3 ML SOLUTION PO (03:21)
--- NOTE | 2025-02-27 07:13 | HO.SKINPHOTO ---
Location: Category: Stage: Length: Width: Depth: cm Location: Category: Stage: Length: Width: Depth: cm Location: Category: Stage: Length: Width: Depth: cm Location: Category: Stage: Length: Width: Depth: cm Location: Category: Stage: Length: Width: Depth: cm Location: Category: Stage: Length: Width: Depth: cm
[2025-02-27 07:30] LABS: Creatinine Clr Calc Pharmacy 137.5; Estimated Glomerular Filt Rate > 60
[2025-02-27] MEDS: Lidocaine 4 % Patch ADH..PATCH 2 PATCH TRANSDERMA (07:37)
--- NOTE | 2025-02-27 10:21 | MHC.RECOVRN ---
Attempted to meet with pt in 444 after receiving Addiction Medicine consult and to complete ROSSY evaluation. Pt laying in bed in the dark, moaning, states I'm withdrawing hard from fentanyl. T/w introduced self, pt declines meeting at this time. Pt continues to decline morning Suboxone dose. Pt requesting t/w return later. Discussed with pts RN as well as Sylvia Barry APRN..
[2025-02-27] MEDS: vancomycin HCL 1,000 MG in 0.9 % Sodium Chloride 250 ML 270 MG IV ×2 (11:09→23:10)
[2025-02-27] MEDS: cloNIDine HCL 0.1 MG TABLET PO ×2 (11:14→19:59)
[2025-02-27] MEDS: Buprenorphine/Naloxone 12/3 mg FILM 1 FILM SUBLINGUAL (11:15)
[2025-02-27] MEDS: Aspirin Enteric Coated 81 MG TABLET.DR PO (11:15)
[2025-02-27] MEDS: Nicotine 21 MG PATCH.TD24 TRANSDERMA (11:16)
--- NOTE | 2025-02-27 12:09 | MHC.CLN ---
F/U PT TRANSFERRED TO MEDICAL FLOOR QUALIFIES FOR NON-SEVERE MALNUTRITION IN THE CONTEXT OF SOCIAL/BEHAVIORAL/ENVIRONMENTAL PO INTAKE 75% X3 MEALS NOTED WT UP 66KG BMI 20.9 WNL DIET ADVANCED TO REGULAR RECOMMEND SWITCHING SUPPLEMENT TO ENSURE BID TO INCREASE KCALS SUPP TO PROVIDE 700KCALS, 40G PROTEIN WITH 100% ACCEPTANCE MONITOR PO INTAKE AND ENCOURAGE SUPPLEMENT RD TO FOLLOW WEEKLY
--- NOTE | 2025-02-27 13:19 | HO.ADDICT_ITS ---
History of Present Illness Date of Service: 02/27/2025 Chief Complaint: Overdose, elevated troponin Reason for Consult: OUD--with overdose Sources of Information: patient interviewed and chart reviewed HPI Narrative: Patient is a 34 yo male with OUD, medically admitted following overdose with NSTEMI and acute respiratory failure Recently stepped down to med floor from ICU Patient seen in room 444. He is awake, alert, engaged in interview. He appears weak and ill. Some difficulty with conversation due to cough and overall fatigue. He states he believes he is in withdrawal. He reports body aches, back pain and sternal pain. T/W advised patient that withdrawal is unlikely as he has been receiving his suboxone since 02/23. Patient agreeable. Briefly discussed substance use prior to overdose He reports using approx 9 bundles of heroin/fentanyl daily He has been using since February 2024--prior to this he states he had been abstaining from substance use for 10 years. Since last february he has lost his housing, his job, and his and child are no longer in contact with him. He has been engaged in treatment for OUD via [facility] and dose has been 12mg BID Review of Systems Constitutional: Reports as per HPI, Reports body ache(s), Reports difficulty sleeping, Reports lethargy and Reports malaise Diagnostics Vital Signs (24Hr): Vital Signs - 24 hr 02/26/25 16:00 02/26/25 19:52 02/26/25 23:47 Temperature 99.3 F 97.5 F 99.7 F Pulse Rate 104 H 99 95 Respiratory Rate 20 18 18 Blood Pressure 116/77 121/75 119/77 Pulse Oximetry 94 94 97 Oxygen Delivery Method Nasal Cannula Oxymask Oxymask Oxygen Flow Rate 6 2 2 02/27/25 03:11 02/27/25 04:21 02/27/25 07:25 Temperature 102.5 F H 99 F 98.0 F Pulse Rate 103 H 93 Respiratory Rate 22 H 18 Blood Pressure 120/74 127/73 Pulse Oximetry 93 95 Oxygen Delivery Method Oxymask Oxymask Oxygen Flow Rate 2 3 02/27/25 11:14 Temperature 98.5 F Pulse Rate 107 H Respiratory Rate 18 Blood Pressure 126/77 Pulse Oximetry 95 Oxygen Delivery Method Oxymask Oxygen Flow Rate 3 BMI result Body Mass Index 20.9 Labs 02/26/25 08:15 02/27/25 06:49 Labs: Laboratory Results - last 48 hr 02/25/25 02/25/25 02/26/25 19:17 22:06 08:15 WBC 5.4 RBC 3.10 L Hgb 10.0 L Hct 28.3 L MCV 91.3 MCH 32.3 MCHC 35.3 RDW 13.4 Plt Count 53 L D MPV 12.0 Immature Gran % (Auto) 0.9 H Neut % (Auto) 60.0 Lymph % (Auto) 29.1 Barry % (Auto) 9.0 Eos % (Auto) 0.6 Baso % (Auto) 0.4 Lymph # (Auto) 1.6 Barry # (Auto) 0.5 Eos # (Auto) 0.0 Baso # (Auto) 0.0 Abs Immat Gran (auto) 0.05 H Absolute Neuts (auto) 3.2 Absolute Nucleated RBC 0.000 Nucleated RBC % (auto) 0.0 Smear Tech's Comments VERIFIED Hold Purple Top VBG pH VBG pCO2 VBG pO2 VBG HCO3 VBG O2 Saturation VBG Base Excess Sodium 136 Potassium 3.6 Chloride 108 Carbon Dioxide 19 L Anion Gap 13 BUN 9 Creatinine 0.68 Estim Creat Clear Calc 142.4 Estimated GFR > 60 Random Glucose 91 Lactic Acid 1.4 Calcium 8.1 L Phosphorus 2.2 L Magnesium 1.7 Total Bilirubin 2.4 H AST 79 H ALT 23 Alkaline Phosphatase 171 H Total Protein 6.4 L Albumin 3.6 Random Vancomycin 13.7 L 02/26/25 02/26/25 02/27/25 08:21 21:09 06:49 WBC RBC Hgb Hct MCV MCH MCHC RDW Plt Count MPV Immature Gran % (Auto) Neut % (Auto) Lymph % (Auto) Barry % (Auto) Eos % (Auto) Baso % (Auto) Lymph # (Auto) Barry # (Auto) Eos # (Auto) Baso # (Auto) Abs Immat Gran (auto) Absolute Neuts (auto) Absolute Nucleated RBC Nucleated RBC % (auto) Smear Tech's Comments Hold Purple Top SEE NOTE VBG pH 7.49 H VBG pCO2 29 VBG pO2 44 VBG HCO3 22 VBG O2 Saturation 72.0 VBG Base Excess 0.0 Sodium Potassium Chloride Carbon Dioxide Anion Gap BUN Creatinine 0.70 Estim Creat Clear Calc 137.5 Estimated GFR > 60 Random Glucose Lactic Acid Calcium Phosphorus Magnesium Total Bilirubin AST ALT Alkaline Phosphatase Total Protein Albumin Random Vancomycin 13.3 L Mental Status Exam Mental Status Exam Level of Consciousness: Awake and Lethargic Patient Behavior: Appropriate Affect Description: Anxious Medications Medications Current Medications Acetaminophen (Acetaminophen Oral Liquid 650 Mg/20.3 Ml Solution) 650 mg PO Q6H PRN PRN Reason: Fever >102F Last Admin: 02/27/25 03:21 Dose: 650 mg Aspirin (Aspirin Enteric Coated 81 Mg Tablet.Dr) 81 mg PO DAILY [facility] Last Admin: 02/27/25 11:15 Dose: 81 mg Buprenorphine/Naloxone (Buprenorphine/Naloxone 12/3 Mg Film) 1 film SUBLINGUAL TID [facility] Last Admin: 02/27/25 11:15 Dose: 1 film Clonidine HCl (Clonidine Hcl 0.1 Mg Tablet) 0.1 mg PO BID PRN; Protocol PRN Reason: anxiety Last Admin: 02/27/25 11:14 Dose: 0.1 mg Dicyclomine HCl (Dicyclomine Hcl 10 Mg Capsule) 10 mg PO QIDACHS PRN PRN Reason: abdominal pain, cramps Vancomycin HCl 1,000 mg/ (Sodium Chloride) 270 mls @ 270 mls/hr IV Q12H [facility] Last Infusion: 02/27/25 12:10 Dose: Infused Lidocaine (Lidocaine 4 % Patch Adh..Patch) 2 patch TRANSDERMA DAILY [facility]; Protocol Last Admin: 02/27/25 07:37 Dose: 2 patch Lidocaine (Lidocaine 4 % Patch Adh..Patch) 1 patch TRANSDERMA BEDTIME [facility]; Protocol Last Admin: 02/26/25 20:16 Dose: 1 patch Lorazepam (Lorazepam 0.5 Mg Tablet) 0.25 mg PO Q4H PRN PRN Reason: anxiety/restlessness Last Admin: 02/27/25 02:55 Dose: 0.25 mg Multi-Ingred Cream/Lotion/Oil/Oint (Artificial Tears Ophth Oint 3.5 Gm Tube) 1 appl EYE-BOTH TID PRN; Protocol PRN Reason: Dry Eyes Naloxone HCl (Naloxone Hcl 0.4 Mg/Ml Vial) 0.2 mg IVPUSH Q2M PRN PRN Reason: Excessive sedation or RR < 8 Nicotine (Nicotine 21 Mg Patch.Td24) 21 mg TRANSDERMA DAILY [facility] Last Admin: 02/27/25 11:16 Dose: 21 mg Ondansetron HCl (Ondansetron Hcl 4 Mg/2 Ml Vial) 4 mg IVPUSH Q6H PRN PRN Reason: Nausea and Vomiting Last Admin: 02/25/25 18:37 Dose: 4 mg Pharmacy Consult (Consult Rx Vancomycin Dosing) 1 each MISCELLANE DAILY PRN PRN Reason: Consult order Sodium Chloride (0.9 % Sodium Chloride Flush 3 Ml Syringe) 3 ml IVFLUSH QSHIFT [facility] Last Admin: 02/27/25 09:06 Dose: Not Given Trazodone HCl (Trazodone Hcl 50 Mg Tablet) 50 mg PO BEDTIME PRN PRN Reason: Insomnia Last Admin: 02/26/25 22:43 Dose: 50 mg Zolpidem Tartrate (Zolpidem Tartrate 5 Mg Tablet) 5 mg PO BEDTIME PRN PRN Reason: Insomnia Last Admin: 02/27/25 02:55 Dose: 5 mg Allergies Allergies Allergy/AdvReac Type Severity Reaction Status Date / Time No Known Allergies Allergy Verified 02/21/25 19:27 Assessment & Plan Assessment & Plan (1) Opioid use disorder, severe, dependence: Status: Acute Code(s): F11.20 - Opioid dependence, uncomplicated Assessment and Plan: * changed suboxone orders from 12mg TID to 8mg QID --can skip a dose if he is sleeping * discussed with attending, as sx are not withdrawal related * will continue to follow Total time managing care of this patient today __30__ minutes. PMFSH Past Medical History Medical History Polysubstance abuse Social History Social History Household Members: Unknown / Unable to assess Housing: Unknown / Unable to assess Comment: 1-1 sitter Patient Tobacco Use Status: Tobacco use Unknown Use of substances other than those prescribed or required for medical reasons: Unable to respond Currently Displaying Signs/Symptoms of Drug Intoxication Withdrawal: No Advance Directives: No Advance Directives Information Provided: No Recently lost weight without trying: Unsure Poor oral hygiene: Yes
--- NOTE | 2025-02-27 13:28 | MHC.CM.PN ---
Addendum entered by Rox Annona 02/27/25 15:44: This CM met with pt to discuss STR options, pt became very upset and requested to speak with the MD before speaking with this CM. MD spoke with pt, he is in agreement with discharging on Thursday or . This CM returned to meet with pt and discuss STR options, pt reviewing the options. Original Note: EMR reviewed and per MD rounds, pt is not medically cleared for discharge due to management of bacteremia, anticipating pt will be medically cleared for discharge by tomorrow. Pt will need STR for 4 weeks IV antibiotics, referrals placed, awaiting bed offer.
--- NOTE | 2025-02-27 13:54 | P.CNID_ITS ---
History of Present Illness Data of Consult Service Date: 02/27/25 Requesting physician: Bill Cade Primary Care Provider: Sandra Miner MD HPI Reason for consult: MRSA bacteremia He presents after being found in car by police. He had been injecting opioids and tells me he shares needles. He has MRSA bacteremia 02/22. He has no remarkable TTE. 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 sitter Patient Tobacco Use Status: Tobacco use Unknown Use of substances other than those prescribed or required for medical reasons: Unable to respond Currently Displaying Signs/Symptoms of Drug Intoxication Withdrawal: No Advance Directives: No Advance Directives Information Provided: No Recently lost weight without trying: Unsure Poor oral hygiene: Yes Meds Allergies Allergy/AdvReac Type Severity Reaction Status Date / Time No Known Allergies Allergy Verified 02/21/25 19:27 Active Medications: Current Medications Acetaminophen (Acetaminophen Oral Liquid 650 Mg/20.3 Ml Solution) 650 mg PO Q6H PRN PRN Reason: Fever >102F Last Admin: 02/27/25 03:21 Dose: 650 mg Aspirin (Aspirin Enteric Coated 81 Mg Tablet.Dr) 81 mg PO DAILY [facility] Last Admin: 02/27/25 11:15 Dose: 81 mg Buprenorphine/Naloxone (Buprenorphine/Naloxone 8/2 Mg Film) 1 film SUBLINGUAL 0800,1200,1600,2000 [facility] Clonidine HCl (Clonidine Hcl 0.1 Mg Tablet) 0.1 mg PO BID PRN; Protocol PRN Reason: anxiety Last Admin: 02/27/25 11:14 Dose: 0.1 mg Dicyclomine HCl (Dicyclomine Hcl 10 Mg Capsule) 10 mg PO QIDACHS PRN PRN Reason: abdominal pain, cramps Vancomycin HCl 1,000 mg/ (Sodium Chloride) 270 mls @ 270 mls/hr IV Q12H [facility] Last Infusion: 02/27/25 12:10 Dose: Infused Lidocaine (Lidocaine 4 % Patch Adh..Patch) 2 patch TRANSDERMA DAILY [facility]; Protocol Last Admin: 02/27/25 07:37 Dose: 2 patch Lidocaine (Lidocaine 4 % Patch Adh..Patch) 1 patch TRANSDERMA BEDTIME [facility]; Protocol Last Admin: 02/26/25 20:16 Dose: 1 patch Lorazepam (Lorazepam 0.5 Mg Tablet) 0.25 mg PO Q4H PRN PRN Reason: anxiety/restlessness Last Admin: 02/27/25 02:55 Dose: 0.25 mg Multi-Ingred Cream/Lotion/Oil/Oint (Artificial Tears Ophth Oint 3.5 Gm Tube) 1 appl EYE-BOTH TID PRN; Protocol PRN Reason: Dry Eyes Naloxone HCl (Naloxone Hcl 0.4 Mg/Ml Vial) 0.2 mg IVPUSH Q2M PRN PRN Reason: Excessive sedation or RR < 8 Nicotine (Nicotine 21 Mg Patch.Td24) 21 mg TRANSDERMA DAILY [facility] Last Admin: 02/27/25 11:16 Dose: 21 mg Ondansetron HCl (Ondansetron Hcl 4 Mg/2 Ml Vial) 4 mg IVPUSH Q6H PRN PRN Reason: Nausea and Vomiting Last Admin: 02/25/25 18:37 Dose: 4 mg Pharmacy Consult (Consult Rx Vancomycin Dosing) 1 each MISCELLANE DAILY PRN PRN Reason: Consult order Sodium Chloride (0.9 % Sodium Chloride Flush 3 Ml Syringe) [facility] Last Admin: 02/27/25 09:06 Dose: Not Given Trazodone HCl (Trazodone Hcl 50 Mg Tablet) 50 mg PO BEDTIME PRN PRN Reason: Insomnia Last Admin: 02/26/25 22:43 Dose: 50 mg Zolpidem Tartrate (Zolpidem Tartrate 5 Mg Tablet) 5 mg PO BEDTIME PRN PRN Reason: Insomnia Last Admin: 02/27/25 02:55 Dose: 5 mg Home Medications ?Medication ?Instructions ?Recorded ?Confirmed ?Last Taken ?Type buprenorphine 12 mg-naloxone 3 mg 1 film sublingual BID 02/22/25 02/22/25 Unknown History sublingual film (Suboxone) clonidine HCl 0.1 mg tablet 0.1 mg PO BID PRN anxiety 02/22/25 02/22/25 Unknown History Physical Exam 2 Vital Signs: Vital Signs: Last Vital Signs Temp 98.5 F 02/27/25 11:14 Pulse 107 H 02/27/25 11:14 Resp 18 02/27/25 11:14 BP 126/77 02/27/25 11:14 Pulse Ox 95 02/27/25 11:14 O2 Del Method Oxymask 02/27/25 11:14 O2 Flow Rate 3 02/27/25 11:14 FiO2 21 02/23/25 09:00 BMI result Body Mass Index 20.9 Const: General: cooperative HEENT: Head: Yes normal to inspection Face and sinus: Yes normal facial exam Mouth: Normal oral and palatal mucosa present Teeth and gingiva: d entition normal Eyes: General: appearance normal, both eyes and all related structures P upils: Equal, round and reactive pupils present Resp: Effort & Inspection: normal respiratory effort Cardio: Rate: regular rate Rhythm: regular rhythm GI: Palpation (GI): Soft to palpation and nontender : General: Yes no CVA tenderness Back/Spine/Pelvis: Back: no CVA tenderness Skin: General skin exam: no rashes or lesions noted Neuro: General: moves all extremities Cranial nerves: Yes Equal, round and reactive pupils present Extrem: General: Yes normal to inspection Psych: Appearance: grossly normal Results Labs 02/26/25 08:15 02/27/25 06:49 Labs: BMP 02/27/25 06:49 Creatinine 0.70 Microbiology Microbiology Results: Microbiology 02/25/25 19:17 Blood - Venous Blood Culture - Preliminary No growth after 24 hours. 02/25/25 19:17 Blood - Venous Blood Culture - Preliminary No growth after 24 hours. 02/24/25 09:37 Blood - Venous Blood Culture - Preliminary No growth after 48 hours. 02/24/25 09:36 Blood - Venous Blood Culture - Preliminary No growth after 48 hours. 02/21/25 19:48 Blood - Venous Blood Culture - Final Methicillin Res Staph Aureus 02/21/25 19:48 Blood - Venous Blood Culture - Final Methicillin Res Staph Aureus 02/21/25 21:17 Urine clean catch - Clean Catch Midstream Urine Culture - Final No growth. Assessment and Plan (1) NSTEMI (non-ST elevated myocardial infarction): Status: Acute (2) Toxic encephalopathy: Status: Acute (3) MRSA bacteremia: Status: Acute (4) Acute alteration in mental status: Status: Acute (5) Polysubstance abuse: Status: Acute Plan He has MRSA bacteremia,clearing. He has been on Vancomycin and now is also on Suboxone. He doesnt know status of HIV but thinks Hepatitis C is active. Would continue 4 weeks Vancomycin from first negative blood culture. Weekly Vancomycin and creatinine levels. Continue addiction treatment. Check Hepatitis C viral load and HIV.
[2025-02-27] MEDS: Famotidine 20 MG TABLET PO (14:42)
[2025-02-27] MEDS: Ibuprofen 400 MG TABLET PO ×2 (14:42→17:28)
[2025-02-27] MEDS: 0.9 % Sodium Chloride Flush 3 ML SYRINGE IVFLUSH ×2 (14:43→23:11)
[2025-02-27] MEDS: Acetaminophen Oral Liquid 650 MG/20.3 ML SOLUTION 975 MG PO ×2 (15:57→23:03)
--- NOTE | 2025-02-27 16:44 | HO.PM.IMPN ---
Subjective Subjective Date of Service: 02/27/25 Interval History: Seen and evaluated this morning no fever or chills cultures negative reporting pain and weakness still on O2 supplement Review of Systems Review of Systems: Yes all other systems are reviewed and are negative Physical Exam Vital Signs: Vital Signs: Last Vital Signs Temp 98.6 F 02/27/25 15:28 Pulse 106 H 02/27/25 15:28 Resp 17 02/27/25 15:28 BP 118/80 02/27/25 15:28 Pulse Ox 92 02/27/25 15:28 O2 Del Method Oxymask 02/27/25 15:28 O2 Flow Rate 3 02/27/25 15:28 FiO2 21 02/23/25 09:00 BMI result Body Mass Index 20.9 Const: Other: Constitutional : Awake, interactive, not in distress Neck : Normal inspection, Supple Cardiovascular : RRR, no JVP, trace lower extremity edema Respiratory : good bilateral air entry, no crackles, wheezes or rhonchi Gastrointestinal: soft, lax, Normal bowel sounds, Non tender Skin : Warm, Dry, left hand dorsal ulcer with no erythema Neurological : Alert & oriented x3, No focal deficit Objective Data Active Medications Acetaminophen (Acetaminophen Oral Liquid 650 Mg/20.3 Ml Solution) 975 mg PO QSHIFT [facility] Last Admin: 02/27/25 15:57 Dose: 975 mg Documented By: JENS Aspirin (Aspirin Enteric Coated 81 Mg Tablet.Dr) 81 mg PO DAILY [facility] Last Admin: 02/27/25 11:15 Dose: 81 mg Documented By: JENS Buprenorphine/Naloxone (Buprenorphine/Naloxone 8/2 Mg Film) 1 film SUBLINGUAL 0800,1200,1600,2000 [facility] Clonidine HCl (Clonidine Hcl 0.1 Mg Tablet) 0.1 mg PO BID PRN; Protocol PRN Reason: anxiety Last Admin: 02/27/25 11:14 Dose: 0.1 mg Documented By: JENS Dicyclomine HCl (Dicyclomine Hcl 10 Mg Capsule) 10 mg PO QIDACHS PRN PRN Reason: abdominal pain, cramps Famotidine (Famotidine 20 Mg Tablet) 20 mg PO DAILY [facility] Last Admin: 02/27/25 14:42 Dose: 20 mg Documented By: JENS Vancomycin HCl 1,000 mg/ (Sodium Chloride) 270 mls @ 270 mls/hr IV Q12H [facility] Last Infusion: 02/27/25 12:10 Dose: Infused Documented By: JENS Ibuprofen (Ibuprofen 400 Mg Tablet) 400 mg PO TIDWM [facility] Last Admin: 02/27/25 14:42 Dose: 400 mg Documented By: JENS Lidocaine (Lidocaine 4 % Patch Adh..Patch) 2 patch TRANSDERMA DAILY [facility]; Protocol Last Admin: 02/27/25 07:37 Dose: 2 patch Documented By: JENS Lidocaine (Lidocaine 4 % Patch Adh..Patch) 1 patch TRANSDERMA BEDTIME [facility]; Protocol Last Admin: 02/26/25 20:16 Dose: 1 patch Documented By: KHADIJAH Lorazepam (Lorazepam 0.5 Mg Tablet) 0.25 mg PO Q4H PRN PRN Reason: anxiety/restlessness Last Admin: 02/27/25 15:55 Dose: 0.25 mg Documented By: JENS Multi-Ingred Cream/Lotion/Oil/Oint (Artificial Tears Ophth Oint 3.5 Gm Tube) 1 appl EYE-BOTH TID PRN; Protocol PRN Reason: Dry Eyes Naloxone HCl (Naloxone Hcl 0.4 Mg/Ml Vial) 0.2 mg IVPUSH Q2M PRN PRN Reason: Excessive sedation or RR < 8 Nicotine (Nicotine 21 Mg Patch.Td24) 21 mg TRANSDERMA DAILY [facility] Last Admin: 02/27/25 11:16 Dose: 21 mg Documented By: JENS Ondansetron HCl (Ondansetron Hcl 4 Mg/2 Ml Vial) 4 mg IVPUSH Q6H PRN PRN Reason: Nausea and Vomiting Last Admin: 02/25/25 18:37 Dose: 4 mg Documented By: RANDAL Oxycodone HCl (Oxycodone Hcl Immed Release 5 Mg Tablet) 5 mg PO Q6H PRN PRN Reason: Pain, Severe (Pain Scale 7-10) Pharmacy Consult (Consult Rx Vancomycin Dosing) 1 each MISCELLANE DAILY PRN PRN Reason: Consult order Sodium Chloride (0.9 % Sodium Chloride Flush 3 Ml Syringe) 3 ml IVFLUSH QSHIFT [facility] Last Admin: 02/27/25 14:43 Dose: 3 ml Documented By: JENS Trazodone HCl (Trazodone Hcl 50 Mg Tablet) 50 mg PO BEDTIME PRN PRN Reason: Insomnia Last Admin: 02/26/25 22:43 Dose: 50 mg Documented By: KHADIJAH Zolpidem Tartrate (Zolpidem Tartrate 5 Mg Tablet) 5 mg PO BEDTIME PRN PRN Reason: Insomnia Last Admin: 02/27/25 02:55 Dose: 5 mg Documented By: KHADIJAH Labs 02/26/25 08:15 02/27/25 06:49 Labs: Laboratory Results - last 24 hr 02/26/25 02/27/25 21:09 06:49 Absolute Retic Cancelled Percent Retic Cancelled Immature Retic Fraction Cancelled Retic Hgb Equivalent Cancelled Hold Purple Top SEE NOTE Estim Creat Clear Calc 137.5 Estimated GFR > 60 Random Vancomycin 13.3 L Microbiology Microbiology Results: Microbiology 02/25/25 19:17 Blood Culture - Preliminary Blood - Venous No growth after 24 hours. 02/25/25 19:17 Blood Culture - Preliminary Blood - Venous No growth after 24 hours. Assessment and Plan (1) NSTEMI (non-ST elevated myocardial infarction): Status: Acute (2) Toxic encephalopathy: Status: Acute (3) MRSA bacteremia: Status: Acute (4) Acute alteration in mental status: Status: Acute Plan A 34-year-old gentleman admitted with shock and staphylococcal bacteremia on a background of polysubstance abuse with likely cocaine induced vasospasm resulting in acute kidney injury and NSTEMI, also noted to have small-bowel obstruction Fever in MRSA bacteremia complicated by septic shock on presentation Continue Vancomycin follow repeat cultures , negative ID consult PICC placement once clear ACute Toxic encephalopathy likely secondary to polysubstance abuse and overdose, on presentation CT head with no acute findings back to baseline NSTEMI likely septic\ischemic Cardiology service appreciated 2D echocardiogram with systolic dysfunction and wall motion abnormalities started on heparin drip, but had to stop it secondary to worsening thrombocytopenia while in ICU Cardio asked to start Aspirin if remains >50 Acute respiratory failure secondary to polysubstance abuse required ventilatory support, extubated 02/24/2025. Wean down supplemental oxygen as tolerated Thrombocytopenia likely sepsis related Improving Cardio asked to start Aspirin if remains >[address] abdomen with evidence of small-bowel obstruction. General surgery service care appreciated. Acute renal failure on background of polysubstance abuse and shock resolved IVDU On Suboxone Addiction team eval Prophylaxis: Pneumatic compression Diet: Regular The patient will need inpatient stay for IV antibiotics for bacteremia pending resolution of fever, weaning down O2 as tolerated and follow Quality Stroke Does the patient have a stroke diagnosis?: No VTE Prior VTE?: No VTE Risk Level:: Medical - moderate - high VTE Device Contraindication: N/A - Device Ordered VTE Drug Contraindication: N/A - Med Ordered
[2025-02-27 21:37] LABS: Vancomycin Random 14.3 mcg/mL (15-20)
--- NOTE | 2025-02-27 21:55 | HE.PHANOTE ---
re vanco dosing continue with same dose and recheck level 03/01 @2100 to ensure safe dosing. continue daily renal monitoring.
[2025-02-27] MEDS: Buprenorphine/Naloxone 8/2 mg FILM 1 FILM SUBLINGUAL (22:58)
[2025-02-27] MEDS: Lidocaine 4 % Patch ADH..PATCH 1 PATCH TRANSDERMA (22:58)
[2025-02-27] MEDS: traZODone HCL 50 MG TABLET PO (23:02)
[2025-02-28 03:52] VITALS: BP 124/85; PULSE 85; RESP 16; TEMP 37.1; O2SAT 95
--- NOTE | 2025-02-28 04:02 | PC.NURSE ---
patient bed visibly soiled, RN and TESTING ENGINEER attempted to change linen and clean patient. patient adamantly refusing, RN educated patient on skin integrity and risk of skin damage when exposed to moisture, patient continuing to refuse
[2025-02-28 06:00] VITALS: BMI 21.2
[2025-02-28] MEDS: oxyCODONE HCl Immed Release 5 MG TABLET PO ×3 (06:29→23:21)
[2025-02-28 07:08] LABS: MANUAL DIFF FLAG NO
[2025-02-28 07:10] LABS: Basophils Percent Auto 0.8 % (0-2); Eosinophils Absolute Auto 0.1 X10*3/uL (0.0-0.4); Eosinophils Percent Auto 1.9 % (0-4); Hemoglobin 10.7 g/dl (14.0-18.0); Imm Gran Abs Auto 0.05 X10*3/uL (0.00-0.03); Lymphocytes Absolute Auto 1.6 X10*3/uL (1.2-4.9); Lymphocytes Percent Auto 29.6 % (20-40); Mean Corpuscular HGB Conc 34.5 g/dl (31.0-36.0); Mean Corpuscular Hemoglobin 31.7 pg (27.0-33.0); Mean Corpuscular Volume 91.7 fL (80.0-98.0); Mean Platelet Volume 11.2 fL (9.4-12.4); Monocytes Absolute Auto 0.4 X10*3/uL (0.1-1.2); Monocytes Percent Auto 7.6 % (2-11); Neutrophils Absolute Auto 3.1 x10*3/uL (2.0-8.3); Neutrophils Percent Auto 59.1 % (45-73); Red Blood Count 3.38 X10*6/uL (4.60-5.80); Red Cell Distribution Width 13.2 % (11.0-16.0); White Blood Count 5.2 X10*3/uL (4.8-10.8)
[2025-02-28 07:11] LABS: Platelet Count 80 X10*3/uL (160-400)
[2025-02-28 07:30] LABS: Anion Gap 11 (12-20); Blood Urea Nitrogen 12 mg/dL (9-16); Calcium 8.5 mg/dL (8.4-10.2); Carbon Dioxide 22 mmol/L (22-29); Chloride 109 mmol/L (96-108); Creatinine Clr Calc Pharmacy 150.5; Estimated Glomerular Filt Rate > 60; Glucose Random 101 mg/dL (60-115); Potassium 4.1 mmol/L (3.3-5.1); Sodium 138 mmol/L (135-145)
[2025-02-28 07:54] LABS: HIV AB/AG Nonreactive (Nonreactive); HIV Num 1 0.11 S/CO (0.00-0.99)
[2025-02-28] MEDS: cloNIDine HCL 0.1 MG TABLET PO ×2 (09:33→23:22)
[2025-02-28] MEDS: Ibuprofen 400 MG TABLET PO ×3 (09:34→17:30)
[2025-02-28] MEDS: Furosemide 20 MG/2 ML VIAL 40 MG IVPUSH (09:34)
[2025-02-28] MEDS: Aspirin Enteric Coated 81 MG TABLET.DR PO (09:34)
[2025-02-28] MEDS: Acetaminophen Oral Liquid 650 MG/20.3 ML SOLUTION 975 MG PO ×2 (09:35→20:01)
[2025-02-28] MEDS: methylPREDNISolone Sod Succ 40 MG/ML VIAL IVPUSH (09:35)
[2025-02-28] MEDS: Buprenorphine/Naloxone 8/2 mg FILM 1 FILM SUBLINGUAL ×3 (09:35→23:23)
[2025-02-28] MEDS: Lidocaine 4 % Patch ADH..PATCH 2 PATCH TRANSDERMA (09:36)
[2025-02-28] MEDS: Nicotine 21 MG PATCH.TD24 TRANSDERMA (09:36)
[2025-02-28] MEDS: 0.9 % Sodium Chloride Flush 3 ML SYRINGE IVFLUSH (09:37)
--- NOTE | 2025-02-28 11:02 | MHC.CM.PN ---
Addendum entered by Ivett Huffman 02/28/25 14:04: CM checked back with Patient for his choice of SNF; he was on the phone and indicated that he had more calls to make and was planning to speak with his Parents tonight. CM will check back with Patient in the AM. Addendum entered by Ivett Huffman 02/28/25 13:30: There are no further bed offers; CM met with Patient and provided him with the [facility] print out of ratings for the 3 accepting facilities. CM will check back with Patient for his facility of choice. CM will follow. Original Note: CM met with Patient at bedside to discuss dc planning. CM discussed the 3 facilities that have accepted Patient ([facility], [facility] and [facility]); Patient is requesting referrals be made to a [facility] SNF (unsure of name/CM found 5 SNFs in [place] and referrals have been made). CM will follow.
[2025-02-28 11:36] VITALS: BP 130/82; PULSE 84; RESP 18; TEMP 37.2; O2SAT 92
--- NOTE | 2025-02-28 12:58 | HO.PICC ---
PICC Line Insertion NPICC Diagnosis: Bacteremia Indication: skilled nursing ABT Pertinent Labs: reviewed Technique: Following informed consent including risks, benefits and alternatives and using sterile technique including cap and mask, sterile gown, glove and drape, the left arm was prepped and draped in the usual sterile fashion of full barrier technique with CHG. Following completion of [place] Protocol the skin and soft tissues were anesthetized with 1% Lidocaine plain. Using ultrasound guidance, left brachial vein access was obtained. Over an 0.018 wire through peel-away sheath, a 4FR single lumen PASV PICC line was positioned. Catheter length is 34 cm internal length, 0cm external length, for a total trimmed length of 34cm. The procedure was performed in 272. Tip verification was performed by Aminata Polo with Sherlock 3CG. Tip located in SVC. Ultrasound was used to document vein patency and for needle entry. A formal ultrasound picture and cardiac rhythm strip was recorded. Vascular Operator has released the line for use and it is currently dressed with a StatLock, Tegaderm, and CHG disc. Verification has been performed for blood return and line patency. Arm Circumference: 26 cm Equipment: [employer] [place] PowerPICC SOLO catheter with Sherlock 3CG Tip Catheter Type: 4FR single lumen PASV Lot #: [id number]
[2025-02-28] MEDS: vancomycin HCL 1,000 MG in 0.9 % Sodium Chloride 250 ML 270 MG IV ×2 (13:15→23:09)
[2025-02-28] MEDS: Dicyclomine HCl 10 MG CAPSULE PO (13:29)
[2025-02-28] MEDS: LORazepam 0.5 MG TABLET 0.25 MG PO ×3 (13:35→23:20)
--- NOTE | 2025-02-28 14:49 | HO.ADDICTPRO ---
Subjective Subjective Date of Service: 02/28/25 Reason For Visit: Overdose, elevated troponin Interim History: Patient seen in follow up for OUD and suboxone dose changes Patient overall presentation much improved from yesterday, today sitting up in bed awake, alert, no SOB noted. MAR reviewed, patient declined dose of suboxone yesterday and declined afternoon dose today. one time PRN oxycodone also administered. Patient presented as anxious, irritable, slightly demanding. Initially did not recall medication changes, then after some prompting remembered, however remembered incorrect dosing (thought he was getting 2mg 4x/day) Aside from irritability and anxiety, he appeared comfortable and denied any withdrawal sx. He was very focused on reaching his parents while t/w went to visit, and spent much of the time trying to call them Review of Systems Constitutional: Reports as per HPI and Reports difficulty sleeping Mental Status Exam Mental Status Exam Level of Consciousness: Awake and Alert Patient Behavior: Anxious (irritable ) Affect Description: Hostile Speech Pattern: Clear and Pressured Judgement: Fair Diagnostics Vital Signs (24Hr): Vital Signs - 24 hr 02/27/25 15:28 02/27/25 19:25 02/27/25 23:23 Temperature 98.6 F 98.3 F 97.6 F Pulse Rate 106 H 86 87 Respiratory Rate 17 16 18 Blood Pressure 118/80 119/67 103/68 Pulse Oximetry 92 95 97 Oxygen Delivery Method Oxymask Oxymask Oxymask Oxygen Flow Rate 3 3 3 02/28/25 03:52 02/28/25 11:36 Temperature 98.7 F 98.9 F Pulse Rate 85 84 Respiratory Rate 16 18 Blood Pressure 124/85 130/82 Pulse Oximetry 95 92 Oxygen Delivery Method Oxymask Oxymask Oxygen Flow Rate 3 3 BMI result Body Mass Index 21.2 Labs 02/28/25 07:00 02/28/25 07:00 Labs: Laboratory Results - last 48 hr 02/26/25 02/27/25 02/27/25 21:09 06:49 20:49 WBC RBC Hgb Hct MCV MCH MCHC RDW Plt Count MPV Immature Gran % (Auto) Neut % (Auto) Lymph % (Auto) Lee % (Auto) Eos % (Auto) Baso % (Auto) Lymph # (Auto) Lee # (Auto) Eos # (Auto) Baso # (Auto) Abs Immat Gran (auto) Absolute Neuts (auto) Absolute Nucleated RBC Nucleated RBC % (auto) Absolute Retic Cancelled Percent Retic Cancelled Immature Retic Fraction Cancelled Retic Hgb Equivalent Cancelled Hold Purple Top SEE NOTE Sodium Potassium Chloride Carbon Dioxide Anion Gap BUN Creatinine 0.70 Estim Creat Clear Calc 137.5 Estimated GFR > 60 Random Glucose Calcium Random Vancomycin 13.3 L 14.3 L HIV 1&2 Ab/P24 Ag 4thGn 02/28/25 07:00 WBC 5.2 RBC 3.38 L Hgb 10.7 L Hct 31.0 L MCV 91.7 MCH 31.7 MCHC 34.5 RDW 13.2 Plt Count 80 L D MPV 11.2 Immature Gran % (Auto) 1.0 H Neut % (Auto) 59.1 Lymph % (Auto) 29.6 Lee % (Auto) 7.6 Eos % (Auto) 1.9 Baso % (Auto) 0.8 Lymph # (Auto) 1.6 Lee # (Auto) 0.4 Eos # (Auto) 0.1 Baso # (Auto) 0.0 Abs Immat Gran (auto) 0.05 H Absolute Neuts (auto) 3.1 Absolute Nucleated RBC 0.000 Nucleated RBC % (auto) 0.0 Absolute Retic Percent Retic Immature Retic Fraction Retic Hgb Equivalent Hold Purple Top Sodium 138 Potassium 4.1 Chloride 109 H Carbon Dioxide 22 Anion Gap 11 L BUN 12 Creatinine 0.65 Estim Creat Clear Calc 150.5 Estimated GFR > 60 Random Glucose 101 Calcium 8.5 Random Vancomycin HIV 1&2 Ab/P24 Ag 4thGn Nonreactive Imaging Radiology Impressions: ITS Impressions Chest X-Ray 02/27/25 15:40 IMPRESSION: Diffuse bilateral airspace opacities throughout the right lung and at the left lung base, with a small additional airspace opacity in the left midlung zone. There are associated small bilateral pleural effusions. Findings may represent diffuse pneumonia or asymmetric pulmonary edema. Electronically signed by: Jerome Mustafa MD 02/27/2025 03:54 PM EDT Medications Medications Current Medications Acetaminophen (Acetaminophen Oral Liquid 650 Mg/20.3 Ml Solution) [facility] Admin: 02/28/25 09:35 Dose: 975 mg Aspirin (Aspirin Enteric Coated 81 Mg Tablet.) 81 mg PO DAILY [facility] Last Admin: 02/28/25 09:34 Dose: 81 mg Buprenorphine/Naloxone (Buprenorphine/Naloxone 8/2 Mg Film) 1 film SUBLINGUAL 0800,1200,1600,2000 [facility] Last Admin: 02/28/25 09:35 Dose: 1 film Clonidine HCl (Clonidine Hcl 0.1 Mg Tablet) 0.1 mg PO BID PRN; Protocol PRN Reason: anxiety Last Admin: 02/28/25 09:33 Dose: 0.1 mg Dicyclomine HCl (Dicyclomine Hcl 10 Mg Capsule) 10 mg PO QIDACHS PRN PRN Reason: abdominal pain, cramps Last Admin: 02/28/25 13:29 Dose: 10 mg Furosemide (Furosemide 20 Mg/2 Ml Vial) 40 mg IVPUSH DAILY [facility]; Protocol Last Admin: 02/28/25 09:34 Dose: 40 mg Vancomycin HCl 1,000 mg/ (Sodium Chloride) 270 mls @ 270 mls/hr IV Q12H [facility] Last Admin: 02/28/25 13:15 Dose: 270 mls/hr Ibuprofen (Ibuprofen 400 Mg Tablet) 400 mg PO TIDWM [facility] Last Admin: 02/28/25 13:16 Dose: 400 mg Lidocaine (Lidocaine 4 % Patch Adh..Patch) 2 patch TRANSDERMA DAILY [facility]; Protocol Last Admin: 02/28/25 09:36 Dose: 2 patch Lidocaine (Lidocaine 4 % Patch Adh..Patch) 1 patch TRANSDERMA BEDTIME [facility]; Protocol Last Admin: 02/27/25 22:58 Dose: 1 patch Lorazepam (Lorazepam 0.5 Mg Tablet) 0.25 mg PO Q4H PRN PRN Reason: anxiety/restlessness Last Admin: 02/28/25 13:35 Dose: 0.25 mg Methylprednisolone Sodium Succinate (Methylprednisolone Sod Succ 40 Mg/Ml Vial) 40 mg IVPUSH Q24H [facility] Last Admin: 02/28/25 09:35 Dose: 40 mg Multi-Ingred Cream/Lotion/Oil/Oint (Artificial Tears Ophth Oint 3.5 Gm Tube) 1 appl EYE-BOTH TID PRN; Protocol PRN Reason: Dry Eyes Naloxone HCl (Naloxone Hcl 0.4 Mg/Ml Vial) 0.2 mg IVPUSH Q2M PRN PRN Reason: Excessive sedation or RR < 8 Nicotine (Nicotine 21 Mg Patch.Td24) 21 mg TRANSDERMA DAILY [facility] Last Admin: 02/28/25 09:36 Dose: 21 mg Ondansetron HCl (Ondansetron Hcl 4 Mg/2 Ml Vial) 4 mg IVPUSH Q6H PRN PRN Reason: Nausea and Vomiting Last Admin: 02/25/25 18:37 Dose: 4 mg Oxycodone HCl (Oxycodone Hcl Immed Release 5 Mg Tablet) 5 mg PO Q6H PRN PRN Reason: Pain, Severe (Pain Scale 7-10) Last Admin: 02/28/25 06:29 Dose: 5 mg Pharmacy Consult (Consult Rx Vancomycin Dosing) 1 each MISCELLANE DAILY PRN PRN Reason: Consult order Sodium Chloride (0.9 % Sodium Chloride Flush 3 Ml Syringe) [facility] Last Admin: 02/28/25 09:37 Dose: 3 ml Sodium Chloride (0.9 % Sodium Chloride Flush 10 Ml Syringe) 5 ml IVFLUSH [facility] Trazodone HCl (Trazodone Hcl 50 Mg Tablet) 50 mg PO BEDTIME PRN PRN Reason: Insomnia Last Admin: 02/27/25 23:02 Dose: 50 mg Zolpidem Tartrate (Zolpidem Tartrate 5 Mg Tablet) 5 mg PO BEDTIME PRN PRN Reason: Insomnia Last Admin: 02/27/25 23:02 Dose: 5 mg Allergies Allergies Allergy/AdvReac Type Severity Reaction Status Date / Time No Known Allergies Allergy Verified 02/21/25 19:27 Assessment & Plan Assessment & Plan (1) Opioid use disorder, severe, dependence: Status: Acute Code(s): F11.20 - Opioid dependence, uncomplicated Assessment and Plan: patient has been declining suboxone doses yesterday and today --will adjust dosing to 8mg BID with 8mg PRN dose appearing quite anxious, has BID PRN Clonidine. If tolerated can increase to TID dosing pending d/c to SNF for IV abx Total time managing care of this patient today __25__ minutes.
--- NOTE | 2025-02-28 14:58 | HO.PM.IMPN ---
Subjective Subjective Date of Service: 02/28/25 Interval History: Seen and evaluated this morning no fever or chills cultures negative , PICC Line placed anxious and restless on occasions still on O2 supplement Review of Systems Review of Systems: Yes all other systems are reviewed and are negative Physical Exam Vital Signs: Vital Signs: Last Vital Signs Temp 98.9 F 02/28/25 11:36 Pulse 84 02/28/25 11:36 Resp 18 02/28/25 11:36 BP 130/82 02/28/25 11:36 Pulse Ox 92 02/28/25 11:36 O2 Del Method Oxymask 02/28/25 11:36 O2 Flow Rate 3 02/28/25 11:36 FiO2 21 02/23/25 09:00 BMI result Body Mass Index 21.2 Const: Other: Constitutional : Awake, interactive, mildly anxious, not in distress Neck : Normal inspection, Supple Cardiovascular : RRR, no JVP, trace lower extremity edema Respiratory : good bilateral air entry, no crackles, wheezes or rhonchi Gastrointestinal: soft, lax, Normal bowel sounds, Non tender Skin : Warm, Dry, left hand dorsal ulcer with no erythema Neurological : Alert & oriented x3, No focal deficit Objective Data Active Medications Acetaminophen (Acetaminophen Oral Liquid 650 Mg/20.3 Ml Solution) 975 mg PO QSHIFT [facility] Last Admin: 02/28/25 09:35 Dose: 975 mg Documented By: YOCASTA Aspirin (Aspirin Enteric Coated 81 Mg Tablet.) 81 mg PO DAILY [facility] Last Admin: 02/28/25 09:34 Dose: 81 mg Documented By: YOCASTA Buprenorphine/Naloxone (Buprenorphine/Naloxone 8/2 Mg Film) 1 film SUBLINGUAL 0800,1200,1600,2000 [facility] Last Admin: 02/28/25 09:35 Dose: 1 film Clonidine HCl (Clonidine Hcl 0.1 Mg Tablet) 0.1 mg PO BID PRN; Protocol PRN Reason: anxiety Last Admin: 02/28/25 09:33 Dose: 0.1 mg Documented By: YOCASTA Dicyclomine HCl (Dicyclomine Hcl 10 Mg Capsule) 10 mg PO QIDACHS PRN PRN Reason: abdominal pain, cramps Last Admin: 02/28/25 13:29 Dose: 10 mg Documented By: YOCASTA Furosemide (Furosemide 20 Mg/2 Ml Vial) 40 mg IVPUSH DAILY [facility]; Protocol Last Admin: 02/28/25 09:34 Dose: 40 mg Documented By: YOCASTA Vancomycin HCl 1,000 mg/ (Sodium Chloride) 270 mls @ 270 mls/hr IV Q12H [facility] Last Admin: 02/28/25 13:15 Dose: 270 mls/hr Documented By: YOCASTA Ibuprofen (Ibuprofen 400 Mg Tablet) 400 mg PO TIDWM [facility] Last Admin: 02/28/25 13:16 Dose: 400 mg Documented By: YOCASTA Lidocaine (Lidocaine 4 % Patch Adh..Patch) 2 patch TRANSDERMA DAILY [facility]; Protocol Last Admin: 02/28/25 09:36 Dose: 2 patch Documented By: YOCASTA Lidocaine (Lidocaine 4 % Patch Adh..Patch) 1 patch TRANSDERMA BEDTIME [facility]; Protocol Last Admin: 02/27/25 22:58 Dose: 1 patch Documented By: BREANA Lorazepam (Lorazepam 0.5 Mg Tablet) 0.25 mg PO Q4H PRN PRN Reason: anxiety/restlessness Last Admin: 02/28/25 13:35 Dose: 0.25 mg Documented By: YOCASTA Methylprednisolone Sodium Succinate (Methylprednisolone Sod Succ 40 Mg/Ml Vial) 40 mg IVPUSH Q24H [facility] Last Admin: 02/28/25 09:35 Dose: 40 mg Documented By: YOCASTA Multi-Ingred Cream/Lotion/Oil/Oint (Artificial Tears Ophth Oint 3.5 Gm Tube) 1 appl EYE-BOTH TID PRN; Protocol PRN Reason: Dry Eyes Naloxone HCl (Naloxone Hcl 0.4 Mg/Ml Vial) 0.2 mg IVPUSH Q2M PRN PRN Reason: Excessive sedation or RR < 8 Nicotine (Nicotine 21 Mg Patch.Td24) 21 mg TRANSDERMA DAILY [facility] Last Admin: 02/28/25 09:36 Dose: 21 mg Documented By: YOCASTA Ondansetron HCl (Ondansetron Hcl 4 Mg/2 Ml Vial) 4 mg IVPUSH Q6H PRN PRN Reason: Nausea and Vomiting Last Admin: 02/25/25 18:37 Dose: 4 mg Documented By: RANDAL Oxycodone HCl (Oxycodone Hcl Immed Release 5 Mg Tablet) 5 mg PO Q6H PRN PRN Reason: Pain, Severe (Pain Scale 7-10) Last Admin: 02/28/25 06:29 Dose: 5 mg Documented By: BREANA Pharmacy Consult (Consult Rx Vancomycin Dosing) 1 each MISCELLANE DAILY PRN PRN Reason: Consult order Sodium Chloride (0.9 % Sodium Chloride Flush 3 Ml Syringe) 3 ml IVFLUSH [facility] Last Admin: 02/28/25 09:37 Dose: 3 ml Documented By: YOCASTA Sodium Chloride (0.9 % Sodium Chloride Flush 10 Ml Syringe) 5 ml IVFLUSH [facility] Trazodone HCl (Trazodone Hcl 50 Mg Tablet) 50 mg PO BEDTIME PRN PRN Reason: Insomnia Last Admin: 02/27/25 23:02 Dose: 50 mg Documented By: BREANA Zolpidem Tartrate (Zolpidem Tartrate 5 Mg Tablet) 5 mg PO BEDTIME PRN PRN Reason: Insomnia Last Admin: 02/27/25 23:02 Dose: 5 mg Documented By: BREANA Labs 02/28/25 07:00 02/28/25 07:00 Labs: Laboratory Results - last 24 hr 02/27/25 02/28/25 20:49 07:00 MCV 91.7 MCH 31.7 MCHC 34.5 RDW 13.2 Plt Count 80 L D MPV 11.2 Immature Gran % (Auto) 1.0 H Neut % (Auto) 59.1 Lymph % (Auto) 29.6 Donley % (Auto) 7.6 Eos % (Auto) 1.9 Baso % (Auto) 0.8 Lymph # (Auto) 1.6 Donley # (Auto) 0.4 Eos # (Auto) 0.1 Baso # (Auto) 0.0 Abs Immat Gran (auto) 0.05 H Absolute Neuts (auto) 3.1 Absolute Nucleated RBC 0.000 Nucleated RBC % (auto) 0.0 Anion Gap 11 L Estim Creat Clear Calc 150.5 Estimated GFR > 60 Random Glucose 101 Calcium 8.5 Random Vancomycin 14.3 L HIV 1&2 Ab/P24 Ag 4thGn Nonreactive Microbiology Microbiology Results: Microbiology 02/25/25 19:17 Blood Culture - Preliminary Blood - Venous No growth after 48 hours. 02/25/25 19:17 Blood Culture - Preliminary Blood - Venous No growth after 48 hours. Assessment and Plan (1) Opioid use disorder, severe, dependence: Status: Acute (2) NSTEMI (non-ST elevated myocardial infarction): Status: Acute (3) Toxic encephalopathy: Status: Acute (4) MRSA bacteremia: Status: Acute Plan A 34-year-old gentleman admitted with shock and staphylococcal bacteremia on a background of polysubstance abuse with likely cocaine induced vasospasm resulting in acute kidney injury and NSTEMI, also noted to have small-bowel obstruction MRSA bacteremia complicated by septic shock on presentation Continue Vancomycin follow repeat cultures , negative ID consult, finish 4 weeks of IV Vancomycin PICC placement once clear ACute Toxic encephalopathy likely secondary to polysubstance abuse and overdose, on presentation CT head with no acute findings back to baseline NSTEMI likely septic\ischemic Cardiology service appreciated 2D echocardiogram with systolic dysfunction and wall motion abnormalities started on heparin drip, but had to stop it secondary to worsening thrombocytopenia while in ICU Cardio asked to start Aspirin if remains >50 Acute respiratory failure secondary to polysubstance abuse required ventilatory support, extubated 02/24/2025. Wean down supplemental oxygen as tolerated repeated CXR showing possible fluid overload\inflammation give Lasix IV Give IV steroids Thrombocytopenia likely sepsis related Improving Cardio asked to start Aspirin if remains >[address] abdomen with evidence of small-bowel obstruction. General surgery service care appreciated. Acute renal failure on background of polysubstance abuse and shock resolved IVDU On Suboxone Addiction team input appreciated, Suboxone dose adjusted increase Clonidine to TID if tolerated Prophylaxis: Pneumatic compression Diet: Regular The patient will need inpatient stay for IV antibiotics for bacteremia pending resolution of fever, weaning down O2 as tolerated and follow Quality Stroke Does the patient have a stroke diagnosis?: No VTE Prior VTE?: No VTE Risk Level:: Medical - moderate - high VTE Device Contraindication: N/A - Device Ordered VTE Drug Contraindication: N/A - Med Ordered
[2025-02-28 15:12] VITALS: BP 101/76; PULSE 98; RESP 18; TEMP 36.5; O2SAT 96
--- NOTE | 2025-02-28 15:20 | MHC.CM.PN ---
CM met with Patient at his request. Per Patient's request, CM called Patient's Grandmother/Izzy @ [phone], but was only able to leave a message. CM informed Izzy that Patient is trying to reach someone in the family to determine if anyone is able to visit esteban to bring him clothes for rehab and to assist with facility choice. CM awaits a return call from Izzy.
[2025-02-28 18:56] VITALS: BP 128/75; PULSE 89; RESP 18; TEMP 36.6; O2SAT 95
[2025-02-28] MEDS: 0.9 % Sodium Chloride Flush 10 ML SYRINGE 5 ML IVFLUSH (23:12)
[2025-02-28 23:19] VITALS: BP 116/81; PULSE 73; RESP 18; TEMP 36.6; O2SAT 95
[2025-02-28] MEDS: Zolpidem Tartrate 5 MG TABLET PO (23:21)
[2025-02-28] MEDS: Lidocaine 4 % Patch ADH..PATCH 1 PATCH TRANSDERMA (23:22)
[2025-03-01 03:07] VITALS: BP 105/68; PULSE 60; RESP 18; TEMP 36; O2SAT 95
[2025-03-01] MEDS: oxyCODONE HCl Immed Release 5 MG TABLET PO ×3 (05:39→23:26)
[2025-03-01] MEDS: LORazepam 0.5 MG TABLET 0.25 MG PO ×3 (05:39→23:22)
[2025-03-01 06:00] VITALS: BMI 19.6
[2025-03-01 07:29] LABS: Creatinine Clr Calc Pharmacy 143.2; Estimated Glomerular Filt Rate > 60
[2025-03-01] MEDS: methylPREDNISolone Sod Succ 40 MG/ML VIAL IVPUSH (08:27)
[2025-03-01] MEDS: Aspirin Enteric Coated 81 MG TABLET.DR PO (08:27)
[2025-03-01] MEDS: Furosemide 20 MG/2 ML VIAL 40 MG IVPUSH (08:27)
[2025-03-01] MEDS: Nicotine 21 MG PATCH.TD24 TRANSDERMA (08:27)
[2025-03-01] MEDS: Buprenorphine/Naloxone 8/2 mg FILM 1 FILM SUBLINGUAL ×2 (08:28→23:21)
[2025-03-01] MEDS: Ibuprofen 400 MG TABLET PO ×3 (08:28→17:08)
[2025-03-01] MEDS: Lidocaine 4 % Patch ADH..PATCH 2 PATCH TRANSDERMA (08:29)
[2025-03-01] MEDS: 0.9 % Sodium Chloride Flush 10 ML SYRINGE 5 ML IVFLUSH ×3 (08:30→23:36)
[2025-03-01] MEDS: Acetaminophen Oral Liquid 650 MG/20.3 ML SOLUTION 975 MG PO ×3 (08:31→23:28)
[2025-03-01] MEDS: 0.9 % Sodium Chloride Flush 3 ML SYRINGE IVFLUSH ×4 (08:32→23:32)
--- NOTE | 2025-03-01 10:29 | MHC.CM.PN ---
Patient has chosen [facility] and CM has asked SNF to initiate insurance auth.CM will follow.
[2025-03-01] MEDS: vancomycin HCL 1,000 MG in 0.9 % Sodium Chloride 250 ML 270 MG IV ×2 (11:37→23:21)
--- NOTE | 2025-03-01 13:17 | P.PNIM_ITS ---
Subjective Subjective Date of Service: 03/01/25 Interval History: Seen and evaluated this morning no fever or chills cultures negative , PICC Line placed anxious and restless on occasions still on O2 supplement Physical Exam 2 Vital Signs: Vital Signs: Last Vital Signs Temp 96.8 F 03/01/25 03:07 Pulse 60 03/01/25 03:07 Resp 18 03/01/25 03:07 BP 105/68 03/01/25 03:07 Pulse Ox 95 03/01/25 03:07 O2 Del Method Room Air 03/01/25 03:07 O2 Flow Rate 3 02/28/25 11:36 FiO2 21 02/23/25 09:00 BMI result Body Mass Index 19.6 Const: Other: Constitutional : Awake, interactive, mildly anxious, not in distress Neck : Normal inspection, Supple Cardiovascular : RRR, no JVP, trace lower extremity edema Respiratory : good bilateral air entry, no crackles, wheezes or rhonchi Gastrointestinal: soft, lax, Normal bowel sounds, Non tender Skin : Warm, Dry, left hand dorsal ulcer with no erythema Neurological : Alert & oriented x3, No focal deficit Objective Data Active Medications Acetaminophen (Acetaminophen Oral Liquid 650 Mg/20.3 Ml Solution) 975 mg PO QSHIFT [facility] Last Admin: 03/01/25 08:31 Dose: 975 mg Documented By: SARAH Aspirin (Aspirin Enteric Coated 81 Mg Tablet.Dr) 81 mg PO DAILY [facility] Last Admin: 03/01/25 08:27 Dose: 81 mg Documented By: SARAH Buprenorphine/Naloxone (Buprenorphine/Naloxone 8/2 Mg Film) 1 film SUBLINGUAL BID [facility] Buprenorphine/Naloxone (Buprenorphine/Naloxone 8/2 Mg Film) 1 film SUBLINGUAL DAILY PRN PRN Reason: Opiate Withdrawal Clonidine HCl (Clonidine Hcl 0.1 Mg Tablet) 0.1 mg PO BID PRN; Protocol PRN Reason: anxiety Last Admin: 02/28/25 23:22 Dose: 0.1 mg Documented By: BREANA Dicyclomine HCl (Dicyclomine Hcl 10 Mg Capsule) 10 mg PO QIDACHS PRN PRN Reason: abdominal pain, cramps Last Admin: 02/28/25 13:29 Dose: 10 mg Documented By: YOCASTA Furosemide (Furosemide 20 Mg/2 Ml Vial) 40 mg IVPUSH DAILY [facility]; Protocol Last Admin: 03/01/25 08:27 Dose: 40 mg Documented By: SARAH Vancomycin HCl 1,000 mg/ (Sodium Chloride) 270 mls @ 270 mls/hr IV Q12H [facility] Last Admin: 03/01/25 11:37 Dose: 270 mls/hr Documented By: SARAH Ibuprofen (Ibuprofen 400 Mg Tablet) 400 mg PO TIDWM [facility] Last Admin: 03/01/25 12:38 Dose: 400 mg Documented By: SARAH Lidocaine (Lidocaine 4 % Patch Adh..Patch) 2 patch TRANSDERMA DAILY [facility]; Protocol Last Admin: 03/01/25 08:29 Dose: 2 patch Documented By: SARAH Lidocaine (Lidocaine 4 % Patch Adh..Patch) 1 patch TRANSDERMA BEDTIME [facility]; Protocol Last Admin: 02/28/25 23:22 Dose: 1 patch Documented By: BREANA Lorazepam (Lorazepam 0.5 Mg Tablet) 0.25 mg PO Q4H PRN PRN Reason: anxiety/restlessness Last Admin: 03/01/25 05:39 Dose: 0.25 mg Documented By: BREANA Methylprednisolone Sodium Succinate (Methylprednisolone Sod Succ 40 Mg/Ml Vial) 40 mg IVPUSH Q24H [facility] Last Admin: 03/01/25 08:27 Dose: 40 mg Documented By: SARAH Multi-Ingred Cream/Lotion/Oil/Oint (Artificial Tears Ophth Oint 3.5 Gm Tube) 1 appl EYE-BOTH TID PRN; Protocol PRN Reason: Dry Eyes Naloxone HCl (Naloxone Hcl 0.4 Mg/Ml Vial) 0.2 mg IVPUSH Q2M PRN PRN Reason: Excessive sedation or RR < 8 Nicotine (Nicotine 21 Mg Patch.Td24) 21 mg TRANSDERMA DAILY [facility] Last Admin: 03/01/25 08:27 Dose: 21 mg Documented By: SARAH Ondansetron HCl (Ondansetron Hcl 4 Mg/2 Ml Vial) 4 mg IVPUSH Q6H PRN PRN Reason: Nausea and Vomiting Last Admin: 02/25/25 18:37 Dose: 4 mg Documented By: RANDAL Oxycodone HCl (Oxycodone Hcl Immed Release 5 Mg Tablet) 5 mg PO Q6H PRN PRN Reason: Pain, Severe (Pain Scale 7-10) Last Admin: 03/01/25 12:42 Dose: 5 mg Documented By: SARAH Pharmacy Consult (Consult Rx Vancomycin Dosing) 1 each MISCELLANE DAILY PRN PRN Reason: Consult order Sodium Chloride (0.9 % Sodium Chloride Flush 3 Ml Syringe) 3 ml IVFLUSH [facility] Last Admin: 03/01/25 08:48 Dose: 3 ml Documented By: SARAH Sodium Chloride (0.9 % Sodium Chloride Flush 10 Ml Syringe) 5 ml IVFLUSH [facility] Last Admin: 02/28/25 23:12 Dose: 5 ml Documented By: BREANA Trazodone HCl (Trazodone Hcl 50 Mg Tablet) 50 mg PO BEDTIME PRN PRN Reason: Insomnia Last Admin: 02/27/25 23:02 Dose: 50 mg Documented By: BREANA Zolpidem Tartrate (Zolpidem Tartrate 5 Mg Tablet) 5 mg PO BEDTIME PRN PRN Reason: Insomnia Last Admin: 02/28/25 23:21 Dose: 5 mg Documented By: BREANA Labs 02/28/25 07:00 03/01/25 06:19 Labs: Laboratory Results - last 24 hr 03/01/25 06:19 Hold Purple Top SEE NOTE Estim Creat Clear Calc 143.2 Estimated GFR > 60 Microbiology Microbiology Results: Microbiology 02/24/25 09:37 Blood Culture - Final Blood - Venous No growth after 5 days. 02/24/25 09:36 Blood Culture - Final Blood - Venous No growth after 5 days. Assessment and Plan (1) Opioid use disorder, severe, dependence: Status: Acute (2) NSTEMI (non-ST elevated myocardial infarction): Status: Acute (3) Toxic encephalopathy: Status: Acute (4) MRSA bacteremia: Status: Acute (5) Acute alteration in mental status: Status: Acute Plan A 34-year-old gentleman admitted with shock and staphylococcal bacteremia on a background of polysubstance abuse with likely cocaine induced vasospasm resulting in acute kidney injury and NSTEMI, also noted to have small-bowel obstruction MRSA bacteremia complicated by septic shock on presentation Continue Vancomycin follow repeat cultures , negative ID consult, finish 4 weeks of IV Vancomycin PICC placement once clear ACute Toxic encephalopathy likely secondary to polysubstance abuse and overdose, on presentation CT head with no acute findings back to baseline NSTEMI likely septic\ischemic Cardiology service appreciated 2D echocardiogram with systolic dysfunction and wall motion abnormalities started on heparin drip, but had to stop it secondary to worsening thrombocytopenia while in ICU Cardio asked to start Aspirin if remains >50, started and tolerated Acute respiratory failure secondary to polysubstance abuse required ventilatory support, extubated 02/24/2025. Wean down supplemental oxygen as tolerated repeated CXR showing possible fluid overload\inflammation give Lasix IV Give IV steroids Thrombocytopenia likely sepsis related Improving SBO resolved CT abdomen with evidence of small-bowel obstruction. General surgery service care appreciated. Acute renal failure on background of polysubstance abuse and shock resolved IVDU On Suboxone Addiction team input appreciated, Suboxone dose adjusted increase Clonidine to TID if tolerated Prophylaxis: Pneumatic compression Diet: Regular The patient will need inpatient stay for IV antibiotics for bacteremia pending weaning down O2 and IV antibiotic as outpatient plan as tolerated and follow Quality Stroke Does the patient have a stroke diagnosis?: No VTE Prior VTE?: No VTE Risk Level:: Medical - moderate - high VTE Device Contraindication: N/A - Device Ordered VTE Drug Contraindication: N/A - Med Ordered
[2025-03-01] MEDS: Dicyclomine HCl 10 MG CAPSULE PO (15:03)
[2025-03-01 15:50] VITALS: BP 109/66; PULSE 60; RESP 20; TEMP 36.1; O2SAT 98
--- NOTE | 2025-03-01 17:07 | PC.NURSE ---
Patient ambulated over 100 feet in [place] accompanied by MATERIAL MIXER, will allow shower monitored by MATERIAL MIXER if patient requests
[2025-03-01] MEDS: cloNIDine HCL 0.1 MG TABLET PO (17:19)
[2025-03-01 19:21] VITALS: BP 101/60; PULSE 60; RESP 16; TEMP 35.9; O2SAT 97
[2025-03-01 20:49] LABS: HCV Log PCR <1.18 NOT DETECTED Log IU/mL (NOT DETECTED); HepC Viral Load <15 NOT DETECTED IU/mL (NOT DETECTED)
--- NOTE | 2025-03-01 21:50 | HE.PHANOTE ---
VANCO Changing to Q8H dosing, trough super subtherapeutic. Predicted trough 16.4, AUC 580. Next trough 03/02 @2100.
[2025-03-01 23:20] VITALS: BP 119/78; PULSE 73; RESP 16; TEMP 36.8; O2SAT 97
[2025-03-01] MEDS: Lidocaine 4 % Patch ADH..PATCH 1 PATCH TRANSDERMA (23:21)
[2025-03-01] MEDS: traZODone HCL 50 MG TABLET PO (23:26)
[2025-03-02 03:22] VITALS: BP 98/60; PULSE 66; RESP 17; TEMP 36.2; O2SAT 98
[2025-03-02 05:51] VITALS: BMI 20.1
[2025-03-02] MEDS: vancomycin HCL 1,000 MG in 0.9 % Sodium Chloride 250 ML 270 MG IV (06:25)
[2025-03-02] MEDS: Ibuprofen 400 MG TABLET PO ×2 (07:53→14:03)
[2025-03-02] MEDS: Furosemide 20 MG/2 ML VIAL 40 MG IVPUSH (07:53)
[2025-03-02] MEDS: oxyCODONE HCl Immed Release 5 MG TABLET PO ×2 (07:54→13:58)
[2025-03-02] MEDS: Aspirin Enteric Coated 81 MG TABLET.DR PO (07:54)
[2025-03-02] MEDS: methylPREDNISolone Sod Succ 40 MG/ML VIAL IVPUSH (07:54)
[2025-03-02] MEDS: Acetaminophen Oral Liquid 650 MG/20.3 ML SOLUTION 975 MG PO (07:55)
[2025-03-02] MEDS: Lidocaine 4 % Patch ADH..PATCH 2 PATCH TRANSDERMA (07:56)
[2025-03-02] MEDS: Nicotine 21 MG PATCH.TD24 TRANSDERMA (07:56)
[2025-03-02 08:00] VITALS: BP 107/69; PULSE 61; RESP 18; TEMP 36.4; O2SAT 97
[2025-03-02 08:09] LABS: Creatinine Clr Calc Pharmacy 146.9; Estimated Glomerular Filt Rate > 60
--- NOTE | 2025-03-02 11:44 | MHC.CM.PN ---
Addendum entered by Ivett Huffman 03/02/25 12:05: CM met with Patient at bedside and informed him of the final details of the dc plan. Original Note: Per ROUNDS discussion, Patient is medically cleared for dc to SNF today. Patient will dc to [facility] today at 3PM, via [facility].
[2025-03-02 12:00] VITALS: BP 110/74; PULSE 70; RESP 18; TEMP 36.3; O2SAT 97
--- NOTE | 2025-03-02 12:18 | P.DS_ITS ---
DS: Providers Provider Date of Service: 03/02/25 Date of admission: 02/21/25 22:53 Date of discharge: 03/02/25 Primary care physician: Sandra Miner MD Consults: 02/22/25 07:25 Consult to Wound Care Routine Reason for consultation: L hand 02/22/25 08:17 Consult to General Surgery Routine [place] [facility] Reason for consultation: SBO Has provider been notified: No 02/22/25 10:13 Consult to Cardiology Routine Consulting Provider[place] [facility] Reason for consultation: NSTEMI Has provider been notified: Yes 02/26/25 10:14 Addiction Medicine Provider Routine Consulting Provider: [facility] Reason for consultation: IVDU on Suboxone for symptoms control 02/26/25 17:23 Consult to Infectious Diseases Routine Consulting [place] [facility] Reason for consultation: MRSA Bacteremia 02/27/25 08:21 Inpt - Recovery Team Routine Comment: Reason for consultation: ROSSY eval DS: Diagnosis Discharge Diagnosis (1) Opioid use disorder, severe, dependence: Status: Acute (2) NSTEMI (non-ST elevated myocardial infarction): Status: Acute (3) Toxic encephalopathy: Status: Acute (4) MRSA bacteremia: Status: Acute (5) Acute alteration in mental status: Status: Acute DS: Summary Hospital Course Hospital Course: 34-year-old male with a past medical history of polysubstance abuse,? who presented to emergency department was a overdose. ? Patient was found in his vehicle unresponsive by police,? received 4 mg of intro nasal Narcan,? and became slightly more responsive. On arrival to the emergency department,? patient is tachycardic to 150s, respiratory rate 50s and 60s,? febrile to 104, required emergent intubation for airway protection. Laboratory data significant for WBC 21.8,? serum bicarb 14, anion gap 26, BUN 44, creatinine 2.56, lactic 10.2,? Troponin sensitivity 1268, CK 503. ?Venous gas:? 7./15 URINE TOX: ? positive for fentanyl and cocaine, also positive for UTI? IMAGING:? ?HEAD CT: no acute findings ?ABDOMINAL CT: ? concerning for small bowel obstruction ?Chest CT:? no acute infectious process ?ED course:? ?Patient received? about 4 L? bolus,? Narcan, vancomycin 1500mg, Zosyn 3.375 g, ceftriaxone 2 g and Tylenol 1 g.? Started on vasopressors due to high sedation requirements? Hospital Course Required pressor support despite volume bolus; also required urgent intubation secondary to severe septic shock. Patient was successfully weaned off of pressors and extubated without issue. On 02/26/2025 he was transferred out of ICU to telemetry. Blood cultures from 02/21/2025 ( admission) grew MRSA sensitive to vancomycin. Seen in consultation by Infectious Disease who recommended IV vancomycin 1 g IV q.8 for 28 days after discharge. 2D echo done this admission failed to demonstrate vegetation. PICC line was inserted for long-term antibiotic use. At this point in time he is medically acceptable to transfer to detention facility for 4 weeks of IV vancomycin. Given his opiate abuse, script for Suboxone we will be sent in addition to script for antibiotic. Time Attestation Discharge Coordination Time (in mins): 35 Quality: Safe Use of Opioids Does Pt have an Active Cancer Diagnosis on the Problem List?: No Quality: Stroke Does the patient have a stroke diagnosis?: No Physical Exam Vital Signs: Vital Signs: Last Vital Signs Temp 97.3 F 03/02/25 12:00 Pulse 70 03/02/25 12:00 Resp 18 03/02/25 12:00 BP 110/74 03/02/25 12:00 Pulse Ox 97 03/02/25 12:00 O2 Del Method Room Air 03/02/25 12:00 O2 Flow Rate 3 02/28/25 11:36 FiO2 21 02/23/25 09:00 BMI result Body Mass Index 20.1 Const: Other: Awake alert no acute distress Resp: Other: clear to auscultation bilaterally no rales rhonchi or wheezes Cardio: Other: no S4; positive S1-S2; no S3 murmurs rubs or gallops GI: Other: soft nontender nondistended normoactive bowel sounds Extrem: Other: no edema bilaterally DS: Data Data Completed and Pending Labs on day of discharge: Laboratory Results - last 24 hr 02/28/25 03/01/25 03/02/25 07:00 20:59 07:38 Hold Purple Top SEE NOTE Creatinine 0.63 Estim Creat Clear Calc 146.9 Estimated GFR > 60 Random Vancomycin 6.0 L Hep C Viral Load <15 NOT DETECTED Hep C Viral Load Log <1.18 NOT DETECTED Preliminary micro results at discharge 02/25/25 19:17 Blood Culture - Preliminary Blood - Venous No growth after 48 hours. 02/25/25 19:17 Blood Culture - Preliminary Blood - Venous No growth after 48 hours. Discharge Plan Discharge Anticipated Discharge Date/Time: 03/02/25 11:56 Patient Disposition: Xfer SNF Discharge Diagnosis: MRSA bacteremia [facility]: [facility] - 1 Week Sandra Miner MD [Primary Care Provider] - 1 Week Discharge Medications: New trazodone 50 mg Tablet 50 mg PO BEDTIME PRN (Reason: Insomnia) Qty: 30 0RF aspirin 81 mg Tablet,Delayed Release (Dr/Ec) 81 mg PO DAILY Qty: 30 0RF lorazepam 0.5 mg Tablet 0.25 mg PO Q4H PRN (Reason: Anxiety/Restlessness) Qty: 60 0RF nicotine 21 mg/24 hr Patch 24 Hour 21 mg transdermal DAILY Qty: 30 0RF oxycodone 5 mg Tablet 5 mg PO Q6H PRN (Reason: Pain, Severe (Pain Scale 7-10)) Qty: 60 0RF Rx Instructions: Partial Fill upon patient request. buprenorphine-naloxone [Suboxone] 8-2 mg Film 1 film sublingual BID Qty: 60 0RF vancomycin in 0.9 % sodium chl 1 gram/200 mL piggyback 1 g IV Q8H 28 Days Continued clonidine HCl 0.1 mg tablet 0.1 mg PO BID PRN (Reason: anxiety) Discontinued buprenorphine-naloxone [Suboxone] 12-3 mg film 1 film sublingual BID Discharge Orders: Discharge Order (Routine); Ordered 03/02/25 Ordered By: Pastor Chung Diet: Advance to usual diet Activity on Discharge: As tolerated Stand Alone Forms: Patient Portal Discharge page Print Language: Spanish Care Plan Goals: Can you meds as outlined on transfer sheet. we will need 28 days from discharge of IV vancomycin as ordered Health Concerns: continue Suboxone as ordered Plan of Treatment: as per receiving facility Assessment: see discharge summary
--- NOTE | 2025-03-02 13:27 | MHC.CM.PN ---
Scripts for Suboxone, Oxycodone, and Ativan have been faxed to [facility] @ [phone].
[2025-03-02] MEDS: Buprenorphine/Naloxone 8/2 mg FILM 1 FILM SUBLINGUAL (14:00)
--- NOTE | 2025-03-02 16:49 | PC.NURSE ---
attempted to give RN to RN handoff report X2 to [place] with no answer.
== END 2025-03-02 16:06 | disposition skilled nursing facility (03) | DRG 816 ==
LOC: HO.ED 22:05 → HO.EDOVER 23:00 → HO.ICU 23:01 → HO.IMC 02-25 14:56
PROVIDERS: Internal Medicine; Internal Medicine Pulmonary Disease; Physician Assistant Medical; Student in an Organized Health Care Education/Training Program; Admitting Provider Registered Nurse Community Health; Emergency Provider Emergency Medicine; PCP Internal Medicine; Visit Provider Hospitalist
DX: T40.5X1A Poisoning by cocaine, accidental (unintentional), initial encounter (principal); J96.01 Acute respiratory failure with hypoxia; N17.0 Acute kidney failure with tubular necrosis; R65.21 Severe sepsis with septic shock; R57.0 Cardiogenic shock; A41.9 Sepsis, unspecified organism; G92.8 Other toxic encephalopathy; I21.4 Non-ST elevation (NSTEMI) myocardial infarction; K56.609 Unspecified intestinal obstruction, unspecified as to partial versus complete obstruction; B95.62 Methicillin resistant Staphylococcus aureus infection as the cause of diseases classified elsewhere; M62.82 Rhabdomyolysis; T40.411A Poisoning by fentanyl or fentanyl analogs, accidental (unintentional), initial encounter; L03.114 Cellulitis of left upper limb; D69.59 Other secondary thrombocytopenia; N39.0 Urinary tract infection, site not specified; F11.20 Opioid dependence, uncomplicated; F19.90 Other psychoactive substance use, unspecified, uncomplicated; Z20.822 Contact with and (suspected) exposure to COVID-19; Z79.899 Other long term (current) drug therapy
CPT/HCPCS: 0241U; 36415; 36573; 70450; 71045; 71275; 74177; 80048; 80053; 80143; 80179; 80202; 80307; 81001; 81003; 82550; 82565; 82803; 83605; 83690; 83735; 83880; 84100; 84484; 85007; 85025; 85027; 85610; 85730; 86140; 87040; 87077; 87086; 87147; 87186; 87205; 87389; 87522; 93005; 93306; 94002; 94003; 94799; 99285; C1751; J0131; J0696; J1644; J1885; J1938; J2250; J2405; J2470; J2543; J2704; J2919; J3010; J3370; J3371; J3480; J7120; P9047; Q9957; Q9967; S9485

== ENCOUNTER → 2025-02-21 19:28 | Outpatient (BNV) | payer OTHER, SELFPAY | PROVIDERS: Emergency Provider Emergency Medicine; PCP Internal Medicine; Visit Provider Radiology Neuroradiology | DX: Z45.2 Encounter for adjustment and management of vascular access device (principal) | CPT/HCPCS: 71045 ==

== ENCOUNTER 2025-02-21 22:53 | Outpatient (BNV) | payer OTHER, SELFPAY | END 2025-02-22 04:46 | PROVIDERS: Admitting Provider Registered Nurse Community Health; Emergency Provider Emergency Medicine; PCP Internal Medicine; Visit Provider Internal Medicine Cardiovascular Disease | DX: I42.8 Other cardiomyopathies (principal) | CPT/HCPCS: 93306 ==

== ENCOUNTER 2025-02-21 22:53 | Outpatient (BNV) | payer OTHER, SELFPAY | END 2025-02-27 15:40 | PROVIDERS: Admitting Provider Registered Nurse Community Health; Emergency Provider Emergency Medicine; PCP Internal Medicine; Visit Provider Radiology Diagnostic Radiology | DX: R91.8 Other nonspecific abnormal finding of lung field (principal) | CPT/HCPCS: 71045 ==

== ENCOUNTER → 2025-02-21 22:53 | Outpatient (BNV) | payer OTHER, SELFPAY | PROVIDERS: Admitting Provider Registered Nurse Community Health; Emergency Provider Emergency Medicine; PCP Internal Medicine; Visit Provider Internal Medicine Cardiovascular Disease | DX: I21.4 Non-ST elevation (NSTEMI) myocardial infarction (principal); G92.9 Unspecified toxic encephalopathy; R78.81 Bacteremia; B95.62 Methicillin resistant Staphylococcus aureus infection as the cause of diseases classified elsewhere | CPT/HCPCS: 93010; 99223 ==

== ENCOUNTER → 2025-02-21 22:53 | Outpatient (BNV) | payer OTHER, SELFPAY | PROVIDERS: Admitting Provider Registered Nurse Community Health; Emergency Provider Emergency Medicine; PCP Internal Medicine; Visit Provider Registered Nurse Community Health | DX: J96.00 Acute respiratory failure, unspecified whether with hypoxia or hypercapnia (principal); T50.901A Poisoning by unspecified drugs, medicaments and biological substances, accidental (unintentional), initial encounter; R79.89 Other specified abnormal findings of blood chemistry; N39.0 Urinary tract infection, site not specified; L03.90 Cellulitis, unspecified; K56.609 Unspecified intestinal obstruction, unspecified as to partial versus complete obstruction; N17.9 Acute kidney failure, unspecified; F19.10 Other psychoactive substance abuse, uncomplicated | CPT/HCPCS: 99291; 99292 ==

== ENCOUNTER → 2025-02-21 22:53 | Outpatient (BNV) | payer OTHER, SELFPAY | PROVIDERS: Admitting Provider Registered Nurse Community Health; Emergency Provider Emergency Medicine; PCP Internal Medicine; Visit Provider Internal Medicine Pulmonary Disease | DX: R78.81 Bacteremia (principal); B95.62 Methicillin resistant Staphylococcus aureus infection as the cause of diseases classified elsewhere; N17.9 Acute kidney failure, unspecified; F19.10 Other psychoactive substance abuse, uncomplicated; I21.4 Non-ST elevation (NSTEMI) myocardial infarction; K56.609 Unspecified intestinal obstruction, unspecified as to partial versus complete obstruction; G92.9 Unspecified toxic encephalopathy | CPT/HCPCS: 99291 ==

== ENCOUNTER → 2025-02-21 22:53 | Outpatient (BNV) | payer OTHER, SELFPAY | PROVIDERS: Admitting Provider Registered Nurse Community Health; Emergency Provider Emergency Medicine; PCP Internal Medicine; Visit Provider Internal Medicine | DX: I21.4 Non-ST elevation (NSTEMI) myocardial infarction (principal); G92.9 Unspecified toxic encephalopathy; R78.81 Bacteremia; B95.62 Methicillin resistant Staphylococcus aureus infection as the cause of diseases classified elsewhere; R41.82 Altered mental status, unspecified; F19.10 Other psychoactive substance abuse, uncomplicated | CPT/HCPCS: 99222 ==

== ENCOUNTER → 2025-02-21 22:53 | Outpatient (BNV) | payer OTHER, SELFPAY | PROVIDERS: Admitting Provider Registered Nurse Community Health; Emergency Provider Emergency Medicine; PCP Internal Medicine; Visit Provider Nurse Practitioner Psychiatric/Mental Health | DX: F11.20 Opioid dependence, uncomplicated (principal) | CPT/HCPCS: 99222; 99232 ==

== ENCOUNTER → 2025-02-21 22:53 | Outpatient (BNV) | payer OTHER, SELFPAY | PROVIDERS: Admitting Provider Registered Nurse Community Health; Emergency Provider Emergency Medicine; PCP Internal Medicine | DX: K56.609 Unspecified intestinal obstruction, unspecified as to partial versus complete obstruction (principal) | CPT/HCPCS: 99232 ==

== ENCOUNTER → 2025-02-21 22:53 | Outpatient (BNV) | payer OTHER, SELFPAY | PROVIDERS: Admitting Provider Registered Nurse Community Health; Emergency Provider Emergency Medicine; PCP Internal Medicine; Visit Provider Student in an Organized Health Care Education/Training Program | DX: R78.81 Bacteremia (principal); G92.9 Unspecified toxic encephalopathy; B95.62 Methicillin resistant Staphylococcus aureus infection as the cause of diseases classified elsewhere; I21.4 Non-ST elevation (NSTEMI) myocardial infarction; R41.82 Altered mental status, unspecified; F11.20 Opioid dependence, uncomplicated | CPT/HCPCS: 99232; 99233; 99239 ==